=== PATIENT | male | born 1940 | race Caucasian/White ===

== ENCOUNTER 2018-06-01 14:36 | Inpatient (IN) | payer MEDICARE, SELFPAY ==
[2018-06-01] VITALS (8 sets, daily range): BP systolic 120–158; BP diastolic 69–87; PULSE 78–98; RESP 13–18; TEMP 36.4–39.3; O2SAT 97–99; BMI 30.8; BMI 30.2
--- NOTE | 2018-06-01 15:22 | DI.RAD.S_ITS ---
PROCEDURE: XR CHEST 2V INDICATIONS: chest pain TECHNIQUE: 2 views of the chest were acquired. COMPARISON: [facility], , CHEST 2 VIEW, 11/05/2014, 8:32. FINDINGS: Surgical changes and devices: None. Lungs and pleura: No pleural effusions or pneumothorax. Mild pulmonary vascular congestion is seen. No definite focal infiltrate. Mediastinum: Mediastinal contours are normal. Cardiac silhouette is enlarged. Aortic arch calcification is seen. Bones and chest wall: No suspicious bony abnormalities. Soft tissues appear unremarkable. IMPRESSION: Cardiomegaly and mild congestion. No focal infiltrate or pneumothorax. Dictated by: Jose Miguel Vences M.D. on 06/01/2018 at 15:35 Approved by: Jose Miguel Vences M.D. on 06/01/2018 at 15:36
[2018-06-01 15:31] LABS: Add Manual Diff / Slide Review NO; Basophils Percent Auto 0.3 % (0-2); Eosinophils Percent Auto 0.1 % (2-4); Hematocrit 38.2 % (41-53); Hemoglobin 13.2 g/dL (13.5-17.5); Lymphocytes Percent Auto 3.1 % (25-40); Mean Corpuscular HGB Conc 34.6 % (30-36); Mean Corpuscular Hemoglobin 31.6 PG (26-34); Mean Corpuscular Volume 91.5 fL (80-100); Monocytes Percent Auto 1.9 % (3-14); Neutrophils Absolute Auto 15500 /uL (3000-5900); Neutrophils Percent Auto 94.6 % (50-75); Platelet Count 356 X10^3/uL (150-400); Red Blood Cell Count 4.18 X10^6/uL (4.5-5.9); Red Cell Distribution Width 13.2 % (11.6-14.8); White Blood Cell Count 16.4 X10^3/uL (4.5-11.0)
[2018-06-01 15:44] LABS: Alanine Aminotransferase 28 IU/L (21-72); Albumin Globulin Ratio 1.3 (1.0-2.8); Alkaline Phosphatase 66 U/L (38-126); Aspartate Aminotransferase 24 IU/L (17-59); Bilirubin Total 1.2 mg/dL (0.2-1.3); Blood Urea Nitrogen 18 mg/dL (9-20); Calcium 9.8 mg/dL (8.4-10.2); Carbon Dioxide 23 mmol/L (22-32); Chloride 100 mmol/L (98-107); Estimated Glomerular Filt Rate > 60.0 mL/min (>60); Globulin 3.1 g/dL (1.7-4.1); Glucose 140 mg/dL (80-110); HEMOLYSIS < 15 (0-50); Lipase 138 U/L (23-300); Potassium 4.4 mmol/L (3.4-5.1); Sodium 137 mmol/L (137-145); Total Protein 7.1 g/dL (6.3-8.2)
[2018-06-01 15:45] LABS: Lactate (Lactic Acid) 2.7 mmol/L (0.7-2.1)
[2018-06-01] MEDS: SODIUM CHLORIDE 0.9% 1,000 ML 1000 ML IV ×2 (15:45→18:00)
--- NOTE | 2018-06-01 15:52 | DI.CT.S_ITS ---
PROCEDURE: CT ABDOMEN PELVIS W CON INDICATIONS: post L nephrectomy fever, unclear source - abscess? TECHNIQUE: After the administration of intravenous contrast, 5 mm thick sections acquired from the diaphragm to the symphysis. 5 mm coronal and sagittal reformats were acquired. For radiation dose reduction, the following was used: automated exposure control, adjustment of mA and/or kV according to patient size. COMPARISON: [facility], CT, ABDOMEN/PELVIS WITHOUT CONTRAS, 09/01/2017, 9:30. FINDINGS: Image quality: Excellent. ABDOMEN: Lung bases: Lung bases are clear. Heart size is enlarged. There is calcification of the coronary vasculature. Solid organs: Liver is normal in size and enhancement. Gallbladder demonstrates high density foci within its lumen. Biliary system is non dilated. Pancreas enhances normally. Spleen is normal in size and enhancement. No adrenal nodules. The right kidney is within normal limits. Status post left nephrectomy. There is nonloculated fluid within the left retroperitoneum, consistent with post surgical sequelae. No peripheral enhancement to indicate abscess. Peritoneum and bowel: Bowel loops demonstrate normal wall thickness and caliber. There is diverticulosis of the descending and sigmoid colon. No free fluid or air. Nodes and vessels: No retroperitoneal or mesenteric adenopathy by size criteria. Aorta and inferior vena cava are normal in size. Miscellaneous: No ventral hernias. PELVIS: Genitourinary: Bladder wall thickness is normal. Miscellaneous: No inguinal hernias or adenopathy. Bones: No suspicious bony lesions. No vertebral body compression fractures. IMPRESSION: 1. Post surgical sequelae with expected left-sided retroperitoneal postsurgical fluid, status post nephrectomy. No evidence of loculated and/or peripherally enhancing fluid collection to indicate abscess. 2. Left colonic diverticulosis with no evidence of acute diverticulitis. 3. Coronary artery disease. Dictated by: Francy Graff M.D. on 06/01/2018 at 16:32 Approved by: Francy Graff M.D. on 06/01/2018 at 16:35
[2018-06-01 15:56] LABS: Procalcitonin 28.12 ng/mL (<0.5)
--- NOTE | 2018-06-01 15:58 | PC.NURSE ---
lab draws second set of blood cultures, radiology at BS for CXR
[2018-06-01 16:00] LABS: Troponin I < 0.012 ng/mL (0.01-0.034)
[2018-06-01] MEDS: PIPERACILLIN-TAZO 4.5 GM/100 ML FROZ.PIGGY IV (16:14)
[2018-06-01] MEDS: VANCOMYCIN 1,500 MG in SODIUM CHLORIDE 0.9% 500 ML 333.333 ML IV (17:06)
[2018-06-01 17:10] LABS: Bacteria Urine None Seen; RBC Urine None Seen (0-5/HPF)
[2018-06-01 17:11] LABS: Appearance Urine UA CLEAR; Bilirubin Urine UA NEGATIVE (NEGATIVE); Color Urine UA YELLOW; Glucose Urine UA NEGATIVE (Normal); Ketones Urine UA NEGATIVE (NEGATIVE); Leukocyte Esterase Urine UA NEGATIVE (NEGATIVE); Nitrite Urine UA Negative (Negative); Occult Blood Urine UA NEGATIVE (Negative); Protein Urine UA NEGATIVE (Negative); Urobilinogen Urine UA 0.2 E.U./dL (0.2)
[2018-06-01 17:20] LABS: Culture Indicated Urine Cult Not Indicated; Squamous Epithelial Cell Urine 0-1 /HPF; WBC Urine 0-1/HPF (0-5/HPF)
--- NOTE | 2018-06-01 17:45 | ED.SOB ---
HPI - SOB/Dyspnea General Chief Complaint: Shortness of Breath/Dyspnea Stated Complaint: nausea/shaky/feels like body is frozen Time Seen by Provider: 06/01/18 15:08 History of Present Illness HPI 77-year-old male ~15 days post-left nephrectomy for a malignant mass presents for evaluation of malaise, nausea, and shaking chills of proximally one half day duration. Denies chest pain, shortness breath, dysuria, urinary frequency, or abdominal pain, continues to take PO adequately produce urine, flatus, stool at baseline. Patient is on Xarelto for prior DVT's. M/S/F/SocHx notable for: please see HPI; remainder reviewed with patient and in chart. ROS: Negative constitutional, eye, cardiovascular, pulmonary, GI, , MSK, skin, neurologic, psychiatric, endocrine unless noted in the HPI. Exam HR 95, BP 141/87, RR 16, T 97.6 ?F, SaO2 99 % on room air; at 2:43 PM. Gen: pleasant, unwell but not in extremis, appears moderately uncomfortable.. HEENT: NC, AT, PEERL, EOMI, neck supple, no goiter appreciated. Resp: Clear to auscultation bilaterally, normal work of breathing, no accessory muscle usage. Card: Regular rate and rhythm with no murmurs, rubs, or gallops, extremities warm and well perfused. GI: Non-tender to palpation throughout all quadrants, no focal tenderness at McBurney's point, negative Curtis's sign, non-distended, no rebound or guarding. Well healed surgical sites. : No suprapubic tenderness to palpation. MSK: No visible deformities, strength and tone without visually appreciable deficit. Skin: Normal color, no petechiae, no further visible lesions. Neuro: AOx3, no facial asymmetry, vision and hearing WNL. Psych: Mood and affect appropriate. Labs / Imaging (pertinent): WBC 16.4, Hb 13.2, PLT 356, Na 137, K 4.4, Bilirubin 1.2, Lactate 2.7, troponin <0.012, Pro calcitonin 28.12, lipase 138. UA: negative bacteria, negative nitrites, negative leukocyte esterase, 0-1 squamous epithelial cells. CXR: cardiomegaly and mild congestion. No focal infiltrate or pneumothorax. CT abdomen/pelvis: postsurgical sequela with expected left-sided retroperitoneal postsurgical fluid, status post nephrectomy, no evidence of loculated and/or peripherally enhancing fluid collection to indicate abscess. Left colonic diverticulosis with no evidence for acute diverticulitis, coronary artery disease. EKG: SR 80 bpm, no ST segment elevations or depressions, no LBBB. MDM Previous chart, nursing note, labs, imaging, and vitals reviewed. A: 77-year-old male ~15 days post-left nephrectomy for a malignant mass presents for evaluation of malaise, nausea, and shaking chills of proximally one half day duration.. Evaluation: significant concern for sepsis given overall presentation. Source presently unclear. Blood cultures, 30 cc/kg NS fluid bolus (based upon ideal body weight as the patient has a BMI greater than 30), and vancomycin and Zosyn ordered with the initial evaluation. Infectious Source: * Pulmonary: No focal infiltrate on imaging. The absence of significant hypoxemia, tachypnea, or further corroborating symptoms strongly suggests against pneumonia. * Urine: UA noninfectious. * Skin: Consider a cutaneous source unlikely given absence of significant infection appreciated on exam. * AIRPLANE PILOT: Doubt given the lack of meningismus, petechia, and the overall clinical presentation. * Abdomen: Doubt given the non-tender abdomen, and a relatively unremarkable CT abdomen pelvis:. * Spine: Given the absence of back pain and an alternate source further investigation for possible epidural abscess, spinal osteomyelitis, or discitis are not currently warranted. * Lines: Patient without indwelling lines/ports. * Bacteremia: blood cultures pending, cannot be fully excluded at present time. Disposition: admitted for further care. Impression: suspected sepsis (please reference below for remainder of encounter information) Critical Care Time Organ system(s): Cardiopulmonary, vascular, AIRPLANE PILOT, Renal Intervention: Assessment of the patient, interpretation of studies, communication related to patient care. Time: 30 minutes were spent directly related to patient care exclusive of separately billed procedures The patient is also without evidence of pancreatitis (lipase within clinically acceptable limits), adrenal insufficiency is tentatively considered unlikely as there is no evidence of chronic steroid use, no known adrenal insufficiency and the patient has been without refractory hypotension. Thyroid disease was considered, given the absence of known thyroid disease or goiter on exam, and a tentatively explaining etiology for the patient?s presentation further investigation is not currently indicated. Ingestion/OD are felt to be unlikely given history, absence of significant mydriasis, and lack of appreciated clonus or hyperreflexia, as well as an alternate explaining etiology.The possibility of alcohol, benzodiazepine, opiate withdrawal were considered and while history is limited at this point these do not appear to be contributing. Related Data Home Medications Medication Instructions Recorded Confirmed pravastatin [Pravachol] 20 mg PO QDAY #30 tab 07/02/17 06/01/18 amlodipine 2 tab PO DAILY 06/01/18 06/01/18 rivaroxaban [Xarelto] 1 tab PO DAILY 06/01/18 06/01/18 Allergies Allergy/AdvReac Type Severity Reaction Status Date / Time No Known Allergies Allergy Uncoded 01/24/18 12:15 [facility] Social History Smoking Status: Never smoker Exam Initial Vital Signs Initial Vital Signs: Vital Signs Temperature 97.6 F 06/01/18 14:43 Pulse Rate 95 H 06/01/18 14:43 Respiratory Rate 16 06/01/18 14:43 Blood Pressure 141/87 H 06/01/18 14:43 Pulse Oximetry 99 06/01/18 14:43 Course Orders Ordered: ED Orders 06/01/18 15:15 Complete Blood Count AUTO DIFF Stat Comprehensive Metabolic Panel Stat Lactate (Lactic Acid) Stat Lipase Stat Procalcitonin Stat Troponin I Stat 06/01/18 15:22 XR chest 2V Stat EKG-12 Lead Stat 06/01/18 15:48 Blood Culture Stat 06/01/18 15:52 CT abdomen pelvis w con Stat 06/01/18 16:50 Urinalysis and Microscopic Stat Discontinued Medications Sodium Chloride (Normal Saline 0.9%) 1,000 mls @ 1,000 mls/hr IV BOLUS ONE Stop: 06/01/18 16:20 Last Admin: 06/01/18 15:45 Dose: 1,000 mls/hr Sodium Chloride (Normal Saline 0.9%) 1,000 mls @ 1,000 mls/hr IV BOLUS ONE Stop: 06/01/18 16:57 Sodium Chloride (Normal Saline 0.9%) 250 mls @ 1,000 mls/hr IV BOLUS ONE Stop: 06/01/18 16:13 Piperacillin/Tazobactam/Dextrose (Zosyn) 4.5 gm in 100 mls @ 200 mls/hr IV NOW ONE Stop: 06/01/18 16:28 Last Infusion: 06/01/18 17:07 Dose: 0 mls/hr Admin: 06/01/18 16:14 Dose: 200 mls/hr Vancomycin HCl 1,500 mg/ (Sodium Chloride) 500 mls @ 333.333 mls/hr IV NOW ONE Stop: 06/01/18 16:00 Last Admin: 06/01/18 17:06 Dose: 333.333 mls/hr Vital Signs - 8 hr 06/01/18 14:43 06/01/18 15:16 06/01/18 16:18 Temperature 97.6 F Pulse Rate 95 H 98 H 91 H Respiratory Rate 16 13 13 Blood Pressure 141/87 H Blood Pressure [Left Arm] 120/69 139/71 H Pulse Oximetry 99 99 97 MDM - SOB/Dyspnea Lab Data Result diagrams: 06/01/18 15:15 06/01/18 15:15 Lab Results 06/01/18 06/01/18 06/01/18 Range/Units 15:15 15:15 15:15 WBC 16.4 H (4.5-11.0) X10^3/uL RBC 4.18 L (4.5-5.9) X10^6/uL Hgb 13.2 L (13.5-17.5) g/dL Hct 38.2 L (41-53) % MCV 91.5 (80-100) fL MCH 31.6 (26-34) PG MCHC 34.6 (30-36) % RDW 13.2 (11.6-14.8) % Plt Count 356 (150-400) X10^3/uL Neut % (Auto) 94.6 H (50-75) % Lymph % (Auto) 3.1 L (25-40) % [place] % (Auto) 1.9 L (3-14) % Eos % (Auto) 0.1 L (2-4) % Baso % (Auto) 0.3 (0-2) % Neut # (Auto) 80485 H (2144-8424) /uL Sodium 137 (137-145) mmol/L Potassium 4.4 (3.4-5.1) mmol/L Chloride 100 (98-107) mmol/L Carbon Dioxide 23 (22-32) mmol/L BUN 18 (9-20) mg/dL Creatinine 1.00 (0.66-1.25) mg/dL Estimated GFR > 60.0 (>60) mL/min BUN/Creatinine Ratio 18.0 (6-22) Glucose 140 H (80-110) mg/dL Lactate (0.7-2.1) mmol/L Calcium 9.8 (8.4-10.2) mg/dL Total Bilirubin 1.2 (0.2-1.3) mg/dL AST 24 (17-59) IU/L ALT 28 (21-72) IU/L Alkaline Phosphatase 66 (38-126) U/L Troponin I < 0.012 (0.01-0.034) ng/mL Total Protein 7.1 (6.3-8.2) g/dL Albumin 4.0 (3.5-5.0) g/dL Globulin 3.1 (1.7-4.1) g/dL Albumin/Globulin Ratio 1.3 (1.0-2.8) Lipase 138 (23-300) U/L Procalcitonin 28.12 H (<0.5) ng/mL Urine Color Urine Appearance Urine pH (4.5-8.0) Ur Specific [place] (1.000-1.035) Urine Protein (Negative) Urine Glucose (UA) (Normal) g/dL Urine Ketones (NEGATIVE) Urine Occult Blood (Negative) Urine Nitrate (Negative) Urine Bilirubin (NEGATIVE) Urine Urobilinogen (0.2) E.U./dL Ur Leukocyte Esterase (NEGATIVE) Urine RBC (0-5/HPF) Urine WBC (0-5/HPF) Ur Squamous Epith Cells Urine Bacteria (None) Ur Culture Indicated? Micro UA Comment 06/01/18 06/01/18 Range/Units 15:15 16:50 WBC (4.5-11.0) X10^3/uL RBC (4.5-5.9) X10^6/uL Hgb (13.5-17.5) g/dL Hct (41-53) % MCV (80-100) fL MCH (26-34) PG MCHC (30-36) % RDW (11.6-14.8) % Plt Count (150-400) X10^3/uL Neut % (Auto) (50-75) % Lymph % (Auto) (25-40) % [place] % (Auto) (3-14) % Eos % (Auto) (2-4) % Baso % (Auto) (0-2) % Neut # (Auto) (7130-9448) /uL Sodium (137-145) mmol/L Potassium (3.4-5.1) mmol/L Chloride (98-107) mmol/L Carbon Dioxide (22-32) mmol/L BUN (9-20) mg/dL Creatinine (0.66-1.25) mg/dL Estimated GFR (>60) mL/min BUN/Creatinine Ratio (6-22) Glucose (80-110) mg/dL Lactate 2.7 H (0.7-2.1) mmol/L Calcium (8.4-10.2) mg/dL Total Bilirubin (0.2-1.3) mg/dL AST (17-59) IU/L ALT (21-72) IU/L Alkaline Phosphatase (38-126) U/L Troponin I (0.01-0.034) ng/mL Total Protein (6.3-8.2) g/dL Albumin (3.5-5.0) g/dL Globulin (1.7-4.1) g/dL Albumin/Globulin Ratio (1.0-2.8) Lipase (23-300) U/L Procalcitonin (<0.5) ng/mL Urine Color Yellow Urine Appearance Clear Urine pH 7.0 (4.5-8.0) Ur Specific [place] 1.010 (1.000-1.035) Urine Protein Negative (Negative) Urine Glucose (UA) Negative (Normal) g/dL Urine Ketones Negative (NEGATIVE) Urine Occult Blood Negative (Negative) Urine Nitrate Negative (Negative) Urine Bilirubin Negative (NEGATIVE) Urine Urobilinogen 0.2 (0.2) E.U./dL Ur Leukocyte Esterase Negative (NEGATIVE) Urine RBC None seen (0-5/HPF) Urine WBC 0-1/hpf (0-5/HPF) Ur Squamous Epith Cells 0-1 /hpf Urine Bacteria None seen (None) Ur Culture Indicated? Cult not indicated Micro UA Comment Not Reportable Discharge Plan Departure Prescriptions: No Action pravastatin [Pravachol] 20 MG tablet 20 mg PO QDAY Qty: 30 RF: 0 amlodipine 5 mg tablet 2 tab PO DAILY RF: 0 rivaroxaban [Xarelto] 20 mg tablet 1 tab PO DAILY RF: 0
--- NOTE | 2018-06-01 19:26 | PM.HP.1 ---
History of Present Illness Date Patient Seen: 06/01/18 Time Patient Seen: 19:00 Chief complaint: nausea/shaky/feels like body is frozen Narrative: This is a 77-year-old male with with recent history of left-sided nephrectomy for renal cell carcinoma presenting with acute onset of shaking chills, leukocytosis and otherwise unremarkable clinical exam, labs and imaging studies. Denies similar events in the past. Current symptoms were present for the last 12 hr. Due to strong suspicion of possible systemic infection from 100 at night source of this and was made to admit patient for observation. Blood cultures were drawn and consult pending. Patient was started on empiric antibiotic therapies commission of IV vancomycin and Zosyn, IV fluid support, symptomatic and supportive care. Patient History Medical History History of nephrectomy, unilateral (Acute) Hypertension (Acute) Family & Social History Family History: Reviewed 06/01/18 by Omega Seymour MD Social History: household members spouse Prior Living Arrangements House Safety & Behavioral: Feels Safe in Current Yes Environment Been Physically Hurt or No Threatened By a Person Suicidal Ideation Description None Suicide Plan Description No Plan Tobacco & Substance use: Tobacco type cigarettes Smoking Status Former smoker alcohol intake current alcohol intake frequency holiday/special occasion Substance Use Type marijuana Meds Home Medications Medication Instructions Recorded Confirmed Type pravastatin [Pravachol] 20 mg PO QDAY #30 tab 07/02/17 06/01/18 History amlodipine 2 tab PO DAILY 06/01/18 06/01/18 History rivaroxaban [Xarelto] 1 tab PO DAILY 06/01/18 06/01/18 History senna 2 tab PO BID 06/01/18 06/01/18 History Allergies Allergy/AdvReac Type Severity Reaction Status Date / Time No Known Allergies Allergy Uncoded 06/01/18 19:31 Review of Systems Review of Systems All systems reviewed & are unremarkable except as noted in HPI and below Exam Vital Signs (past 8 hours): - 06/01/18 14:43 06/01/18 15:16 06/01/18 16:18 Temperature 97.6 F Pulse Rate 95 H 98 H 91 H Respiratory Rate 16 13 13 Blood Pressure 141/87 H Blood Pressure [Left Arm] 120/69 139/71 H Pulse Oximetry 99 99 97 06/01/18 18:02 06/01/18 18:39 06/01/18 19:02 Temperature 102.7 F H 97.9 F Pulse Rate 90 86 78 Respiratory Rate 14 18 16 Blood Pressure 121/72 H 127/76 H Blood Pressure [Left Arm] 158/82 H Pulse Oximetry 99 99 99 Oxygen Delivery Method Room Air Oxygen Flow Rate 0 Narrative Exam Narrative: Constitutional: Well-nourished well-developed male in mild distress he is alert and oriented x3 HEENT: Unremarkable with Eyes: PERRLA, EOMI Neck: Supple no lymphadenopathy, no jugular venous distention, no bruits on auscultation of carotid artery Pulmonary: Clear to auscultation bilaterally Cardiovascular: regular rhythm and rate no murmurs Gastrointestinal: Abdomen is soft, mildly tender along the fresh incision sites on right upper abdomen along with midline, non discernible organomegaly. Extremities: Warm to touch, no edema Skin: No skin lesions, no rash Neurological: Nonfocal exam Objective Imaging CT scan - abdomen: My impression: Seizures and pelvis: Postsurgical sequela with expected left-sided 33 previously with presurgical fluid, status post nephrectomy, no evidence of loculated and/or peripherally enhancing fluid collection to indicate abscess. Left colonic diverticulosis with no evidence of acute diverticulitis, coronary artery disease. ECG: Normal sinus rhythm at 80 beats per minute, no ST changes seen. Labs Result Diagrams: 06/01/18 15:15 06/01/18 15:15 Labs: Laboratory Results - last 24 hr 06/01/18 06/01/18 06/01/18 15:15 15:15 15:15 WBC 16.4 H RBC 4.18 L Hgb 13.2 L Hct 38.2 L MCV 91.5 MCH 31.6 MCHC 34.6 RDW 13.2 Plt Count 356 Neut % (Auto) 94.6 H Lymph % (Auto) 3.1 L [place] % (Auto) 1.9 L Eos % (Auto) 0.1 L Baso % (Auto) 0.3 Neut # (Auto) 22827 H Sodium 137 Potassium 4.4 Chloride 100 Carbon Dioxide 23 BUN 18 Creatinine 1.00 Estimated GFR > 60.0 BUN/Creatinine Ratio 18.0 Glucose 140 H Lactate Calcium 9.8 Total Bilirubin 1.2 AST 24 ALT 28 Alkaline Phosphatase 66 Troponin I < 0.012 Total Protein 7.1 Albumin 4.0 Globulin 3.1 Albumin/Globulin Ratio 1.3 Lipase 138 Procalcitonin 28.12 H Urine Color Urine Appearance Urine pH Ur Specific [place] Urine Protein Urine Glucose (UA) Urine Ketones Urine Occult Blood Urine Nitrate Urine Bilirubin Urine Urobilinogen Ur Leukocyte Esterase Urine RBC Urine WBC Ur Squamous Epith Cells Urine Bacteria Ur Culture Indicated? Micro UA Comment 06/01/18 06/01/18 15:15 16:50 WBC RBC Hgb Hct MCV MCH MCHC RDW Plt Count Neut % (Auto) Lymph % (Auto) [place] % (Auto) Eos % (Auto) Baso % (Auto) Neut # (Auto) Sodium Potassium Chloride Carbon Dioxide BUN Creatinine Estimated GFR BUN/Creatinine Ratio Glucose Lactate 2.7 H Calcium Total Bilirubin AST ALT Alkaline Phosphatase Troponin I Total Protein Albumin Globulin Albumin/Globulin Ratio Lipase Procalcitonin Urine Color Yellow Urine Appearance Clear Urine pH 7.0 Ur Specific [place] 1.010 Urine Protein Negative Urine Glucose (UA) Negative Urine Ketones Negative Urine Occult Blood Negative Urine Nitrate Negative Urine Bilirubin Negative Urine Urobilinogen 0.2 Ur Leukocyte Esterase Negative Urine RBC None seen Urine WBC 0-1/hpf Ur Squamous Epith Cells 0-1 /hpf Urine Bacteria None seen Ur Culture Indicated? Cult not indicated Micro UA Comment Not Reportable Assessment & Plan Plan: Assessment/Plan Narrative: 1. Sepsis: Exact source of infection remains unclear at this time. Differential includes a possible infection at the site of recent nephrectomy and, acute diverticulitis. Pending blood cultures x2. Start on empiric antibiotic therapy is conditional IV vancomycin and Zosyn, IV hydration with normal saline, symptomatic and supportive care. 2. Leukocytosis: As above 3. Left-sided renal cell carcinoma: Status post a recent left-sided nephrectomy, management as above 4. GIprophylaxis: Regular diet 5. DVT prophylaxis: Patient on therapy is Xarelto 6. Code status: The patient is a full code. Quality VTE Deep Vein Thrombosis/Pulmonary Embolism Present on Admission: No
[2018-06-01 19:28] LABS: Reflexed Lactate in 2 Hours Y
[2018-06-01 20:17] LABS: Lactate 2HR (Lactic Acid Rflx) 1.6 mmol/L (0.7-2.1)
[2018-06-01] MEDS: SODIUM CHLORIDE 0.9% 1,000 ML 125 ML IV (20:17)
[2018-06-01] MEDS: PRAVASTATIN 20 MG TABLET PO (20:25)
--- NOTE | 2018-06-01 22:03 | PC.NURSE ---
ADMISSION received pt at approximately 1855 via [facility], accompanied by ED CORPORATE COMMUNICATIONS INTERN. A&Ox3, LITTLE TRAVERSE. breath sounds clear. abdominal incision from previous nephrectomy healed. c/o slight tenderness to incision site but currently denies any fever/chills, pain, dizziness, N/V. pt started on MIVF. oriented to room and call light.
[2018-06-01] MEDS: ACETAMINOPHEN 325 MG TABLET 650 MG PO (23:02)
[2018-06-02 01:24] VITALS: O2SAT 97
[2018-06-02 04:15] VITALS: BP 134/79; PULSE 83; RESP 15; TEMP 36.7; O2SAT 97
[2018-06-02] MEDS: SODIUM CHLORIDE 0.9% 1,000 ML 125 ML IV ×2 (04:15→12:09)
[2018-06-02 06:00] LABS: Alanine Aminotransferase 37 IU/L (21-72); Albumin 3.3 g/dL (3.5-5.0); Albumin Globulin Ratio 1.1 (1.0-2.8); Alkaline Phosphatase 62 U/L (38-126); Aspartate Aminotransferase 24 IU/L (17-59); BUN Creatinine Ratio 11.8 (6-22); Bilirubin Total 1.1 mg/dL (0.2-1.3); Blood Urea Nitrogen 13 mg/dL (9-20); Calcium 8.8 mg/dL (8.4-10.2); Carbon Dioxide 27 mmol/L (22-32); Chloride 102 mmol/L (98-107); Estimated Glomerular Filt Rate > 60.0 mL/min (>60); Globulin 2.9 g/dL (1.7-4.1); Glucose 141 mg/dL (80-110); HEMOLYSIS < 15 (0-50); Magnesium 1.7 mg/dL (1.6-2.3); Potassium 4.1 mmol/L (3.4-5.1); Sodium 136 mmol/L (137-145); Total Protein 6.2 g/dL (6.3-8.2)
[2018-06-02 06:02] LABS: Add Manual Diff / Slide Review NO; Basophils Percent Auto 0.5 % (0-2); Eosinophils Percent Auto 0.5 % (2-4); Hematocrit 35.5 % (41-53); Hemoglobin 12.3 g/dL (13.5-17.5); Lymphocytes Percent Auto 5.3 % (25-40); Mean Corpuscular HGB Conc 34.6 % (30-36); Mean Corpuscular Hemoglobin 31.9 PG (26-34); Monocytes Percent Auto 6.1 % (3-14); Neutrophils Absolute Auto 7400 /uL (3000-5900); Neutrophils Percent Auto 87.6 % (50-75); Platelet Count 273 X10^3/uL (150-400); Red Blood Cell Count 3.86 X10^6/uL (4.5-5.9); Red Cell Distribution Width 13.3 % (11.6-14.8); White Blood Cell Count 8.4 X10^3/uL (4.5-11.0)
--- NOTE | 2018-06-02 06:41 | PC.NURSE ---
[employer] Executive Director Summary: Alert, oriented X3. Vital signs stable. Still having elevated temps. Pt denies pain or discomfort. Voiding in urinal, urine is clear yellow.
[2018-06-02 08:00] VITALS: BP 146/83; PULSE 89; RESP 20; TEMP 37.6; O2SAT 98
[2018-06-02 08:30] VITALS: O2SAT 97
--- NOTE | 2018-06-02 08:52 | CM.DANOTE ---
DCP: Case received, EMR reviewed and met with patient. Introduced self and role. DCP template completed with information currently available. Patient is a 77 year old male who admitted yesterday evening to the care of the hospitalist team. PCP: Dr. Echevarria. Payer: confirmed: Medicare/AARP Patient carries a dianosis of sepsis, had recent post left nephrectomy. Came in with symptoms of tremors, as well as nausea. Lives at home with spouse. P: DCP to continue to assess. May be appropriate to return home, or can look into skilled options. Alice Beltran RN/[employer] Sales Consultant
[2018-06-02] MEDS: ACETAMINOPHEN 325 MG TABLET 650 MG PO ×2 (09:02→17:04)
--- NOTE | 2018-06-02 10:08 | PC.NURSE ---
Addendum entered by Natali Guerrero R.N. 06/02/18 14:25: HOME MEDS - spouse brought in list of home medications, verified dosages and copy placed in chart. Original Note: AM NOTE - alert, stood at bedside and voided clear yellow urine, denies dizziness, no nausea or pain, does take tylenol routinely at home post operatively and given this am.
--- NOTE | 2018-06-02 10:25 | PT.IIE ---
Medical History (Last Updated 06/01/18 @ 19:30 by Charity Dickson RN) History of nephrectomy, unilateral (Acute) Hyperlipemia (Acute) Hypertension (Acute) Physical Therapy Inpatient Evaluation/Re-Eval M1 PT/OT-IP Prior Functional Status Start: 06/02/18 11:34 Freq: NEEDED Status: Active Protocol: Document 06/02/18 10:25 AB (Rec: 06/02/18 11:40 AB [id number]) Medical Review Prior Functional Status Medical History Reviewed Yes Communication able to make needs known Mobility and Gait stated that he is independent with all mobilities and ambulation without AD Social History Household Members spouse Living Arrangements House Number of Floors (Floors) Two Floors Number of Stairs To Enter/Railing? has no steps to enter the house but has 17 steps down to bedroom level with R rail descending. Home Environment Standard Height Toilet Walk in Shower Employment Status Retired M2 PT-IP Current Condition Start: 06/02/18 11:34 Freq: NEEDED Status: Active Protocol: Document 06/02/18 10:25 AB (Rec: 06/02/18 11:40 AB [id number]) Physical Therapy Current Condition Current Condition Evaluation Date 06/02/18 Treatment Diagnosis sepsis Onset Date 06/01/18 M3 PT-IP Subjective Start: 06/02/18 11:34 Freq: NEEDED Status: Active Protocol: Document 06/02/18 10:25 AB (Rec: 06/02/18 11:40 AB [id number]) Subjective Physical Therapy Visit Type Type Initial Evaluation Visit Start Time 10:25 Visit Stop Time 10:55 Total Visit Minutes 30 Number of UNDERWEAR WELTER Visits 0 Physical Therapy Visit Comments Patient Comments pt agreeable to do therapy Therapy Pain Assessment Pain Present Pain Present Denied Pain M4 PT-IP Mobility and Gait Start: 06/02/18 11:34 Freq: NEEDED Status: Active Protocol: Document 06/02/18 10:25 AB (Rec: 06/02/18 11:40 AB [id number]) PT-Bed Mobility Assessment Supine to Sit Supine to Sit Standby Assistance Sit to Supine Sit to Supine Standby Assistance Scooting Scooting to Edge of Bed Standby Assistance PT-Transfer Assessment Sit to and From Stand Sit to and from Stand Standby Assistance Equipment Transfer Assistive Device Gait Belt Transfers Transfer Destination Chair Transfer Technique Stand Step Pivot Transfer Ability Level of Assist Standby Assistance Gait Assessment Gait Gait Assistance Required: Standby Assistance Distance (Feet) (feet) 50 Able to Maintain Weight Bearing Status Yes During Gait Assistive Devices Assistive Device Gait Belt Orthotic/Prosthetic Devices or Brace: No Gait Deviations General Gait Pattern Antalgic Factors Limiting Gait Function Factors Limiting Gait Function Decreased Activity Tolerance Decreased Strength Comments Gait Comments has increase bilateral hip ER/ toeing out PT-Balance Assessment Sitting Balance and Reactions Static Sitting Balance Ability Good Dynamic Sitting Balance Ability Good Standing Balance and Reactions Static Standing Balance Ability Good Dynamic Standing Balance Ability Fair M5 PT-IP Objective Assessments Start: 06/02/18 11:34 Freq: NEEDED Status: Active Protocol: Document 06/02/18 10:25 AB (Rec: 06/02/18 11:40 AB [id number]) Orientation Orientation/Cognition Level of Alertness Alert Orientation Name Age Birthday Month Date Year Day of Week Place Situation Safety Awareness Understands Safety Issues Strength Lower Extremity Strength Assessment Within Functional Limits M6 PT-IP Treatment Start: 06/02/18 11:34 Freq: NEEDED Status: Active Protocol: Document 06/02/18 10:25 AB (Rec: 06/02/18 11:40 AB [id number]) Physical Therapy Treatment Education Education Provided Safety M7 PT-IP Assessment and Plan Start: 06/02/18 11:34 Freq: NEEDED Status: Active Protocol: Document 06/02/18 10:25 AB (Rec: 06/02/18 11:40 AB [id number]) PT Summary Assessment and Plan Potential Rehabilitation Potential Good Status of Condition at Evaluation Stable Summary Impairments Pain ROM Strength Balance Coordination Sensation Tone Cognition Bed Mobility Transfers Gait Activity Tolerance Assessment Summary pt requiring SBA with mobility but presents with decrease activity tolerance affecting mobility. pt plans to go home with spouse to assist him at home. Goals Bed Mobility Goal Independent Transfer Goal Independent Gait Goal Independent Gait Distance 200 Other Goals up/down 17 steps with R rail descending Frequency of Treatment Frequency Of Treatment Once a Day Treatment Plan Physical Therapy Treatment Plan Bed Mobility Training Transfer Training Gait Training Therapeutic Exercise Balance Retraining Neuromuscular Re-ed Coordination Retraining Manual Therapy Recommendations To Nursing Amount of Assist Needed Standby Assistance Discharge Recommendations PT Discharge Recommendations Home with Assistance
[2018-06-02] MEDS: RIVAROXABAN 10 MG TABLET 20 MG PO (11:57)
[2018-06-02] MEDS: PRAVASTATIN 20 MG TABLET PO (11:57)
[2018-06-02 12:00] VITALS: BP 121/76; PULSE 73; RESP 16; TEMP 37.1; O2SAT 98
[2018-06-02 15:22] VITALS: BP 138/77; PULSE 79; RESP 16; TEMP 37.3; O2SAT 98
--- NOTE | 2018-06-02 17:15 | OT.IP.TRT ---
Occupational Therapy Treatment Note M3 OT- IP Subjective and Pain Start: 06/02/18 14:36 Freq: Status: Active Protocol: Document 06/02/18 17:14 [facility] (Rec: 06/02/18 17:15 [facility] [id number]) OT- Subjective Occupational Therapy Visit Type Type Patient Unavailable Notes Pt having dinner and therefore to see pt tomorrow for OT eval.
--- NOTE | 2018-06-02 18:20 | PM.DS.1 ---
History of Present Illness Chief complaint: nausea/shaky/feels like body is frozen Narrative: This is a 77-year-old male with with recent history of left-sided nephrectomy for renal cell carcinoma presenting with acute onset of shaking chills, leukocytosis and otherwise unremarkable clinical exam, labs and imaging studies. Denies similar events in the past. Current symptoms were present for the last 12 hr. Due to strong suspicion of possible systemic infection patient was admitted for observation. Patient was started on empiric antibiotic therapy with combination of IV vancomycin and Zosyn, IV fluid support, symptomatic and supportive care. Discharge Providers Date of admission: 06/01/18 18:24 Primary care physician: Concepcion Echevarria PA-C Consults: 06/01/18 18:46 Consult to Discharge Planning Routine Comment: Consult to Occupational Therapy Evaluate & Treat Comment: Physician Instructions: Evaluate and treat Consult to Physical Therapy Evaluate & Treat Comment: Physician Instructions: Evaluate and Treat Discharge provider: Omega Seymour MD Summary Discharge Diagnosis: 1. Evolving Sepsis: Patient presents with a clinical symptoms of fever, chills, elevated white blood cell count, general weakness and malaise of acute onset. Exact source of infection remains unclear at this time in spite of imaging studies conducted. Most probable Differential included a possible infection at the site of recent nephrectomy and, acute diverticulitis. Patient was started on empiric antibiotic therapy with IV vancomycin and Zosyn, IV hydration with normal saline, symptomatic and supportive care with good response. At that time we cannot needs to rule in or rule out additional suspected diagnostic possibilities. Other labs this morning, patient remains hemodynamically stable with complete resolution of presenting symptoms. Patient is afebrile with resultant leukocytosis. He resumed oral intake and usual activities and tolerating them well. 2. Leukocytosis: As above, resolved. 3. Left-sided renal cell carcinoma: Status post a recent left-sided nephrectomy, with a benign clinical exam and imaging studies conducted on admission. 4. Diverticulosis : With benign clinical exam of his abdomen. No obvious abnormal findings on CT abdomen pelvis to suggest diverticulitis. 5. Disposition: Patient is getting discharged home on home medications Hospital Course: This is a 89-year-old male with complex medical problems who presented to the hospital with clinical symptoms of evolving sepsis from an unclear infection source. Patient responded nicely to empiric IV antibiotic therapy initiated on admission with IV vancomycin and Zosyn with resolution of presenting symptoms (fever, shaking chills, general weakness, malaise) and leukocytosis. At the time of discharge appears to be at the baseline of his house and function appear. Given the extensive imaging studies did not reveal possible cause behind presenting symptoms decision was made to release him back home per his request. Patient to resume outpatient follow-up with his primary care physician and specialists involved in his care. He was instructed to return to the hospital if his symptoms do recur Status at Discharge Functional status at discharge: independent ambulation Overall status at discharge: patient is back to baseline Time Spent with Patient Less than 30 minutes Exam Vital Signs (past 8 hours): - 06/02/18 12:00 06/02/18 15:22 Temperature 98.7 F 99.1 F Pulse Rate 73 79 Respiratory Rate 16 16 Blood Pressure 121/76 H 138/77 H Pulse Oximetry 98 98 Oxygen Delivery Method Room Air Oxygen Flow Rate [address] scan - abdomen: Radiologist's impression: CT scan - abdomen: My impression: Seizures and pelvis: Postsurgical sequela with expected left-sided 33 previously with presurgical fluid, status post nephrectomy, no evidence of loculated and/or peripherally enhancing fluid collection to indicate abscess. Left colonic diverticulosis with no evidence of acute diverticulitis, coronary artery disease. ECG: ECG: Normal sinus rhythm at 80 beats per minute, no ST changes seen. Chest x-ray: Radiologist's impression: IMPRESSION: Cardiomegaly and mild congestion. No focal infiltrate or pneumothorax. Dictated by: Jose Miguel Vences M.D. on 06/01/2018 at 15:35 Approved by: Jose Miguel Vences M.D. on 06/01/2018 at 15:36 Labs Result Diagrams: 06/02/18 05:30 06/02/18 05:30 Labs: Laboratory Results - last 24 hr 06/01/18 06/02/18 06/02/18 19:52 05:30 05:30 WBC 8.4 RBC 3.86 L Hgb 12.3 L Hct 35.5 L MCV 92.0 MCH 31.9 MCHC 34.6 RDW 13.3 Plt Count 273 Neut % (Auto) 87.6 H Lymph % (Auto) 5.3 L [place] % (Auto) 6.1 Eos % (Auto) 0.5 L Baso % (Auto) 0.5 Neut # (Auto) 7400 H Sodium 136 L Potassium 4.1 Chloride 102 Carbon Dioxide 27 BUN 13 Creatinine 1.10 Estimated GFR > 60.0 BUN/Creatinine Ratio 11.8 Glucose 141 H Lactate 1.6 Calcium 8.8 Magnesium 1.7 Total Bilirubin 1.1 AST 24 ALT 37 Alkaline Phosphatase 62 Total Protein 6.2 L Albumin 3.3 L Globulin 2.9 Albumin/Globulin Ratio 1.1 Discharge Plan Discharge Plan Patient Disposition: Home Provider Discharge Instructions Diet: Low-fat Skin/Wound/Dressing Care Report to your healthcare provider any signs of infection, such as:: chills, fever and night sweats Discharge Data Primary Care Provider: Concepcion Echevarria Attending Provider: Omega Seymour Admit Date/Time: 06/01/18 18:24 Discharge Interventions Interventions: Discharge assessment Last Done: 06/02/18 18:06 Quality VTE Deep Vein Thrombosis/Pulmonary Embolism Present on Admission: No
--- NOTE | 2018-06-02 18:53 | PC.NURSE ---
DISCHARGE NOTE: Patient discharged home at 1850 via POV with spouse. Discharge instructions reviewed with patient. No questions for this RN at time of discharge. Patient verbalized understanding. Patient given a list of [place] doctors to call as patient is looking to establish a new primary doctor in [place]. IV removed without complaint. Patient walked to POV with spouse at time of discharge.
[2018-06-03 01:03] LABS: Acinetobacter baumannii Not Detected (Not Detect); Enterobacteriaceae species Not Detected (Not Detect); Enterococcus species Not Detected (Not Detect); Listeria monocytogenes Not Detected (Not Detect); Staphylococcus species Not Detected (Not Detect); Streptococcus agalactiae (Gr B Not Detected (Not Detect); Streptococcus pneumonia Not Detected (Not Detect); Streptococcus pyogenes (Gr A) Not Detected (Not Detect); Streptococcus species Not Detected (Not Detect)
[2018-06-03 01:04] LABS: E. coli Not Detected (Not Detect); Enterobacter cloacae complex Not Detected (Not Detect); Haemophilus influenzae Not Detected (Not Detect); KPC (carbapenem-resist gene) Not Detected (Not Detect); Neisseria meningitidis Not Detected (Not Detect); Proteus species Not Detected (Not Detect); Serratia marcescens Not Detected (Not Detect)
[2018-06-03 01:05] LABS: Candida albicans Not Detected (Not Detect); Candida glabrata Not Detected (Not Detect); Candida krusei Not Detected (Not Detect); Candida parapsilosis Not Detected (Not Detect); Pseudomonas aeruginosa Detected (Not Detect)
[2018-06-03 01:06] LABS: Candida tropicalis Not Detected (Not Detect)
--- NOTE | 2018-06-03 15:12 | CM.DPC ---
DCP Cont: Patient was given discharge orders, as he was back to baseline, and able to ambulate freely. P: Discharged home. Alice Beltran RN/Medical Lab Technologist
== END 2018-06-02 18:50 | disposition home or self-care (01) | DRG 863 ==
LOC: ED 18:21 → AC 18:25
PROVIDERS: Admitting Provider Hospitalist; Emergency Provider Emergency Medicine; Family Provider Physician Assistant; PCP Physician Assistant; Visit Provider Hospitalist
DX: T81.4XXA Infection following a procedure, initial encounter (principal); C64.2 Malignant neoplasm of left kidney, except renal pelvis; K57.92 Diverticulitis of intestine, part unspecified, without perforation or abscess without bleeding; I10 Essential (primary) hypertension; Z90.5 Acquired absence of kidney; K57.90 Diverticulosis of intestine, part unspecified, without perforation or abscess without bleeding
CPT/HCPCS: 36415; 36591; 71046; 74177; 80053; 81001; 83605; 83690; 83735; 84145; 84484; 85025; 87040; 87077; 87150; 87186; 87205; 93005; 93010; 96365; 96366; 96367; 97161; 99282; 99285; 99406; J2543; Q9967

== ENCOUNTER 2018-06-14 14:38 | Emergency (ER) | payer MEDICARE, SELFPAY ==
[2018-06-01 19:02] VITALS: BMI 30.2
[2018-06-14 14:53] VITALS: BP 143/94; PULSE 89; RESP 17; TEMP 35.9; O2SAT 99; BMI 30.1
--- NOTE | 2018-06-14 14:53 | ED.RECABL ---
HPI - Recheck/Abnormal Lab/Rx <PAOLO Hare-BC - Last Filed: 06/14/18 19:26> General Chief Complaint: Recheck/Abnormal Lab/Rx Stated Complaint: NEED TO GET A BLOOD CULTURE TEST Time Seen by Provider: 06/14/18 14:52 Source: patient Mode of arrival: ambulatory Limitations: no limitations History of Present Illness HPI narrative: Patient presents stating that his kidney surgeon would like him to get repeat blood culture test performed. Patient was previously seen and admitted for sepsis related to recent nephrectomy. He was given vancomycin and Zosyn while inpatient. He had 1 positive blood culture drawn on 06/01. He had a negative blood culture drawn on 06/01 and another negative culture drawn on 06/02. He presents today without fever, without complaints of chills, nausea, vomiting or diarrhea. He states he did not have a primary care provider to go to to order a blood culture. He states he feels much improved since his last admission. Related Data Home Medications Medication Instructions Recorded Confirmed pravastatin [Pravachol] 20 mg PO QDAY #30 tab 07/02/17 06/01/18 amlodipine 2 tab PO DAILY 06/01/18 06/01/18 rivaroxaban [Xarelto] 1 tab PO DAILY 06/01/18 06/01/18 senna 2 tab PO BID 06/01/18 06/01/18 Allergies Allergy/AdvReac Type Severity Reaction Status Date / Time No Known Allergies Allergy Verified 06/14/18 14:55 Review of Systems <PAOLO Hare-BC - Last Filed: 06/14/18 19:26> Review of Systems GENERAL: See HPI HEENT: Denies sinus pain, ear pain, sore throat, difficulty swallowing, dizziness. RESPIRATORY: Denies dyspnea, cough, wheezing, hemoptysis, sputum. CARDIOVASCULAR: Denies chest pain, palpitations, orthopnea, edema, GASTROINTESTINAL: Denies nausea, vomiting, abdominal pain, diarrhea, constipation, melena. : Denies dysuria, frequency, incontinence, hematuria, urinary retention. MUSCULOSKELETAL: denies weakness, joint pain, or bony pain SKIN: Denies rash, skin lesions, or other NEUROLOGIC: Denies weakness, headache, numbness, change in speech, confusion, seizures, incoordination. PSYCHIATRIC: No concerning psychosocial issues. 12 point review of systems is negative except for those stated above Exam <PAOLO Hare-BC - Last Filed: 06/14/18 19:26> Narrative Exam Narrative: GENERAL: Elderly gentleman sitting on stretcher. HEAD: Atraumatic. Normocephalic. No temporal or scalp tenderness. EYES: Pupils equal round and reactive. Extraocular motions intact. No scleral icterus. No injection or drainage. ENT: Nose without bleeding, purulent drainage or septal hematoma. Throat without erythema, tonsillar hypertrophy or exudate. Uvula midline. Airway patent. NECK: Trachea midline. No JVD or lymphadenopathy. Supple, nontender, no meningeal signs. CARDIOVASCULAR: Regular rate and rhythm without murmurs, gallops, or rubs. RESPIRATORY: Clear to auscultation. Breath sounds equal bilaterally. No wheezes, rales, or rhonchi. GASTROINTESTINAL: Abdomen soft, non-tender, nondistended. No hepato-splenomegaly, or palpable masses. No guarding. EXTREMITIES: No clubbing, cyanosis, or edema. No joint tenderness, effusion, or edema noted. BACK: Nontender without deformity or crepitance. No flank tenderness. NEURO: AOx3. SKIN: Surgical incision is clean dry and intact. No signs or symptoms of infection. Initial Vital Signs Initial Vital Signs: Vital Signs Temperature 96.6 F L 06/14/18 14:53 Pulse Rate 89 06/14/18 14:53 Respiratory Rate 17 06/14/18 14:53 Blood Pressure 143/94 H 06/14/18 14:53 Pulse Oximetry 99 06/14/18 14:53 <Nory Santamaria DO - Last Filed: 06/15/18 10:36> Initial Vital Signs Initial Vital Signs: Vital Signs Temperature 96.6 F L 06/14/18 14:53 Pulse Rate 89 06/14/18 14:53 Respiratory Rate 17 06/14/18 14:53 Blood Pressure 143/94 H 06/14/18 14:53 Pulse Oximetry 99 06/14/18 14:53 Course <LUZ Hare - Last Filed: 06/14/18 19:26> Orders Ordered: ED Orders 06/14/18 15:11 Blood Culture Stat 06/14/18 15:52 Complete Blood Count AUTO DIFF Stat Comprehensive Metabolic Panel Stat Lactate (Lactic Acid) Stat 06/14/18 16:00 Urinalysis and Microscopic Stat Vital Signs - 8 hr 06/14/18 14:53 06/14/18 16:44 Temperature 96.6 F L Pulse Rate 89 76 Respiratory Rate 17 Blood Pressure 143/94 H Blood Pressure [Right Arm] 156/90 H Pulse Oximetry 99 98 <Nory Santamaria DO - Last Filed: 06/15/18 10:36> Orders Ordered: ED Orders 06/14/18 15:11 Blood Culture Stat 06/14/18 15:52 Complete Blood Count AUTO DIFF Stat Comprehensive Metabolic Panel Stat Lactate (Lactic Acid) Stat 06/14/18 16:00 Urinalysis and Microscopic Stat Vital Signs - 8 hr 06/14/18 14:53 06/14/18 16:44 Temperature 96.6 F L Pulse Rate 89 76 Respiratory Rate 17 Blood Pressure 143/94 H Blood Pressure [Right Arm] 156/90 H Pulse Oximetry 99 98 MDM - Recheck/Abnormal Lab/Rx <CHAGO Hare - Last Filed: 06/14/18 19:26> Lab Data Attestation: I reviewed the patient's lab results. Result diagrams: 06/14/18 15:52 06/14/18 15:52 Lab Results 06/14/18 06/14/18 06/14/18 Range/Units 15:52 15:52 15:52 WBC 9.4 (4.5-11.0) X10^3/uL RBC 4.41 L (4.5-5.9) X10^6/uL Hgb 14.0 (13.5-17.5) g/dL Hct 40.1 L (41-53) % MCV 90.8 (80-100) fL MCH 31.7 (26-34) PG MCHC 34.9 (30-36) % RDW 12.8 (11.6-14.8) % Plt Count 299 (150-400) X10^3/uL Neut % (Auto) 64.2 (50-75) % Lymph % (Auto) 23.4 L (25-40) % [place] % (Auto) 7.9 (3-14) % Eos % (Auto) 3.6 (2-4) % Baso % (Auto) 0.9 (0-2) % Neut # (Auto) 6100 H (8388-1550) /uL Sodium 146 H (137-145) mmol/L Potassium 4.3 (3.4-5.1) mmol/L Chloride 104 (98-107) mmol/L Carbon Dioxide 30 (22-32) mmol/L BUN 18 (9-20) mg/dL Creatinine 1.10 (0.66-1.25) mg/dL Estimated GFR > 60.0 (>60) mL/min BUN/Creatinine Ratio 16.4 (6-22) Glucose 97 (80-110) mg/dL Lactate 1.2 (0.7-2.1) mmol/L Calcium 9.7 (8.4-10.2) mg/dL Total Bilirubin 0.7 (0.2-1.3) mg/dL AST 18 (17-59) IU/L ALT 20 L (21-72) IU/L Alkaline Phosphatase 81 (38-126) U/L Total Protein 7.7 (6.3-8.2) g/dL Albumin 4.3 (3.5-5.0) g/dL Globulin 3.4 (1.7-4.1) g/dL Albumin/Globulin Ratio 1.3 (1.0-2.8) Urine Color Urine Appearance Urine pH (4.5-8.0) Ur Specific [place] (1.000-1.035) Urine Protein (Negative) Urine Glucose (UA) (Normal) g/dL Urine Ketones (NEGATIVE) Urine Occult Blood (Negative) Urine Nitrate (Negative) Urine Bilirubin (NEGATIVE) Urine Urobilinogen (0.2) E.U./dL Ur Leukocyte Esterase (NEGATIVE) Urine RBC (0-5/HPF) Urine WBC (0-5/HPF) Ur Squamous Epith Cells Urine Bacteria (None) Ur Culture Indicated? Micro UA Comment 06/14/18 Range/Units 16:00 WBC (4.5-11.0) X10^3/uL RBC (4.5-5.9) X10^6/uL Hgb (13.5-17.5) g/dL Hct (41-53) % MCV (80-100) fL MCH (26-34) PG MCHC (30-36) % RDW (11.6-14.8) % Plt Count (150-400) X10^3/uL Neut % (Auto) (50-75) % Lymph % (Auto) (25-40) % [place] % (Auto) (3-14) % Eos % (Auto) (2-4) % Baso % (Auto) (0-2) % Neut # (Auto) (7425-4236) /uL Sodium (137-145) mmol/L Potassium (3.4-5.1) mmol/L Chloride (98-107) mmol/L Carbon Dioxide (22-32) mmol/L BUN (9-20) mg/dL Creatinine (0.66-1.25) mg/dL Estimated GFR (>60) mL/min BUN/Creatinine Ratio (6-22) Glucose (80-110) mg/dL Lactate (0.7-2.1) mmol/L Calcium (8.4-10.2) mg/dL Total Bilirubin (0.2-1.3) mg/dL AST (17-59) IU/L ALT (21-72) IU/L Alkaline Phosphatase (38-126) U/L Total Protein (6.3-8.2) g/dL Albumin (3.5-5.0) g/dL Globulin (1.7-4.1) g/dL Albumin/Globulin Ratio (1.0-2.8) Urine Color Yellow Urine Appearance Clear Urine pH 6.5 (4.5-8.0) Ur Specific [place] 1.020 (1.000-1.035) Urine Protein Negative (Negative) Urine Glucose (UA) Negative (Normal) g/dL Urine Ketones Negative (NEGATIVE) Urine Occult Blood Trace-lysed (Negative) Urine Nitrate Negative (Negative) Urine Bilirubin Negative (NEGATIVE) Urine Urobilinogen 0.2 (0.2) E.U./dL Ur Leukocyte Esterase Negative (NEGATIVE) Urine RBC None seen (0-5/HPF) Urine WBC 0-1/hpf (0-5/HPF) Ur Squamous Epith Cells 0-1 /hpf Urine Bacteria None seen (None) Ur Culture Indicated? Cult not indicated Micro UA Comment Not Reportable MDM Narrative Medical decision making narrative: Patient presents stating that his surgeon wanted him to get another blood culture. He denies any symptoms, states he feels pretty well after surgery. He denies fevers nausea vomiting diarrhea any systemic illness. Of note he did have 1 positive blood culture on the . However he had a negative blood culture on the as well as the . I did order a CBC, CMP and lactate. I also ordered a set of blood cultures. His lab work came back within normal limits for the patient. I discussed with him that I will not have the blood culture results for a few days. I discussed follow up with primary care provider as well as a surgeon. Patient no questions or concerns upon discharge and stated he wanted to go home. <Nory Santamaria, - Last Filed: 06/15/18 10:36> Lab Data Lab Results 06/14/18 06/14/18 06/14/18 Range/Units 15:52 15:52 15:52 WBC 9.4 (4.5-11.0) X10^3/uL RBC 4.41 L (4.5-5.9) X10^6/uL Hgb 14.0 (13.5-17.5) g/dL Hct 40.1 L (41-53) % MCV 90.8 (80-100) fL MCH 31.7 (26-34) PG MCHC 34.9 (30-36) % RDW 12.8 (11.6-14.8) % Plt Count 299 (150-400) X10^3/uL Neut % (Auto) 64.2 (50-75) % Lymph % (Auto) 23.4 L (25-40) % [place] % (Auto) 7.9 (3-14) % Eos % (Auto) 3.6 (2-4) % Baso % (Auto) 0.9 (0-2) % Neut # (Auto) 6100 H (8744-5834) /uL Sodium 146 H (137-145) mmol/L Potassium 4.3 (3.4-5.1) mmol/L Chloride 104 (98-107) mmol/L Carbon Dioxide 30 (22-32) mmol/L BUN 18 (9-20) mg/dL Creatinine 1.10 (0.66-1.25) mg/dL Estimated GFR > 60.0 (>60) mL/min BUN/Creatinine Ratio 16.4 (6-22) Glucose 97 (80-110) mg/dL Lactate 1.2 (0.7-2.1) mmol/L Calcium 9.7 (8.4-10.2) mg/dL Total Bilirubin 0.7 (0.2-1.3) mg/dL AST 18 (17-59) IU/L ALT 20 L (21-72) IU/L Alkaline Phosphatase 81 (38-126) U/L Total Protein 7.7 (6.3-8.2) g/dL Albumin 4.3 (3.5-5.0) g/dL Globulin 3.4 (1.7-4.1) g/dL Albumin/Globulin Ratio 1.3 (1.0-2.8) Urine Color Urine Appearance Urine pH (4.5-8.0) Ur Specific [place] (1.000-1.035) Urine Protein (Negative) Urine Glucose (UA) (Normal) g/dL Urine Ketones (NEGATIVE) Urine Occult Blood (Negative) Urine Nitrate (Negative) Urine Bilirubin (NEGATIVE) Urine Urobilinogen (0.2) E.U./dL Ur Leukocyte Esterase (NEGATIVE) Urine RBC (0-5/HPF) Urine WBC (0-5/HPF) Ur Squamous Epith Cells Urine Bacteria (None) Ur Culture Indicated? Micro UA Comment 06/14/18 Range/Units 16:00 WBC (4.5-11.0) X10^3/uL RBC (4.5-5.9) X10^6/uL Hgb (13.5-17.5) g/dL Hct (41-53) % MCV (80-100) fL MCH (26-34) PG MCHC (30-36) % RDW (11.6-14.8) % Plt Count (150-400) X10^3/uL Neut % (Auto) (50-75) % Lymph % (Auto) (25-40) % [place] % (Auto) (3-14) % Eos % (Auto) (2-4) % Baso % (Auto) (0-2) % Neut # (Auto) (5992-2528) /uL Sodium (137-145) mmol/L Potassium (3.4-5.1) mmol/L Chloride (98-107) mmol/L Carbon Dioxide (22-32) mmol/L BUN (9-20) mg/dL Creatinine (0.66-1.25) mg/dL Estimated GFR (>60) mL/min BUN/Creatinine Ratio (6-22) Glucose (80-110) mg/dL Lactate (0.7-2.1) mmol/L Calcium (8.4-10.2) mg/dL Total Bilirubin (0.2-1.3) mg/dL AST (17-59) IU/L ALT (21-72) IU/L Alkaline Phosphatase (38-126) U/L Total Protein (6.3-8.2) g/dL Albumin (3.5-5.0) g/dL Globulin (1.7-4.1) g/dL Albumin/Globulin Ratio (1.0-2.8) Urine Color Yellow Urine Appearance Clear Urine pH 6.5 (4.5-8.0) Ur Specific [place] 1.020 (1.000-1.035) Urine Protein Negative (Negative) Urine Glucose (UA) Negative (Normal) g/dL Urine Ketones Negative (NEGATIVE) Urine Occult Blood Trace-lysed (Negative) Urine Nitrate Negative (Negative) Urine Bilirubin Negative (NEGATIVE) Urine Urobilinogen 0.2 (0.2) E.U./dL Ur Leukocyte Esterase Negative (NEGATIVE) Urine RBC None seen (0-5/HPF) Urine WBC 0-1/hpf (0-5/HPF) Ur Squamous Epith Cells 0-1 /hpf Urine Bacteria None seen (None) Ur Culture Indicated? Cult not indicated Micro UA Comment Not Reportable Discharge Plan Departure Patient Disposition: Home Clinical Impression: Abnormal laboratory test Discharge Date/Time: 06/14/18 16:51 Interventions: ED Discharge Assessment Last Done: 06/14/18 16:50 Instructions: Blood Culture Activity Restrictions/Additional Instructions: Your surgeon sent here to get another blood culture done. I also ordered some basic lab work, which came back with no signs of infection. Your lactate was normal your white blood cell count was normal. Your blood cultures will take a few days to grow. I would like you to follow up with your surgeon. Come back to the emergency department if you have any fever, nausea vomiting diarrhea or signs of infection like last time. Prescriptions: No Action pravastatin [Pravachol] 20 MG tablet 20 mg PO QDAY Qty: 30 RF: 0 amlodipine 5 mg tablet 2 tab PO DAILY RF: 0 rivaroxaban [Xarelto] 20 mg tablet 1 tab PO DAILY RF: 0 senna 2 tab PO BID RF: 0 Referrals: Concepcion Echevarria PA-C [Primary Care Provider] - <Nory Santamaria DO - Last Filed: 06/15/18 10:36> Cosign ED Attending Chiquita Attestation: I was immediately available in the department for consultation. Documentation has been reviewed. I agree with assessment and plan.
[2018-06-14 16:12] LABS: Bacteria Urine None Seen; RBC Urine None Seen (0-5/HPF)
[2018-06-14 16:13] LABS: Add Manual Diff / Slide Review NO; Basophils Percent Auto 0.9 % (0-2); Eosinophils Percent Auto 3.6 % (2-4); Hematocrit 40.1 % (41-53); Lymphocytes Percent Auto 23.4 % (25-40); Mean Corpuscular HGB Conc 34.9 % (30-36); Mean Corpuscular Hemoglobin 31.7 PG (26-34); Mean Corpuscular Volume 90.8 fL (80-100); Monocytes Percent Auto 7.9 % (3-14); Neutrophils Absolute Auto 6100 /uL (3000-5900); Neutrophils Percent Auto 64.2 % (50-75); Platelet Count 299 X10^3/uL (150-400); Red Blood Cell Count 4.41 X10^6/uL (4.5-5.9); Red Cell Distribution Width 12.8 % (11.6-14.8); White Blood Cell Count 9.4 X10^3/uL (4.5-11.0)
[2018-06-14 16:21] LABS: Appearance Urine UA CLEAR; Bilirubin Urine UA NEGATIVE (NEGATIVE); Color Urine UA YELLOW; Glucose Urine UA NEGATIVE (Normal); Ketones Urine UA NEGATIVE (NEGATIVE); Leukocyte Esterase Urine UA NEGATIVE (NEGATIVE); Nitrite Urine UA Negative (Negative); Occult Blood Urine UA TRACE-LYSED (Negative); Protein Urine UA NEGATIVE (Negative); Urobilinogen Urine UA 0.2 E.U./dL (0.2); pH Urine UA 6.5 (4.5-8.0)
[2018-06-14 16:24] LABS: Lactate (Lactic Acid) 1.2 mmol/L (0.7-2.1)
[2018-06-14 16:27] LABS: Alanine Aminotransferase 20 IU/L (21-72); Albumin 4.3 g/dL (3.5-5.0); Albumin Globulin Ratio 1.3 (1.0-2.8); Alkaline Phosphatase 81 U/L (38-126); Aspartate Aminotransferase 18 IU/L (17-59); BUN Creatinine Ratio 16.4 (6-22); Bilirubin Total 0.7 mg/dL (0.2-1.3); Blood Urea Nitrogen 18 mg/dL (9-20); Calcium 9.7 mg/dL (8.4-10.2); Carbon Dioxide 30 mmol/L (22-32); Chloride 104 mmol/L (98-107); Estimated Glomerular Filt Rate > 60.0 mL/min (>60); Globulin 3.4 g/dL (1.7-4.1); Glucose 97 mg/dL (80-110); HEMOLYSIS < 15 (0-50); Potassium 4.3 mmol/L (3.4-5.1); Sodium 146 mmol/L (137-145); Total Protein 7.7 g/dL (6.3-8.2)
[2018-06-14 16:30] LABS: Culture Indicated Urine Cult Not Indicated; Squamous Epithelial Cell Urine 0-1 /HPF; WBC Urine 0-1/HPF (0-5/HPF)
[2018-06-14 16:44] VITALS: BP 156/90; PULSE 76; O2SAT 98
== END 2018-06-14 16:51 | disposition home or self-care (01) ==
PROVIDERS: Emergency Provider Nurse Practitioner Family; Family Provider Physician Assistant; PCP Physician Assistant
DX: R89.9 Unspecified abnormal finding in specimens from other organs, systems and tissues (principal); Z86.19 Personal history of other infectious and parasitic diseases
CPT/HCPCS: 36415; 80053; 81001; 83605; 85025; 87040; 99282; 99283

== ENCOUNTER → 2018-10-02 08:13 | Outpatient (CLI) | payer MEDICARE, SELFPAY ==
[2018-06-01 19:02] VITALS: BMI 30.2
--- NOTE | 2018-10-02 | DI.US.S_ITS ---
PROCEDURE: US PERIPH VENOUS LOW EXTREM BI INDICATIONS: CHRONIC DVT TECHNIQUE: Real-time imaging, as well as color and pulse Doppler interrogation, were performed of the deep veins of both legs from the inguinal ligament to the popliteal fossa. COMPARISON: [facility] Ultrasound, US, US VENOUS LOWER EXTREMITY DOPPLER BILATERAL, 04/24/2018, 13:11. FINDINGS: There is partial thrombus again seen within the mid to distal right superficial femoral vein and the proximal through the distal left superficial femoral and suggesting chronic deep venous thrombosis. The common femoral and popliteal veins are patent. 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 Dictated by: Jeff Tolliver [facility] Interpreted: Jose Miguel Vences MD on 10/02/2018 at 10:57 Approved by: Jose Miguel Vences M.D. on 10/02/2018 at 12:58
== END ==
PROVIDERS: PCP Nurse Practitioner Family; Visit Provider Nurse Practitioner Family
DX: I82.513 Chronic embolism and thrombosis of femoral vein, bilateral (principal)
CPT/HCPCS: 93970

== ENCOUNTER 2019-04-16 07:50 | Outpatient (RCR) | payer MEDICARE, SELFPAY ==
[2018-06-01 19:02] VITALS: BMI 30.2
--- NOTE | 2019-04-16 17:35 | PT.OPPOC ---
Current Diagnoses Pain in left hip (04/16/19) Provider Visit Care Team Role Provider Type DYLAN Felder Attending Provider Non-Staff Primary Care Provider Specialty: Medical Address: [address] [place] [address], [id number] Email: Plan Of Care PT-OP-T Assessment and Plan Start: 04/16/19 15:41 Freq: Status: Active Protocol: Document 04/16/19 15:42 EA (Rec: 04/16/19 15:51 EA [id number]) Physical Therapy Assessment Rehab Potential Rehabilitation Potential Excellent Evaluation Complexity Number of Personal Factors/Comorbidities 0 Impairments Impairments Posture Soft Tissue Mobility Goals Three Impairment Impaired posture Short Term Goal (STG) Patient will understand functional psoture to prevent muscular imbalance STG Duration 3 wks Two Impairment Decreased knowledge about back care and lifting mechanics Short Term Goal (STG) Patient will understand safe lifting and back care. STG Duration 3 wks One Impairment No HEP in place Short Term Goal (STG) Patient will understand safe independent home exercise program STG Duration 3 wks Assessment Summary Assessment Pleasant 78 y/o M patient with current referring diagnosis of left hip and back pain. Pt presented today with no complaint except decreased knowledge how to perform therex exercises to prevent his previous low back issues. No acute distress or discomfort during tests measures. Patient requested to be discharged after initial evaluation as he only wants to know therex and proper lifting mechanics that he can perform at home safely based on his previous complaint. Physical Therapy Plan Frequency and Duration Frequency of Treatment once Duration of Treatment 1 wk Plan of Care Start Date 04/16/19 Plan of Care End Date 04/19/19 Therapeutic Interventions Therapeutic Interventions Patient/Caregiver Education Self-Care/Home Management Therapeutic Exercises Discharge Physical Therapy Discharge Reasons Patient Request Discharge Comments Patient requested to be discharged after initial evaluation as he only wants to know therex that he can perform at home safely based on his previous complaint. Next Visit Focus/Plan Next Note Type Discharge Summary Plan of Care Dates Plan of Care Start Date 04/16/19 Plan of Care End Date 04/19/19 Please Sign and Return: I have reviewed this Plan of Care and certify that the skilled therapy services above are required to meet the patient?s needs. Physician Signature Date Printed Name and Credentials Clinical Instructor Signature Printed Name and Credentials
--- NOTE | 2019-04-16 17:35 | PT.OIE ---
Current Diagnoses Pain in left hip (04/16/19) Past Medical History (This Medical Record has been edited. Action required.) History of nephrectomy, unilateral (Acute) Hyperlipemia (Acute) Hypertension (Acute) Provider Visit Care Team Role Provider Type DYLAN Felder Attending Provider Non-Staff Primary Care Provider Specialty: Medical Address: [address] [place] [address], [id number] Email: Physical Therapy Initial Evaluation PT-OP-A Visit Information Start: 04/16/19 15:41 Freq: Status: Active Protocol: Document 04/16/19 15:42 EA (Rec: 04/16/19 15:51 EA [id number]) Out-Patient Physical Therapy Visit Information Visit Information Visit Type Initial Evaluation Visit Start Time 08:15 Visit Stop Time 09:00 Total Visit Minutes 40 Visit Number 1 Number of DIRECTOR OF MANAGED CARE Visits 0 Evaluation Information Evaluation Date 04/16/19 Precautions Precautions None identified PT-OP-B Current Condition Start: 04/16/19 15:41 Freq: Status: Active Protocol: Document 05/06/19 17:24 EA (Rec: 05/06/19 17:37 EA [id number]) Current Condition History of Current Condition Onset Date 2 months ago Current Complaints L hip pain History of Current Condition Patient reports left hip started after working on his wood tables. He reports went to his doctor few days after the onset as pain did not subside. He denied any significant history that could relate to his left hip complaint. Patient denies any loss of strength and numbness to both LE. He reports by getting active at home he felt that back slowly got better few weeks after. He denied any x-rays or imaging in the past . Prior Treatments and Tests None reported None reported formal treatment Future Testing and Treatments Planned None reported Treatment Goals Patient/Caregiver Goals Patient would like to prevent re-occurence of left hip complaint. Prior Functional Status Baseline Function- ADL's Independent Baseline Function- Mobility Independent Baseline Function- Gait No limitation Baseline Function- Work/School Retired Baseline Function- Recreation/Hobbies Wood art works. Current Functional Impairments (Reported) Functional Limitations- ADL's Indep with no limitation Functional Limitations- Mobility/Gait No limitation Functional Limitations- Work/School Retired Functional Limitations- Recreation/ No limitation and is back to Hobbies his PLOF PT-OP-C Subjective Start: 04/16/19 15:41 Freq: Status: Active Protocol: Document 05/06/19 17:24 EA (Rec: 05/06/19 17:37 EA [id number]) OP-PT Subjective Patient Comments Patient Comments Pt states My pain decreased since I went to the doctor. And that is the reason I am here today is to know exercises to prevent hip pain re- aggravation. Patient Reported Progress Improving Patient Questionnaires Lower Extremity Functional Scale LEFS Score 70 LEFS Impairment 1 to 19% Impaired (Score 63-79 ) PT-OP-F Manual Assessment Start: 04/16/19 15:41 Freq: Status: Active Protocol: Document 05/06/19 17:24 EA (Rec: 05/06/19 17:37 EA [id number]) Manual Assessments Soft Tissue Assessment Soft Tissue Mobility Assessment tight paralumbars, hamstrings, hip flexors, piriformis PT-OP-J Posture/Palpation/Skin Start: 04/16/19 15:41 Freq: Status: Active Protocol: Document 04/16/19 17:30 EA (Rec: 05/07/19 07:33 EA [id number]) Posture Evaluation Comments Posture Comments Increased lumbars lordosis with fwd head and rounded shoulder PT-OP-K Range of Motion Start: 04/16/19 15:41 Freq: Status: Active Protocol: Document 04/16/19 17:30 EA (Rec: 05/07/19 07:33 EA [id number]) Lumbar Spine Range of Motion Lumbar Spine Active Percentage Testing Position Standing Flexion 80 Extension 90 Rotation Left 80 Rotation Right 80 Lateral Flexion Left 85 Lateral Flexion Right 85 ROM Limitations Soft Tissue Tightness PT-OP-L Special Tests Start: 04/16/19 15:41 Freq: Status: Active Protocol: Document 04/16/19 17:30 EA (Rec: 05/07/19 07:33 EA [id number]) Special Tests Lumbar Spine Special Tests Straight Leg Raise Test Results -elizabeth Prone Instability Test Test Results -elizabeth PT-OP-M Strength Start: 04/16/19 15:41 Freq: Status: Active Protocol: Document 05/06/19 17:24 EA (Rec: 05/06/19 17:37 EA [id number]) Hip Strength Hip Manual Muscle Testing Right Reason Not Measured WFL Left Reason Not Measured WFL Knee Strength Knee Manual Muscle Testing Right Reason Not Measured WFL Left Reason Not Measured WFL Ankle/Foot Strength Ankle and Foot Manual Muscle Testing Right Reason Not Measured WFL Left Reason Not Measured WFL PT-OP-Q Treatments Start: 05/07/19 07:34 Freq: Status: Active Protocol: Document 05/07/19 07:34 EA (Rec: 05/07/19 07:37 EA [id number]) Therapeutic Exercises Supine Exercises 2 Supine Exercise Name SKTC Side bilateral Reps/Minutes x 30SH x 2 Comments HEP com 1 Supine Exercise Name Stertch piriformis Side bilateral Reps/Minutes x 30SH x 2 reps Prone Exercises 1 Prone Exercise Name Quadratus Lumborum stretch Side bilateral Reps/Minutes x30SH x 2 Comments HEP comp Sitting Exercises 2 Sitting Exercise Name Lumbar flexor stretch Side bilateral Reps/Minutes x 30SH x 2 Comments HEP comp Self-Care/Home Management Treatment Education Patient Education [employer]ics Home Exercise Program Pain Management Posture PT-OP-T Assessment and Plan Start: 04/16/19 15:41 Freq: Status: Active Protocol: Document 04/16/19 15:42 EA (Rec: 04/16/19 15:51 EA [id number]) Physical Therapy Assessment Rehab Potential Rehabilitation Potential Excellent Evaluation Complexity Number of Personal Factors/Comorbidities 0 Impairments Impairments Posture Soft Tissue Mobility Goals Three Impairment Impaired posture Short Term Goal (STG) Patient will understand functional posture to prevent muscular imbalance STG Duration 3 wks Two Impairment Decreased knowledge about back care and lifting mechanics Short Term Goal (STG) Patient will understand safe lifting and back care. STG Duration 3 wks One Impairment No HEP in place Short Term Goal (STG) Patient will understand safe independent home exercise program STG Duration 3 wks Assessment Summary Assessment Pleasant 78 y/o M patient with current referring diagnosis of left hip and back pain. Pt presented today with no complaint except decreased knowledge how to perform therex exercises to prevent his previous low back issues. No acute distress or discomfort during tests measures. Patient requested to be discharged after initial evaluation as he only wants to know therex and proper lifting mechanics that he can perform at home safely based on his previous complaint. Physical Therapy Plan Frequency and Duration Frequency of Treatment once Duration of Treatment 1 wk Plan of Care Start Date 04/16/19 Plan of Care End Date 04/19/19 Therapeutic Interventions Therapeutic Interventions Patient/Caregiver Education Self-Care/Home Management Therapeutic Exercises Discharge Physical Therapy Discharge Reasons Patient Request Discharge Comments Patient requested to be discharged after initial evaluation as he only wants to know therex that he can perform at home safely based on his previous complaint. Next Visit Focus/Plan Next Note Type Discharge Summary
--- NOTE | 2019-06-10 16:50 | PT.OPDS ---
Current Diagnoses Pain in left hip (04/16/19) Provider Visit Care Team Role Provider Type DYLAN Felder Attending Provider Non-Staff Primary Care Provider Specialty: Medical Address: [address] [place] [address], [facility] Email: Visit Number Visit Number 1 Discharge Summary PT-OP-B Current Condition Start: 04/16/19 15:41 Freq: Status: Active Protocol: Document 05/06/19 17:24 EA (Rec: 05/06/19 17:37 EA [id number]) Current Condition History of Current Condition Onset Date 2 months ago Current Complaints L hip pain History of Current Condition Patient reports left hip started after working on his wood tables. He reports went to his doctor few days after the onset as pain did not subside. He denied any significant history that could relate to his left hip complaint. Patient denies any loss of strength and numbness to both LE. He reports by getting active at home he felt that back slowly got better few weeks after. He denied any x-rays or imaging in the past . Prior Treatments and Tests None reported None reported formal treatment Future Testing and Treatments Planned None reported Treatment Goals Patient/Caregiver Goals Patient would like to prevent re-occurence of left hip complaint. Prior Functional Status Baseline Function- ADL's Independent Baseline Function- Mobility Independent Baseline Function- Gait No limitation Baseline Function- Work/School Retired Baseline Function- Recreation/Hobbies Wood art works. Current Functional Impairments (Reported) Functional Limitations- ADL's Indep with no limitation Functional Limitations- Mobility/Gait No limitation Functional Limitations- Work/School Retired Functional Limitations- Recreation/ No limitation and is back to Hobbies his PLOF PT-OP-C Subjective Start: 04/16/19 15:41 Freq: Status: Active Protocol: Document 05/06/19 17:24 EA (Rec: 05/06/19 17:37 EA [id number]) OP-PT Subjective Patient Comments Patient Comments Pt states My pain decreased since I went to the doctor and ther reason I am here today is to know exercises to prevent hip pain re- aggravation. Patient Reported Progress Improving Patient Questionnaires Lower Extremity Functional Scale LEFS Score 70 LEFS Impairment 1 to 19% Impaired (Score 63-79 ) PT-OP-F Manual Assessment Start: 04/16/19 15:41 Freq: Status: Active Protocol: Document 05/06/19 17:24 EA (Rec: 05/06/19 17:37 EA [id number]) Manual Assessments Soft Tissue Assessment Soft Tissue Mobility Assessment tight paralumbars, hamstrings, hip flexors, piriformis PT-OP-J Posture/Palpation/Skin Start: 04/16/19 15:41 Freq: Status: Active Protocol: Document 04/16/19 17:30 EA (Rec: 05/07/19 07:33 EA [id number]) Posture Evaluation Comments Posture Comments Increased lumbars lordosis with fwd head and rounded shoulder PT-OP-K Range of Motion Start: 04/16/19 15:41 Freq: Status: Active Protocol: Document 04/16/19 17:30 EA (Rec: 05/07/19 07:33 EA [id number]) Lumbar Spine Range of Motion Lumbar Spine Active Percentage Testing Position Standing Flexion 80 Extension 90 Rotation Left 80 Rotation Right 80 Lateral Flexion Left 85 Lateral Flexion Right 85 ROM Limitations Soft Tissue Tightness PT-OP-L Special Tests Start: 04/16/19 15:41 Freq: Status: Active Protocol: Document 04/16/19 17:30 EA (Rec: 05/07/19 07:33 EA [id number]) Special Tests Lumbar Spine Special Tests Straight Leg Raise Test Results -elizabeth Prone Instability Test Test Results -elizabeth PT-OP-M Strength Start: 04/16/19 15:41 Freq: Status: Active Protocol: Document 05/06/19 17:24 EA (Rec: 05/06/19 17:37 EA [id number]) Hip Strength Hip Manual Muscle Testing Right Reason Not Measured WFL Left Reason Not Measured WFL Knee Strength Knee Manual Muscle Testing Right Reason Not Measured WFL Left Reason Not Measured WFL Ankle/Foot Strength Ankle and Foot Manual Muscle Testing Right Reason Not Measured WFL Left Reason Not Measured WFL PT-OP-T Assessment and Plan Start: 04/16/19 15:41 Freq: Status: Active Protocol: Document 04/16/19 15:42 EA (Rec: 04/16/19 15:51 EA [id number]) Physical Therapy Assessment Rehab Potential Rehabilitation Potential Excellent Evaluation Complexity Number of Personal Factors/Comorbidities 0 Impairments Impairments Posture Soft Tissue Mobility Goals Three Impairment Impaired posture Short Term Goal (STG) Patient will understand functional psoture to prevent muscular imbalance STG Duration 3 wks Two Impairment Decreased knowledge about back care and lifting mechanics Short Term Goal (STG) Patient will understand safe lifting and back care. STG Duration 3 wks One Impairment No HEP in place Short Term Goal (STG) Patient will understand safe independent home exercise program STG Duration 3 wks Assessment Summary Assessment Pleasant 78 y/o M patient with current referring diagnosis of left hip and back pain. Pt presented today with no complaint except decreased knowledge how to perform therex exercises to prevent his previous low back issues. No acute distress or discomfort during tests measures. Patient requested to be discharged after initial evaluation as he only wants to know therex and proper lifting mechanics that he can perform at home safely based on his previous complaint. Physical Therapy Plan Frequency and Duration Frequency of Treatment once Duration of Treatment 1 wk Plan of Care Start Date 04/16/19 Plan of Care End Date 04/19/19 Therapeutic Interventions Therapeutic Interventions Patient/Caregiver Education Self-Care/Home Management Therapeutic Exercises Discharge Physical Therapy Discharge Reasons Patient Request Discharge Comments Patient requested to be discharged after initial evaluation as he only wants to know therex that he can perform at home safely based on his previous complaint. Next Visit Focus/Plan Next Note Type Discharge Summary
== END 2019-06-14 09:21 | disposition home or self-care (01) ==
LOC: PHYS 07:50
PROVIDERS: PCP Nurse Practitioner Family; Visit Provider Nurse Practitioner Family
DX: M25.552 Pain in left hip (principal)
CPT/HCPCS: 97110; 97161; 97535

== ENCOUNTER → 2019-10-22 16:04 | Outpatient (ROUT) | payer MEDICARE, SELFPAY ==
[2018-06-01 19:02] VITALS: BMI 30.2
[2019-10-22 16:25] LABS: INR 1.1 (0.9-1.3); Prothrombin Time 12.5 SECONDS (10.1-12.7)
[2019-10-22 16:27] LABS: PTT Partial Thromboplastin Tim 33 SECONDS (26.4-36.2)
== END ==
PROVIDERS: PCP Nurse Practitioner Family; Visit Provider Family Medicine
DX: I82.533 Chronic embolism and thrombosis of popliteal vein, bilateral (principal)
CPT/HCPCS: 85610; 85730

== ENCOUNTER → 2019-10-25 08:57 | Outpatient (ROUT) | payer MEDICARE, SELFPAY ==
[2018-06-01 19:02] VITALS: BMI 30.2
[2019-10-25 10:54] LABS: INR 1.3 (0.9-1.3); Prothrombin Time 15.3 SECONDS (10.1-12.7)
== END ==
PROVIDERS: PCP Nurse Practitioner Family; Visit Provider Family Medicine
DX: I82.533 Chronic embolism and thrombosis of popliteal vein, bilateral (principal)
CPT/HCPCS: 85610

== ENCOUNTER → 2019-10-28 12:09 | Outpatient (ROUT) | payer MEDICARE, SELFPAY ==
[2018-06-01 19:02] VITALS: BMI 30.2
[2019-10-28 12:16] LABS: INR 2.2 (0.9-1.3); Prothrombin Time 25.5 SECONDS (10.1-12.7)
== END ==
PROVIDERS: PCP Nurse Practitioner Family; Visit Provider Internal Medicine
DX: I82.533 Chronic embolism and thrombosis of popliteal vein, bilateral (principal)
CPT/HCPCS: 85610

== ENCOUNTER → 2019-10-31 09:49 | Outpatient (ROUT) | payer MEDICARE, SELFPAY ==
[2018-06-01 19:02] VITALS: BMI 30.2
[2019-10-31 10:52] LABS: Prothrombin Time 23.5 SECONDS (10.1-12.7)
== END ==
PROVIDERS: PCP Nurse Practitioner Family; Visit Provider Internal Medicine
DX: Z79.01 Long term (current) use of anticoagulants (principal)
CPT/HCPCS: 85610

== ENCOUNTER → 2019-11-07 09:17 | Outpatient (ROUT) | payer MEDICARE, SELFPAY ==
[2018-06-01 19:02] VITALS: BMI 30.2
[2019-11-07 09:26] LABS: INR 2.6 (0.9-1.3); Prothrombin Time 29.9 SECONDS (10.1-12.7)
== END ==
PROVIDERS: PCP Nurse Practitioner Family; Visit Provider Internal Medicine
DX: Z79.01 Long term (current) use of anticoagulants (principal)
CPT/HCPCS: 85610

== ENCOUNTER → 2019-11-13 09:22 | Outpatient (ROUT) | payer MEDICARE, SELFPAY ==
[2018-06-01 19:02] VITALS: BMI 30.2
[2019-11-13 09:34] LABS: INR 2.1 (0.9-1.3); Prothrombin Time 24.5 SECONDS (10.1-12.7)
== END ==
PROVIDERS: PCP Nurse Practitioner Family; Visit Provider Internal Medicine
DX: Z79.01 Long term (current) use of anticoagulants (principal)
CPT/HCPCS: 85610

== ENCOUNTER → 2019-11-20 08:55 | Outpatient (ROUT) | payer MEDICARE, SELFPAY ==
[2018-06-01 19:02] VITALS: BMI 30.2
[2019-11-20 09:03] LABS: INR 2.4 (0.9-1.3); Prothrombin Time 27.1 SECONDS (10.1-12.7)
== END ==
PROVIDERS: PCP Nurse Practitioner Family; Visit Provider Internal Medicine
DX: Z79.01 Long term (current) use of anticoagulants (principal)
CPT/HCPCS: 85610

== ENCOUNTER → 2019-11-27 09:14 | Outpatient (ROUT) | payer MEDICARE, SELFPAY ==
[2018-06-01 19:02] VITALS: BMI 30.2
[2019-11-27 09:29] LABS: INR 1.9 (0.9-1.3); Prothrombin Time 21.5 SECONDS (10.1-12.7)
== END ==
PROVIDERS: PCP Nurse Practitioner Family; Visit Provider Internal Medicine
DX: Z79.01 Long term (current) use of anticoagulants (principal)
CPT/HCPCS: 85610

== ENCOUNTER → 2019-12-04 09:24 | Outpatient (ROUT) | payer MEDICARE, SELFPAY ==
[2018-06-01 19:02] VITALS: BMI 30.2
[2019-12-04 09:33] LABS: INR 1.7 (0.9-1.3); Prothrombin Time 19.2 SECONDS (10.1-12.7)
== END ==
PROVIDERS: PCP Nurse Practitioner Family; Visit Provider Internal Medicine
DX: Z79.01 Long term (current) use of anticoagulants (principal)
CPT/HCPCS: 85610

== ENCOUNTER → 2019-12-11 09:45 | Outpatient (ROUT) | payer MEDICARE, SELFPAY ==
[2018-06-01 19:02] VITALS: BMI 30.2
[2019-12-11 09:52] LABS: INR 1.7 (0.9-1.3); Prothrombin Time 19.2 SECONDS (10.1-12.7)
== END ==
PROVIDERS: PCP Nurse Practitioner Family; Visit Provider Internal Medicine
DX: Z79.01 Long term (current) use of anticoagulants (principal)
CPT/HCPCS: 85610

== ENCOUNTER → 2019-12-18 09:09 | Outpatient (ROUT) | payer MEDICARE, SELFPAY ==
[2018-06-01 19:02] VITALS: BMI 30.2
[2019-12-18 09:16] LABS: INR 2.1 (0.9-1.3); Prothrombin Time 23.5 SECONDS (10.1-12.7)
== END ==
PROVIDERS: PCP Nurse Practitioner Family; Visit Provider Internal Medicine
DX: Z79.01 Long term (current) use of anticoagulants (principal)
CPT/HCPCS: 85610

== ENCOUNTER → 2019-12-25 10:02 | Outpatient (ROUT) | payer MEDICARE, SELFPAY ==
[2018-06-01 19:02] VITALS: BMI 30.2
[2019-12-25 10:18] LABS: INR 2.3 (0.9-1.3); Prothrombin Time 26.7 SECONDS (10.1-12.7)
== END ==
PROVIDERS: PCP Nurse Practitioner Family; Visit Provider Internal Medicine
DX: Z79.01 Long term (current) use of anticoagulants (principal)
CPT/HCPCS: 85610

== ENCOUNTER → 2020-02-09 13:30 | Outpatient (CLI) | payer MEDICARE, SELFPAY ==
[2018-06-01 19:02] VITALS: BMI 30.2
[2020-02-10 03:23] LABS: COVID19 Sendout Not Detected (Not Detect)
== END ==
PROVIDERS: PCP Nurse Practitioner Family; Visit Provider Registered Nurse
DX: Z11.9 Encounter for screening for infectious and parasitic diseases, unspecified (principal)
CPT/HCPCS: 87635

== ENCOUNTER → 2020-04-02 09:08 | Outpatient (ROUT) | payer MEDICARE, SELFPAY ==
[2018-06-01 19:02] VITALS: BMI 30.2
[2020-04-02 09:22] LABS: INR 2.3 (0.9-1.3); Prothrombin Time 26.3 SECONDS (10.1-12.7)
== END ==
PROVIDERS: PCP Nurse Practitioner Family; Visit Provider Internal Medicine
DX: Z79.01 Long term (current) use of anticoagulants (principal)
CPT/HCPCS: 85610

== ENCOUNTER → 2020-04-30 09:12 | Outpatient (ROUT) | payer MEDICARE, SELFPAY ==
[2018-06-01 19:02] VITALS: BMI 30.2
[2020-04-30 09:22] LABS: INR 2.1 (0.9-1.3); Prothrombin Time 23.9 SECONDS (10.1-12.7)
== END ==
PROVIDERS: PCP Nurse Practitioner Family; Visit Provider Internal Medicine
DX: Z79.01 Long term (current) use of anticoagulants (principal)
CPT/HCPCS: 85610

== ENCOUNTER 2020-06-01 22:32 | Emergency (ER) | payer MEDICARE, SELFPAY ==
[2018-06-01 19:02] VITALS: BMI 30.2
[2020-06-01 22:33] VITALS: BP 174/85; PULSE 63; RESP 18; TEMP 36.5; O2SAT 97; BMI 33.3
[2020-06-01 22:46] VITALS: PULSE 62; RESP 21; O2SAT 96
--- NOTE | 2020-06-01 22:50 | ED.GENADULT ---
HPI - General Adult General Chief complaint: Abdominal Pain Stated complaint: CHEST PAIN ABD PAIN NAUSEA Time Seen by Provider: 06/01/20 22:33 Source: patient Mode of arrival: Ambulatory Limitations: no limitations History of Present Illness HPI narrative: 79-year-old male here for evaluation of bilateral upper abdominal pain. He states the symptoms started approximately 1-1.5 hours prior to arrival here in the emergency department. He states that was a fairly sudden onset lasted approximately 40 minutes and then completely resolved. During the time of the maximal intensity of pain he did have shortness of breath and some diaphoresis and nausea. All of the symptoms have since resolved. He has never had any symptoms like this in the past. He is currently on Coumadin for distant history of a DVT however no history of pulmonary embolisms. He has been taking his medications as directed. The time my evaluation patient has no symptoms. He came in because this is been happening to him several times over the past couple nights. Related Data Home Medications Medication Instructions Recorded Confirmed warfarin 5 mg tablet 5 mg PO DAILY 05/08/20 05/08/20 Previous Rx's Medication Instructions Recorded pravastatin 20 mg tablet 20 mg PO QDAY #90 tab 05/20/20 Allergies Allergy/AdvReac Type Severity Reaction Status Date / Time No Known Allergies Allergy Verified 05/08/20 14:22 Review of Systems Constitutional Constitutional: Denies fatigue and Denies fever(s) Comments: Diaphoresis Cardiovascular Cardiovascular: Denies chest pain and Reports dyspnea (At the time of the pain) Respiratory Respiratory: Reports dyspnea (At the time of the pain) Gastrointestinal Gastrointestinal: Reports abdominal pain, Denies change in bowel habits, Reports nausea and Denies vomiting Musculoskeletal Musculoskeletal: Denies arthralgias and Denies myalgias Integumentary/Breasts Skin/Breast: Denies lesions and Denies rash Neurologic Neurologic: Denies behavioral changes Psychiatric Psychiatric: Denies behavioral changes Endocrine Endocrine: Denies fatigue Hematologic/Lymphatic Comments: On Coumadin Allergic/Immunologic Allergic/Immunologic: Denies urticaria Patient History Medical History Cardiomyopathy (Chronic) Current use of long term care pharmacist anticoagulation (Chronic) H/O deep venous thrombosis (Chronic) History of nephrectomy, unilateral (Acute) Hyperlipemia (Chronic) Surgical History (Updated 05/08/20 @ 14:46 by Star Blackwell MD) S/p nephrectomy (Acute ~05/2018) Family History (Updated 05/08/20 @ 14:50 by Star Blackwell MD) Mother Cancer Social History household members: spouse Smoking Status: Former smoker alcohol intake: current Smoking Status: Former smoker alcohol intake frequency: 0-2 drinks per day Alcohol type: beer and hard liquor Substance Use Type: marijuana Exam Initial Vital Signs Initial Vital Signs: Vital Signs Temperature 97.7 F 06/01/20 22:33 Pulse Rate 63 06/01/20 22:33 Respiratory Rate 18 06/01/20 22:33 Blood Pressure 174/85 H 06/01/20 22:33 Pulse Oximetry 97 06/01/20 22:33 Const General: cooperative, healthy appearing and comfortable HENMT Head: normal to inspection and normocephalic Resp Effort & Inspection: normal respiratory effort Auscultation: clear to auscultation bilaterally Cardio Rate: regular rate Rhythm: regular rhythm GI Inspection: non-distended Palpation: soft, No firm and No tender Skin Lesions: no lesions Rashes: no rashes Neuro General: patient alert and patient awake Cognition: normal cognition Speech: speech normal Extrem General: normal to inspection and capillary refill normal Psych Appearance: grossly normal and well kempt Scores GCS [place] coma scale eye opening: Spontaneous [place] coma scale verbal response: Orientated [place] coma scale motor response: Obey commands Delores coma scale total score: 15 HEART Score Heart Score history: Slightly Suspicious Heart Score EKG: Normal Heart Score Age: > or = 65 years old Heart Score risk factors: 1-2 risk factors Heart Score troponin: < or = to normal limit Heart Score Total: 3 Course Orders Ordered: ED Orders 06/01/20 22:38 EKG-12 Lead Stat 06/01/20 22:51 XR chest 1V Stat 06/01/20 22:55 Complete Blood Count AUTO DIFF Stat Comprehensive Metabolic Panel Stat Lipase Stat Partial Thromboplastin Time Stat Prothrombin Time INR Stat Troponin I Stat 06/02/20 01:08 Troponin I Stat Vital Signs Vital signs: Vital Signs - 8 hr 06/01/20 22:33 06/01/20 22:46 06/01/20 23:00 Temperature 97.7 F Pulse Rate 63 62 60 Respiratory Rate 18 21 19 Blood Pressure 174/85 H Pulse Oximetry 97 96 96 06/01/20 23:01 06/01/20 23:30 06/02/20 00:00 Temperature Pulse Rate 61 58 L 70 Respiratory Rate 17 16 18 Blood Pressure 128/60 117/61 112/63 Pulse Oximetry 96 94 94 06/02/20 00:30 06/02/20 01:00 06/02/20 01:30 Temperature Pulse Rate 57 L 59 L 56 L Respiratory Rate 14 16 16 Blood Pressure 120/63 118/64 109/62 Pulse Oximetry 95 93 93 Medical Decision Making Lab Data Lab results reviewed: Yes I reviewed the patient's lab results. Result diagrams: 06/01/20 22:55 06/01/20 22:55 Labs: Lab Results 06/01/20 06/01/20 06/01/20 Range/Units 22:55 22:55 22:55 WBC 7.3 (4.5-11.0) X10^3/uL RBC 4.45 L (4.5-5.9) X10^6/uL Hgb 13.9 (13.5-17.5) g/dL Hct 40.6 L (41-53) % MCV 91.2 (80-100) fL MCH 31.3 (26-34) PG MCHC 34.3 (30-36) % RDW 13.2 (11.6-14.8) % Plt Count 188 (150-400) X10^3/uL Neut % (Auto) 63.7 (50-75) % Lymph % (Auto) 23.9 L (25-40) % Bureau % (Auto) 7.3 (3-14) % Eos % (Auto) 4.0 (2-4) % Baso % (Auto) 1.1 (0-2) % Neut # (Auto) 4700 (2911-3575) /uL Lymph # (Auto) 1800 (7327-9441) /uL Bureau # (Auto) 500 (0-900) /uL Eos # (Auto) 300 (0-450) /uL Baso # (Auto) 100 (0-100) /uL PT 23.6 H (10.1-12.7) SECONDS INR 2.1 H (0.9-1.3) APTT 37 H D (26.4-36.2) SECONDS Sodium 137 (137-145) mmol/L Potassium 3.5 (3.4-5.1) mmol/L Chloride 106 (98-107) mmol/L Carbon Dioxide 23 (22-32) mmol/L BUN 20 (9-20) mg/dL Creatinine 1.22 (0.66-1.25) mg/dL Estimated GFR 57.6 L (>60) mL/min BUN/Creatinine Ratio 16.4 (6-22) Glucose 118 H (80-110) mg/dL Calcium 8.8 (8.4-10.2) mg/dL Total Bilirubin 1.3 (0.2-1.3) mg/dL AST 72 H (17-59) IU/L ALT 38 (<50) IU/L Alkaline Phosphatase 69 (38-126) U/L Troponin I < 0.012 (0.01-0.034) ng/mL Total Protein 6.8 (6.3-8.2) g/dL Albumin 3.7 (3.5-5.0) g/dL Globulin 3.1 (1.7-4.1) g/dL Albumin/Globulin Ratio 1.2 (1.0-2.8) Lipase 128 (23-300) U/L 08/18/20 Range/Units 01:08 WBC (4.5-11.0) X10^3/uL RBC (4.5-5.9) X10^6/uL Hgb (13.5-17.5) g/dL Hct (41-53) % MCV (80-100) fL MCH (26-34) PG MCHC (30-36) % RDW (11.6-14.8) % Plt Count (150-400) X10^3/uL Neut % (Auto) (50-75) % Lymph % (Auto) (25-40) % Bureau % (Auto) (3-14) % Eos % (Auto) (2-4) % Baso % (Auto) (0-2) % Neut # (Auto) (9963-7755) /uL Lymph # (Auto) (0821-0714) /uL Bureau # (Auto) (0-900) /uL Eos # (Auto) (0-450) /uL Baso # (Auto) (0-100) /uL PT (10.1-12.7) SECONDS INR (0.9-1.3) APTT (26.4-36.2) SECONDS Sodium (137-145) mmol/L Potassium (3.4-5.1) mmol/L Chloride (98-107) mmol/L Carbon Dioxide (22-32) mmol/L BUN (9-20) mg/dL Creatinine (0.66-1.25) mg/dL Estimated GFR (>60) mL/min BUN/Creatinine Ratio (6-22) Glucose (80-110) mg/dL Calcium (8.4-10.2) mg/dL Total Bilirubin (0.2-1.3) mg/dL AST (17-59) IU/L ALT (<50) IU/L Alkaline Phosphatase (38-126) U/L Troponin I < 0.012 (0.01-0.034) ng/mL Total Protein (6.3-8.2) g/dL Albumin (3.5-5.0) g/dL Globulin (1.7-4.1) g/dL Albumin/Globulin Ratio (1.0-2.8) Lipase (23-300) U/L Imaging Data Chest x-ray: Attestation: I personally reviewed and interpreted this imaging study as follows: My Impression: No acute pathology ECG Data Attestation: I personally reviewed and interpreted this ECG as follows: Prior ECG tracings: not available for review Interpretation: Sinus bradycardia Ventricular rate of 56 First degree AV block with NJ interval 235 milliseconds Normal axis Normal QRS Normal QTC No ST T wave changes MDM Narrative Medical decision making narrative: Patient is asymptomatic at the time my evaluation has been asymptomatic during his time here in the ER. Is a low risk heart score. Troponins negative x2. EKG is unremarkable. Rest of his labs are unremarkable as well. Patient describes symptoms as bilateral upper abdomen. I have low suspicion for ACS. I feel that given his lack of symptoms and his normal exam and is unremarkable labs we can hold on a CT scan for now. Low suspicion for an intra-abdominal surgical pathology given his current presentation. Patient was instructed the need to contact his primary provider for follow-up. He was given return precautions and follow-up instructions. He expressed understanding and agreement. Discharge Plan Departure Patient Disposition: Home Clinical Impression: Atypical chest pain Discharge Date/Time: 06/02/20 01:59 Instructions: DI for Atypical Chest Pain Activity Restrictions/Additional Instructions: Keep all of your scheduled medical appointments. Be sure to talk with your primary doctor at your appointment on Monday about a stress test for further workup of your symptoms. Return to the emergency department for any new or worsening symptoms Prescriptions: No Action pravastatin [Pravachol] 20 mg tablet 20 mg PO QDAY Qty: 90 RF: 1 warfarin 5 mg tablet 5 mg PO DAILY RF: 0 Referrals: Olga Gambino ARNP [Primary Care Provider] -
--- NOTE | 2020-06-01 22:51 | DI.RAD.S_ITS ---
PROCEDURE: XR CHEST 1V INDICATIONS: chest pain TECHNIQUE: One view of the chest was acquired. COMPARISON: [facility], CR, XR CHEST 2V, 06/01/2018, 15:02. FINDINGS: Surgical changes and devices: None. Lungs and pleura: Lungs are clear. No pleural effusions or pneumothorax. Mediastinum: Mediastinal contours appear normal. Heart size is normal. Bones and chest wall: No suspicious bony lesions. Overlying soft tissues appear unremarkable. IMPRESSION: No acute disease. Dictated by: Josué Dacosta M.D. on 06/02/2020 at 8:40 Approved by: Josué Dacosta M.D. on 06/02/2020 at 8:41
[2020-06-01 23:00] VITALS: PULSE 60; RESP 19; O2SAT 96
[2020-06-01 23:01] VITALS: BP 128/60; PULSE 61; RESP 17; O2SAT 96
--- NOTE | 2020-06-01 23:03 | PC.NURSE ---
Patient states abdominal pain started this AM after waking. Reports pain as feels like nerve pain that goes across upper abdomen just below chest. Denies radiation. Denies current chest pain and states resolved, but at time of event reports as a 5/10.
[2020-06-01 23:06] LABS: Add Manual Diff / Slide Review NO; Basophils Absolute Auto 100 /uL (0-100); Basophils Percent Auto 1.1 % (0-2); Eosinophils Absolute Auto 300 /uL (0-450); Hematocrit 40.6 % (41-53); Hemoglobin 13.9 g/dL (13.5-17.5); Lymphocytes Absolute Auto 1800 /uL (1100-4500); Lymphocytes Percent Auto 23.9 % (25-40); Mean Corpuscular HGB Conc 34.3 % (30-36); Mean Corpuscular Hemoglobin 31.3 PG (26-34); Mean Corpuscular Volume 91.2 fL (80-100); Monocytes Absolute Auto 500 /uL (0-900); Monocytes Percent Auto 7.3 % (3-14); Neutrophils Absolute Auto 4700 /uL (1500-7000); Neutrophils Percent Auto 63.7 % (50-75); Platelet Count 188 X10^3/uL (150-400); Red Blood Cell Count 4.45 X10^6/uL (4.5-5.9); Red Cell Distribution Width 13.2 % (11.6-14.8); White Blood Cell Count 7.3 X10^3/uL (4.5-11.0)
[2020-06-01 23:12] LABS: INR 2.1 (0.9-1.3); Prothrombin Time 23.6 SECONDS (10.1-12.7)
[2020-06-01 23:14] LABS: PTT Partial Thromboplastin Tim 37 SECONDS (26.4-36.2)
[2020-06-01 23:16] LABS: Alanine Aminotransferase 38 IU/L (<50); Albumin 3.7 g/dL (3.5-5.0); Albumin Globulin Ratio 1.2 (1.0-2.8); Alkaline Phosphatase 69 U/L (38-126); Aspartate Aminotransferase 72 IU/L (17-59); BUN Creatinine Ratio 16.4 (6-22); Bilirubin Total 1.3 mg/dL (0.2-1.3); Blood Urea Nitrogen 20 mg/dL (9-20); Calcium 8.8 mg/dL (8.4-10.2); Carbon Dioxide 23 mmol/L (22-32); Chloride 106 mmol/L (98-107); Estimated Glomerular Filt Rate 57.6 mL/min (>60); Globulin 3.1 g/dL (1.7-4.1); Glucose 118 mg/dL (80-110); HEMOLYSIS 23 (0-50); Lipase 128 U/L (23-300); Potassium 3.5 mmol/L (3.4-5.1); Sodium 137 mmol/L (137-145); Total Protein 6.8 g/dL (6.3-8.2)
[2020-06-01 23:28] LABS: Troponin I < 0.012 ng/mL (0.01-0.034)
[2020-06-01 23:30] VITALS: BP 117/61; PULSE 58; RESP 16; O2SAT 94
[2020-06-02] VITALS: BP 112/63; PULSE 70; RESP 18; O2SAT 94
[2020-06-02 00:30] VITALS: BP 120/63; PULSE 57; RESP 14; O2SAT 95
[2020-06-02 01:00] VITALS: BP 118/64; PULSE 59; RESP 16; O2SAT 93
[2020-06-02 01:30] VITALS: BP 109/62; PULSE 56; RESP 16; O2SAT 93
[2020-06-02 01:37] LABS: Troponin I < 0.012 ng/mL (0.01-0.034)
== END 2020-06-02 01:59 | disposition home or self-care (01) ==
PROVIDERS: Emergency Provider Emergency Medicine; PCP Nurse Practitioner Family
DX: R07.89 Other chest pain (principal); R11.0 Nausea; R06.00 Dyspnea, unspecified; R00.1 Bradycardia, unspecified; Z86.718 Personal history of other venous thrombosis and embolism; Z79.01 Long term (current) use of anticoagulants
CPT/HCPCS: 36415; 71045; 80053; 83690; 84484; 85025; 85610; 85730; 93005; 93010; 99284

== ENCOUNTER → 2020-07-03 09:58 | Outpatient (CLI) | payer MEDICARE, SELFPAY ==
[2018-06-01 19:02] VITALS: BMI 30.2
[2020-07-03 10:43] LABS: INR 1.6 (0.9-1.3); Prothrombin Time 18.8 SECONDS (10.1-12.7)
[2020-07-06 11:53] LABS: Dilute Russell Viper Venom 39.9 sec (0.0-47.0); Lupus Reflex Interpretation Comment: (.); PTT-LA 36.8 sec (0.0-51.9)
[2020-07-07 01:12] LABS: Cardiolipin Ab IgA <9 APL U/mL (0-11); Cardiolipin Ab IgG <9 GPL U/mL (0-14); Cardiolipin Ab IgM <9 MPL U/mL (0-12)
== END ==
PROVIDERS: PCP Internal Medicine; Referring Provider Internal Medicine; Visit Provider Internal Medicine
DX: I83.91 Asymptomatic varicose veins of right lower extremity (principal); Z86.718 Personal history of other venous thrombosis and embolism; Z79.01 Long term (current) use of anticoagulants
CPT/HCPCS: 36415; 81241; 85598; 85610; 85613; 86147

== ENCOUNTER 2020-07-06 03:34 | Inpatient (IN) | payer MEDICARE, SELFPAY ==
[2018-06-01 19:02] VITALS: BMI 30.2
[2020-07-06] VITALS (12 sets, daily range): BP systolic 139–188; BP diastolic 80–94; PULSE 57–98; RESP 18–20; TEMP 37–38.5; O2SAT 95–97; BMI 33.1; BMI 33.7
--- NOTE | 2020-07-06 | DI.CT.S_ITS ---
PROCEDURE: CT CHEST ABD PEL W CON INDICATIONS: chest/abdominal pain TECHNIQUE: After the administration of oral and intravenous contrast, 5 mm thick sections acquired from the lung apices to the symphysis. 5 mm coronal and sagittal reformats were performed, with additional 7 mm coronal MIP reformats through the lungs. For radiation dose reduction, the following was used: automated exposure control, adjustment of mA and/or kV according to patient size. COMPARISON: [facility], CT, CT ABDOMEN PELVIS W CON, 06/01/2018, 15:58. FINDINGS: Image quality: Excellent. CHEST: Lungs and pleura: There is left apical scarring. Scattered scarring/atelectasis in periphery of bilateral lung aragon are seen. Mild centrilobular emphysema is also noted. 4 millimeter calcified granuloma is noted in anterolateral aspect of right upper lobe series 3, image 127. 3 millimeter solid nodule is seen in anterolateral aspect of left upper lobe series 3, image 149. Dependent atelectasis/scarring in periphery of bilateral lower lobes are also seen. 3 millimeter solid nodule is seen in posterior aspect of left lower lobe series 3, image 188. No acute airspace opacities. No pleural effusions or pneumothorax. Central and peripheral airways appear patent and normal in caliber. Mediastinum: Heart size is mildly enlarged. No pericardial effusion. Moderate amount of atherosclerotic calcifications are seen. No mediastinal or hilar adenopathy by size criteria. There is ascending thoracic aortic aneurysm measures up to 4.5 centimeters in AP diameter near aortic root and up to 4.2 centimeters in largest AP diameter in the aortic arch. Descending thoracic aorta is normal in size. Pulmonary artery is normal in size.. Esophagus is normal in caliber. No hiatal hernia. Chest wall: No axillary or supraclavicular adenopathy by size criteria. Thyroid gland is within normal limits. ABDOMEN: Solid organs: Liver is normal in size . A few well-circumscribed hypodensities are again seen scattered in right and left hepatic lobes unchanged in size and appearance from prior study and likely represent hepatic cysts. Gallbladder contains a small calcified stone in its dependent portion. No gallbladder wall thickening or pericholecystic fluid. Biliary system is non dilated. Pancreas enhances normally. Spleen is normal in size and enhancement. No adrenal nodules. Left kidney is surgically absent. Surgical clips are noted in left renal fossa. Right kidney is normal in size and show normal enhancement. No renal stone or hydronephrosis. Peritoneum and bowel: There is no bowel obstruction. No gross abnormal gastric or small bowel wall thickening. Extensive sigmoid diverticulosis is seen. Mild pericolonic fat stranding involving proximal to mid sigmoid colon is noted, early diverticulitis cannot be entirely excluded. There is no abscess collection. No free fluid or free air. Nodes and vessels: No retroperitoneal or mesenteric adenopathy by size criteria. Aorta and inferior vena cava are normal in size. Moderate atherosclerotic calcifications are seen. Miscellaneous: No ventral hernias. PELVIS: Genitourinary: Bladder wall thickness is normal. Miscellaneous: No inguinal hernias or adenopathy. Bones: No suspicious bony lesions. No vertebral body compression fractures. Degenerative disc disease throughout thoracic and lumbar spine is seen. IMPRESSION: 1. Extensive sigmoid diverticulosis. Questionable mild mesenteric fat stranding adjacent to proximal to mid sigmoid colon, early diverticulitis cannot be excluded. There is no abscess collection. No free fluid or free air. No evidence of bowel obstruction. 2. Stable appearing hypodensities seen in liver parenchyma suggestive of hepatic cysts. 3. Prior left nephrectomy. Right kidney show no renal stone or hydronephrosis. 4. Cholelithiasis, no CT evidence of acute cholecystitis. 5. Scattered scarring/atelectasis in bilateral lung aragon. Mild centrilobular emphysema. No pleural effusion or pneumothorax. Airway is patent. 6. Tiny calcified and solid nodule seen in bilateral lung aragon as described above and measures up to 4 millimeters in size. If clinically indicated, a follow-up CT study in 12 months can be done for evaluation of stability. 7. Ascending thoracic aortic aneurysm measures up to 4.5 centimeters in largest AP diameter. Moderate amount of atherosclerotic calcification. Dictated by: Jose Miguel Vences M.D. on 07/06/2020 at 17:57 Approved by: Jose Miguel Vences M.D. on 07/06/2020 at 18:23
--- NOTE | 2020-07-06 03:40 | DI.RAD.S_ITS ---
PROCEDURE: XR CHEST 1V INDICATIONS: Chest pain TECHNIQUE: One view of the chest was acquired. COMPARISON: [facility], CR, XR CHEST 1V, 06/01/2020, 22:55. FINDINGS: Surgical changes and devices: None. Lungs and pleura: Lungs are clear. No pleural effusions or pneumothorax. Mediastinum: Mediastinal contours appear normal. Heart size is normal. Bones and chest wall: No suspicious bony lesions. Overlying soft tissues appear unremarkable. IMPRESSION: No acute cardiopulmonary disease process. Dictated by: Leilani Davies MD, PhD on 07/06/2020 at 8:49 Approved by: Leilani Davies MD, PhD on 07/06/2020 at 8:52
--- NOTE | 2020-07-06 03:43 | ED_ITS ---
HPI - Chest Pain General Chief Complaint: Chest Pain Stated Complaint: CP/SOB Time Seen by Provider: 07/06/20 03:47 Source: patient, family, EMS and old records reviewed Mode of arrival: EMS History of Present Illness HPI narrative: Patient brought in by ambulance from home. Nauseated around midnight tonight. 2:30 a.m. got up to go the bathroom and on way back to bed field pressure pain substernally and upper epigastric area. Nonradiating. Filled dyspnea with nausea. Short of breath as well. No back pain. No numbness tingling or weakness. It was 04/24. Currently 10/25. No nitro given by EMS. Given aspirin and Zofran. Patient seen here 4 weeks ago for the same. Discharged home. Patient has never had stress test in the past. Does have history of DVT and is on warfarin. No prior history of pulmonary embolism. Feeling better at this time. Last time he took ED med was 3 days ago. MD complaint: chest pain Related Data Home Medications Medication Instructions Recorded Confirmed warfarin 5 mg tablet 5 mg PO DAILY 05/08/20 07/03/20 Previous Rx's Medication Instructions Recorded pravastatin 20 mg tablet 20 mg PO QDAY #90 tab 05/20/20 sildenafil 100 mg tablet 50 - 100 mg PO DAILY PRN #2 tab 07/03/20 Allergies Allergy/AdvReac Type Severity Reaction Status Date / Time No Known Allergies Allergy Verified 07/03/20 09:17 Review of Systems Review of Systems Narrative: GENERAL: Denies chills, fatigue, malaise, fever, sweats. HEENT: Denies sinus pain, ear pain, sore throat, difficulty swallowing, dizziness. RESPIRATORY: Complains of dyspnea, denies cough, wheezing, hemoptysis, sputum. CARDIOVASCULAR: Complains of chest pain, denies palpitations, orthopnea, edema, GASTROINTESTINAL: Complains of nausea, denies vomiting, abdominal pain, diarrhea, constipation, melena. : Denies dysuria, frequency, incontinence, hematuria, urinary retention. MUSCULOSKELETAL: denies weakness, joint pain, or bony pain SKIN: Denies rash, skin lesions NEUROLOGIC: Denies weakness, headache, numbness, change in speech, confusion, seizures, incoordination. PSYCHIATRIC: No concerning psychosocial issues. ROS Unobtainable: All systems reviewed & are unremarkable except as noted in HPI and below Patient History Medical History Cardiomyopathy (Chronic) Current use of snf anticoagulation (Chronic) Erectile dysfunction (Chronic) H/O deep venous thrombosis (Chronic) Hyperlipemia (Chronic) Surgical History Anesthesia (Resolved) History of nephrectomy, unilateral (Acute 05/17/18) Family History Mother Cancer Social History household members: spouse Smoking Status: Former smoker alcohol intake: current Smoking Status: Former smoker alcohol intake frequency: 0-2 drinks per day Alcohol type: beer and hard liquor Substance Use Type: marijuana Exam Narrative Exam Narrative: GENERAL: patient appears stated age. Well-nourished, well- developed patient, in no distress, not toxic HEAD: Atraumatic. Normocephalic. EYES: Pupils equal round and reactive. Extraocular motions intact. No scleral icterus. No injection or drainage. ENT: Nose without bleeding, purulent drainage. Throat without erythema, tonsillar hypertrophy or exudate. Airway patent. NECK: Trachea midline. Non tender CARDIOVASCULAR: Regular rate and rhythm without murmurs, gallops, or rubs. RESPIRATORY: Clear to auscultation. Breath sounds equal bilaterally. No wheezes, rales, or rhonchi. GASTROINTESTINAL: Abdomen soft, non-tender, nondistended. EXTREMITIES: No edema or joint tenderness. BACK: Nontender without deformity or crepitance. No flank tenderness. NEURO: AOx4. SKIN: No rash or erythema of visible areas PSYCH: Not anxious, is cooperative Initial Vital Signs Initial Vital Signs: Vital Signs Temperature 98.6 F 07/06/20 03:43 Pulse Rate 57 L 07/06/20 03:43 Respiratory Rate 18 07/06/20 03:43 Blood Pressure 188/90 H 07/06/20 03:43 Pulse Oximetry 97 07/06/20 03:43 Course Course Course Narrative: Second visit here than 30 days for chest pain. Last time discharged home. No return of chest pain during course of stay here Decision to Admit Date: 07/06/20 Decision to Admit time: 04:40 Orders Ordered: ED Orders 07/06/20 03:37 EKG-12 Lead Stat 07/06/20 03:40 XR chest 1V Stat 07/06/20 03:53 Complete Blood Count AUTO DIFF Stat Comprehensive Metabolic Panel Stat D Dimer Stat Lipase Stat Partial Thromboplastin Time Stat Prothrombin Time INR Stat Troponin & CK Cardiac Panel Stat Acetaminophen (Tylenol) 650 mg PO Q6HR PRN PRN Reason: Fever/Mild Pain (1-3) Ondansetron HCl (Zofran) 4 mg IV Q4HR PRN PRN Reason: Nausea And Vomiting Sodium Chloride (Normal Saline 0.9% Flush) 10 ml IV PRN PRN PRN Reason: Flush Sodium Chloride (Normal Saline 0.9% Flush) 10 ml IV BID MARIE Discontinued Medications Aspirin (Aspirin Chew) 324 mg PO NOW ONE Stop: 07/06/20 03:40 Last Admin: 07/06/20 04:02 Dose: Not Given Documented by: DAKOTA Reevaluation(s) Reevaluation #1: Blood pressure improved to 146/71. Chest pain free Consultations Consultation #1: Spoke with Dr. Morrison, oncall pcp...will admit Time: 05:02 Vital Signs Vital signs: Vital Signs - 8 hr 07/06/20 03:43 Temperature 98.6 F Pulse Rate 57 L Respiratory Rate 18 Blood Pressure 188/90 H Pulse Oximetry 97 MDM - Chest Pain Differential Diagnosis Differential diagnosis: Likely unstable angina pectoris, atypical chest pain and chest pain Medical Records Data Attestation: I reviewed the patient's medical records. Lab Data Attestation: I reviewed the patient's lab results. Result diagrams: 07/06/20 03:53 07/06/20 03:53 Labs: Lab Results 07/06/20 07/06/20 07/06/20 Range/Units 03:53 03:53 03:53 WBC 6.6 (4.5-11.0) X10^3/uL RBC 4.47 L (4.5-5.9) X10^6/uL Hgb 13.8 (13.5-17.5) g/dL Hct 41.0 (41-53) % MCV 91.7 (80-100) fL MCH 30.8 (26-34) PG MCHC 33.6 (30-36) % RDW 13.0 (11.6-14.8) % Plt Count 180 (150-400) X10^3/uL Neut % (Auto) 60.7 (50-75) % Lymph % (Auto) 29.0 (25-40) % [place] % (Auto) 6.2 (3-14) % Eos % (Auto) 3.1 (2-4) % Baso % (Auto) 1.0 (0-2) % Neut # (Auto) 4000 (6880-3740) /uL Lymph # (Auto) 1900 (2982-3528) /uL [place] # (Auto) 400 (0-900) /uL Eos # (Auto) 200 (0-450) /uL Baso # (Auto) 100 (0-100) /uL PT (10.1-12.7) SECONDS INR (0.9-1.3) APTT (26.4-36.2) SECONDS D-Dimer < 200 (<230) ng/mL Sodium 140 (137-145) mmol/L Potassium 4.3 (3.4-5.1) mmol/L Chloride 106 (98-107) mmol/L Carbon Dioxide 29 (22-32) mmol/L BUN 18 (9-20) mg/dL Creatinine 1.14 (0.66-1.25) mg/dL Estimated GFR > 60.0 (>60) mL/min BUN/Creatinine Ratio 15.8 (6-22) Glucose 143 H (80-110) mg/dL Calcium 8.8 (8.4-10.2) mg/dL Total Bilirubin 1.0 (0.2-1.3) mg/dL AST 132 H (17-59) IU/L ALT 53 H (<50) IU/L Alkaline Phosphatase 75 (38-126) U/L Total Creatine Kinase 75 (55-170) U/L CK-MB (CK-2) TNP CK-MB (CK-2) Rel Index TNP Troponin I < 0.012 (0.01-0.034) ng/mL Total Protein 6.6 (6.3-8.2) g/dL Albumin 3.6 (3.5-5.0) g/dL Globulin 3.0 (1.7-4.1) g/dL Albumin/Globulin Ratio 1.2 (1.0-2.8) Lipase 183 (23-300) U/L 07/06/20 Range/Units 03:53 WBC (4.5-11.0) X10^3/uL RBC (4.5-5.9) X10^6/uL Hgb (13.5-17.5) g/dL Hct (41-53) % MCV (80-100) fL MCH (26-34) PG MCHC (30-36) % RDW (11.6-14.8) % Plt Count (150-400) X10^3/uL Neut % (Auto) (50-75) % Lymph % (Auto) (25-40) % [place] % (Auto) (3-14) % Eos % (Auto) (2-4) % Baso % (Auto) (0-2) % Neut # (Auto) (4698-6873) /uL Lymph # (Auto) (2474-0360) /uL [place] # (Auto) (0-900) /uL Eos # (Auto) (0-450) /uL Baso # (Auto) (0-100) /uL PT 18.3 H (10.1-12.7) SECONDS INR 1.6 H (0.9-1.3) APTT 33 D (26.4-36.2) SECONDS D-Dimer (<230) ng/mL Sodium (137-145) mmol/L Potassium (3.4-5.1) mmol/L Chloride (98-107) mmol/L Carbon Dioxide (22-32) mmol/L BUN (9-20) mg/dL Creatinine (0.66-1.25) mg/dL Estimated GFR (>60) mL/min BUN/Creatinine Ratio (6-22) Glucose (80-110) mg/dL Calcium (8.4-10.2) mg/dL Total Bilirubin (0.2-1.3) mg/dL AST (17-59) IU/L ALT (<50) IU/L Alkaline Phosphatase (38-126) U/L Total Creatine Kinase (55-170) U/L CK-MB (CK-2) CK-MB (CK-2) Rel Index Troponin I (0.01-0.034) ng/mL Total Protein (6.3-8.2) g/dL Albumin (3.5-5.0) g/dL Globulin (1.7-4.1) g/dL Albumin/Globulin Ratio (1.0-2.8) Lipase (23-300) U/L Imaging Data Chest x-ray: Attestation: I personally reviewed and interpreted this imaging study as follows: My Impression: No acute process ECG Data Attestation: I personally reviewed and interpreted this ECG as follows: Interpretation: Sinus bradycardia, first-degree AV block. Rate 56, no ST elevation or depression MDM Narrative Medical decision making narrative: No previous stress test in the past. Second visit in 30 days for chest pain. Appropriate for admission hospital for stress test Discharge Plan Departure Patient Disposition: Admitted as Observation Clinical Impression: Chest pain Qualifiers: Chest pain type: unspecified Qualified Code(s): R07.9 - Chest pain, unspecified Discharge Date/Time: 07/06/20 05:20 Referrals: Star Blackwell MD [Primary Care Provider] - Admit Date/Time: 07/06/20 05:01 Admit Provider: Davide Morrison
[2020-07-06 04:02] LABS: Add Manual Diff / Slide Review NO; Basophils Absolute Auto 100 /uL (0-100); Eosinophils Absolute Auto 200 /uL (0-450); Eosinophils Percent Auto 3.1 % (2-4); Hemoglobin 13.8 g/dL (13.5-17.5); Lymphocytes Absolute Auto 1900 /uL (1100-4500); Mean Corpuscular HGB Conc 33.6 % (30-36); Mean Corpuscular Hemoglobin 30.8 PG (26-34); Mean Corpuscular Volume 91.7 fL (80-100); Monocytes Absolute Auto 400 /uL (0-900); Monocytes Percent Auto 6.2 % (3-14); Neutrophils Absolute Auto 4000 /uL (1500-7000); Neutrophils Percent Auto 60.7 % (50-75); Platelet Count 180 X10^3/uL (150-400); Red Blood Cell Count 4.47 X10^6/uL (4.5-5.9); White Blood Cell Count 6.6 X10^3/uL (4.5-11.0)
[2020-07-06 04:09] LABS: INR 1.6 (0.9-1.3); Prothrombin Time 18.3 SECONDS (10.1-12.7)
[2020-07-06 04:11] LABS: PTT Partial Thromboplastin Tim 33 SECONDS (26.4-36.2)
[2020-07-06 04:13] LABS: Alanine Aminotransferase 53 IU/L (<50); Albumin 3.6 g/dL (3.5-5.0); Albumin Globulin Ratio 1.2 (1.0-2.8); Alkaline Phosphatase 75 U/L (38-126); Aspartate Aminotransferase 132 IU/L (17-59); BUN Creatinine Ratio 15.8 (6-22); Blood Urea Nitrogen 18 mg/dL (9-20); Calcium 8.8 mg/dL (8.4-10.2); Carbon Dioxide 29 mmol/L (22-32); Chloride 106 mmol/L (98-107); Creatine Kinase 75 U/L (55-170); Estimated Glomerular Filt Rate > 60.0 mL/min (>60); Glucose 143 mg/dL (80-110); HEMOLYSIS 24 (0-50); Lipase 183 U/L (23-300); Potassium 4.3 mmol/L (3.4-5.1); Sodium 140 mmol/L (137-145); Total Protein 6.6 g/dL (6.3-8.2)
[2020-07-06 04:22] LABS: D Dimer < 200 ng/mL (<230)
[2020-07-06 04:25] LABS: Troponin I < 0.012 ng/mL (0.01-0.034)
[2020-07-06 06:06] LABS: COVID19 -Nasal RAPID Negative (Negative)
--- NOTE | 2020-07-06 06:39 | PC.NURSE ---
Patient and both state patient wishes to be a full code.
--- NOTE | 2020-07-06 08:30 | P.HP_ITS ---
History of Present Illness History of Present Illness Date Patient Seen: 07/06/20 Time Patient Seen: 08:30 Chief complaint: CP/SOB Narrative: 79-year-old who was a new patient to me in May to presented to the hospital with nausea and chest discomfort Patient went to bed last evening with some nausea present. He gets nausea intermittently and has been doing so for several months now. He had a little something to eat to see if that was settle his stomach. Did manage to go to sleep at that particular difficulty. Awoke in the patient escort hours to empty his bladder as he usually does and discovered he had this discomfort of a squeezing sense across his chest. It is located between the nipples and just feels like there is a tightening there. Makes uncomfortable to take a deep breath. Nausea was still present but not necessarily any worse. Not really short of breath other than the exacerbation of his symptoms with deep breathing. No symptoms in neck jaw or arm. Patient had a similar episode to this was seen in the ER here in early May (cuco araya his 1st appointment with me). 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 I actually saw the patient in the clinic on the 03 of July patient reported he was feeling much better. Stress and anxiety clearly are component of his presentation as noted in my outpatient notes in May and on July 03. Patient with a distant history (2014) of a DVT continues on anticoagulation for same (evaluation underway for hypercoagulable state otherwise plan is to discontinue warfarin). He is a bit subtherapeutic on his warfarin with an INR 1.6. 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) Erectile dysfunction (Chronic) H/O deep venous thrombosis (Chronic) Hyperlipemia (Chronic) Surgical History Anesthesia (Resolved) History of nephrectomy, unilateral (Acute 05/17/18) Family & Social History Family History Mother Cancer Social History: household members spouse Prior Living Arrangements Apartment/Condo Safety & Behavioral: Feels Safe in Current Yes Environment Been Physically Hurt or No Threatened By a Person Suicidal Ideation Description None Suicide Plan Description No Plan Tobacco & Substance use: Tobacco type cigarettes Smoking Status Former smoker alcohol intake current alcohol intake frequency 0-2 drinks per day Substance Use Type marijuana Meds Home Medications and Allergies Home Medications Medication Instructions Recorded Confirmed Type warfarin 5 mg tablet 5 mg PO DAILY 05/08/20 07/03/20 History pravastatin 20 mg tablet 20 mg PO QDAY #90 tab 05/20/20 07/03/20 Rx sildenafil 100 mg tablet 50 - 100 mg PO DAILY PRN #2 tab 07/03/20 07/03/20 Rx Allergies Allergy/AdvReac Type Severity Reaction Status Date / Time No Known Allergies Allergy Verified 07/03/20 09:17 Review of Systems Review of Systems ROS: Yes All systems reviewed with the patient and are negative except as otherwise documented Exam Vital Signs (past 8 hours): - 07/06/20 03:43 Temperature 98.6 F Pulse Rate 57 L Respiratory Rate 18 Blood Pressure 188/90 H Pulse Oximetry 97 Oxygen Delivery Method Room Air Narrative Exam Narrative: Elderly male in no obvious distress lying in his hospital bed HEENT-unremarkable, normocephalic atraumatic Neck-no lymphadenopathy no bruits Lungs-clear anteriorly and posteriorly no wheezes no crackles good breath sounds Heart-regular rate and rhythm, no murmur, rub, or gallop. normal S1-S2 Abdomen-positive bowel tones, soft, nontender, nondistended, no hepatosplenomegaly, no masses palpable Neuro-normal to screening exam, gait not tested Extremities-no cyanosis clubbing or edema Objective ECG Impression: Could not locate 12 lead ECG for review (no entry for this patient in the cardio banquet server on call for the date of service), but per ER physician note no acute changes Labs Result Diagrams: 07/06/20 03:53 07/06/20 03:53 Labs: Laboratory Results - last 24 hr 07/06/20 07/06/20 07/06/20 03:53 03:53 03:53 WBC 6.6 RBC 4.47 L Hgb 13.8 Hct 41.0 MCV 91.7 MCH 30.8 MCHC 33.6 RDW 13.0 Plt Count 180 Neut % (Auto) 60.7 Lymph % (Auto) 29.0 [place] % (Auto) 6.2 Eos % (Auto) 3.1 Baso % (Auto) 1.0 Neut # (Auto) 4000 Lymph # (Auto) 1900 [place] # (Auto) 400 Eos # (Auto) 200 Baso # (Auto) 100 PT INR APTT D-Dimer < 200 Sodium 140 Potassium 4.3 Chloride 106 Carbon Dioxide 29 BUN 18 Creatinine 1.14 Estimated GFR > 60.0 BUN/Creatinine Ratio 15.8 Glucose 143 H Calcium 8.8 Total Bilirubin 1.0 AST 132 H ALT 53 H Alkaline Phosphatase 75 Total Creatine Kinase 75 CK-MB (CK-2) TNP CK-MB (CK-2) Rel Index TNP Troponin I < 0.012 Total Protein 6.6 Albumin 3.6 Globulin 3.0 Albumin/Globulin Ratio 1.2 Lipase 183 COVID-19 PCR 07/06/20 07/06/20 03:53 05:16 WBC RBC Hgb Hct MCV MCH MCHC RDW Plt Count Neut % (Auto) Lymph % (Auto) [place] % (Auto) Eos % (Auto) Baso % (Auto) Neut # (Auto) Lymph # (Auto) [place] # (Auto) Eos # (Auto) Baso # (Auto) PT 18.3 H INR 1.6 H APTT 33 D D-Dimer Sodium Potassium Chloride Carbon Dioxide BUN Creatinine Estimated GFR BUN/Creatinine Ratio Glucose Calcium Total Bilirubin AST ALT Alkaline Phosphatase Total Creatine Kinase CK-MB (CK-2) CK-MB (CK-2) Rel Index Troponin I Total Protein Albumin Globulin Albumin/Globulin Ratio Lipase COVID-19 PCR Negative Assessment & Plan Assessment & Plan narrative: 1. Chest pain-patient's chest pain is atypical and certainly there is a high level of stress here. Patient had pain for approximately an hour maybe slightly LEs with no ECG changes and negative troponin. Seems unlikely to me this will be ischemic this certainly deserves further evaluation To that and he would require a Cardiolite stress test. If entirely normal he can be discharged later today. If need be he can be kept and rest portion can be performed tomorrow hopefully. We will work to get this scheduled today. 2. This history DVT with continued anticoagulation-continue warfarin for now. His dose was slightly increased after results were obtained on the . Continue without increased dose which is 7.5 mg Monday and 5 mg the other days of the week. 3. VTE prophylaxis-patient already anticoagulated warfarin will continue with SCDs as well 4. Code status-patient should be full code in the event of a sudden cardiac arrest. Quality VTE Deep Vein Thrombosis/Pulmonary Embolism Present on Admission: Yes
[2020-07-06] MEDS: SODIUM CHLORIDE 0.9% FLUSH 10 ML IV ×3 (09:12→19:53)
[2020-07-06] MEDS: ACETAMINOPHEN 325 MG TABLET 650 MG PO ×2 (12:20→23:54)
[2020-07-06 15:34] LABS: Troponin I < 0.012 ng/mL (0.01-0.034)
--- NOTE | 2020-07-06 15:38 | PC.NURSE ---
Fever: Patient spiked a fever mid-day and reported I just don't feel right. Reported nausea also, and did not feel comfortable going down for stress test. Denied chest pain/pressure/palpitations or SOB. STAT EKG obtained. Vitals measured. Given Tylenol for fever, implemented other cooling measures (ice pack, fan) with temp trending downward improving. Dr Blackwell aware of developments and came up to see patient at lunch hour. Second part of stress test cancelled for now, new order for CT abdomen, patient drinking oral contrast at this time (NPO otherwise until after CT). Call light within reach, bed alarm on.
--- NOTE | 2020-07-06 16:18 | PC.NURSE ---
Evening note: Jasmeet in room dozing, awakes easily to voice. Ox3 & situation. He has finished drinking the oral contrast, now awaiting tech to take him for abdomen CT scan. He ambulated to BR to void, gait steady. visiting at bedside, asking when will they take him? I told her that I expected CT to come get him in the next 1/2 hour or so but if it was any longer than that I would call down to CT department to inquire eta. They deny other needs/concerns.
--- NOTE | 2020-07-06 16:55 | CM.DANOTE ---
DCP/Assessment: Reviewed chart. Patient is a 79yr old male admitted to [facility] with chest pain. PCP is Dr. Blackwell. Primary payor is 1)Medicare 2)[facility]. Met briefly with patient this afternoon explained CM/SW role. Patient reports that he has had bad nausea today. Patient does not anticipate any d/c planning needs. Spoke briefly to Dr. Blackwell and he confirms that patient will likely go home once w/u complete and nausea resolved. P: Home when stable. BHARATHI Everett Discharge Planning/Care Management Advanced directive, confirm from FAMILY Start: 07/06/20 05:49 Freq: Q24H Status: Active Protocol: Document 07/06/20 05:49 DL (Rec: 07/06/20 06:10 DL [id number]) Advance Directive, confirm on record Time 06:00 Person contacted Copy received No CM Discharge Assessment Start: 07/06/20 16:52 Freq: Status: Active Protocol: Document 07/06/20 16:52 KJS (Rec: 07/06/20 16:55 KJS [id number]) Discharge Planning Assessment Assigned Ethics Instructor BHARATHI Everett Contact Information Smita Mathis ([phone]) spouse Advance Directives? Yes Advance Directives on File No History Provided By Patient,Medical Record Prior Living Arrangements Apartment/Condo Household Members spouse Type of transporation used prior to Drives own vehicle admit Willing to Return to Facility? Yes Independent with ADL's Yes Is patient alert and oriented? Yes Caregiver for Another No Barriers to Discharge No Comment Per provider there are not anticipated d/c planning needs as of now. Discharge Plan Home Transportation Arrangement Spouse Whiteboard Updated in Patient Room with Yes name and ext. # of Ethics Instructor Review Status In Process Next Review Type Continued Stay Review
[2020-07-06] MEDS: WARFARIN 5 MG TABLET 7.5 MG PO (18:26)
[2020-07-06] MEDS: polyethylene glycoL 3350 17 GM POWD.PACK PO (19:53)
[2020-07-06] MEDS: PRAVASTATIN 20 MG TABLET PO (19:53)
[2020-07-07] VITALS (10 sets, daily range): BP systolic 138–169; BP diastolic 69–96; PULSE 82–98; RESP 16–18; TEMP 36.8–38.2; O2SAT 95–97
--- NOTE | 2020-07-07 00:25 | PC.NURSE ---
NOC NOTE: Pt with temp of 101.3 at start of shift and given APAP 650 mg.
[2020-07-07 05:30] LABS: Add Manual Diff / Slide Review NO; Basophils Absolute Auto 100 /uL (0-100); Basophils Percent Auto 0.6 % (0-2); Eosinophils Absolute Auto 100 /uL (0-450); Eosinophils Percent Auto 1.4 % (2-4); Hematocrit 42.1 % (41-53); Hemoglobin 14.7 g/dL (13.5-17.5); Lymphocytes Absolute Auto 700 /uL (1100-4500); Lymphocytes Percent Auto 7.5 % (25-40); Mean Corpuscular HGB Conc 34.9 % (30-36); Mean Corpuscular Volume 91.6 fL (80-100); Monocytes Absolute Auto 900 /uL (0-900); Monocytes Percent Auto 8.6 % (3-14); Neutrophils Absolute Auto 8200 /uL (1500-7000); Neutrophils Percent Auto 81.9 % (50-75); Platelet Count 153 X10^3/uL (150-400); Red Blood Cell Count 4.59 X10^6/uL (4.5-5.9); Red Cell Distribution Width 13.4 % (11.6-14.8)
[2020-07-07 05:47] LABS: Alanine Aminotransferase 310 IU/L (<50); Albumin 3.7 g/dL (3.5-5.0); Albumin Globulin Ratio 1.2 (1.0-2.8); Alkaline Phosphatase 133 U/L (38-126); Aspartate Aminotransferase 205 IU/L (17-59); BUN Creatinine Ratio 11.3 (6-22); Bilirubin Total 5.5 mg/dL (0.2-1.3); Blood Urea Nitrogen 13 mg/dL (9-20); Calcium 8.8 mg/dL (8.4-10.2); Carbon Dioxide 26 mmol/L (22-32); Chloride 104 mmol/L (98-107); Estimated Glomerular Filt Rate > 60.0 mL/min (>60); Globulin 3.2 g/dL (1.7-4.1); Glucose 126 mg/dL (80-110); HEMOLYSIS < 15 (0-50); Potassium 4.3 mmol/L (3.4-5.1); Sodium 137 mmol/L (137-145); Total Protein 6.9 g/dL (6.3-8.2)
--- NOTE | 2020-07-07 07:18 | DI.US.S_ITS ---
PROCEDURE: US ABDOMEN COMPLETE INDICATIONS: ABNORMAL LIVER FUNCTION TESTS. TECHNIQUE: Real-time scanning was performed of the abdominal and retroperitoneal organs, with image documentation. COMPARISON: [facility], US, ABDOMEN COMPLETE, 12/28/2009, 8:04. [facility], CT, CT CHEST ABD PEL W CON, 07/06/2020, 17:35. FINDINGS: Liver: The liver demonstrates prominent size. The liver demonstrates generalized increased echogenicity. This decreases ultrasound sensitivity for detection of hepatic masses. Gallbladder: No findings of gallstones or sludge are seen. The gallbladder wall is not thickened, measuring 3 mm or less. No specific pericholecystic fluid is seen. The sonographic Curtis sign is negative. Biliary ducts: Not seen. Pancreas: Not well seen. Spleen: Spleen is normal in size and homogeneous in echotexture. Kidneys: The right left kidney has been removed. The right kidney measures normal size at 10.9 cm. No hydronephrosis, solid masses, or shadowing stones are seen. Aorta: Visualized aorta is normal in caliber at less than 3 cm. Iliacs: Not seen. IVC: Not seen, obscured by overlying bowel gas. Miscellaneous: No free abdominal fluid. This study is limited by body habitus. This study is further limited by bowel gas. IMPRESSION: Enlarged, fatty liver. Status post left nephrectomy. Limited study, without good visualization of several structures. Dictated by: Moris Casarez M.D. on 07/07/2020 at 10:08 Approved by: Moris Casarez M.D. on 07/07/2020 at 10:10
--- NOTE | 2020-07-07 07:24 | PM.PN.1 ---
Subjective Subjective Date Patient Seen: 07/07/20 Time Patient Seen: 07:24 Interval history: Patient had repeat fever overnight. Still has this persistent nauseated sense but no other symptoms. No chest pain. Has noticed that his urine is become very dark he thought was blood but upon further reflection is probably bilirubin. No abdominal pain whatsoever certainly no lower abdominal pain. His description of his nausea and other vague symptoms really are focused in the lower chest upper abdomen. Exam Vital Signs (past 8 hours): - 07/06/20 23:54 07/07/20 00:22 07/07/20 00:42 Temperature 101.3 F H 100.8 F H Pulse Oximetry 95 07/07/20 01:19 07/07/20 01:55 Temperature 100.8 F H 99.6 F Pulse Oximetry Oxygen Delivery Method Room Air Oxygen Flow Rate 0 Narrative Exam Narrative: Elderly male lying in his hospital bed not obviously distress HEENT unremarkable Lungs-clear Heart-regular rate and rhythm Abdomen-positive bowel tones soft nontender nondistended no hepatosplenomegaly no mass palpable. Objective Labs Result Diagrams: 07/07/20 05:10 07/07/20 05:10 Labs: Laboratory Results - last 24 hr 07/06/20 07/07/20 07/07/20 15:00 05:10 05:10 WBC 10.0 D RBC 4.59 Hgb 14.7 Hct 42.1 MCV 91.6 MCH 32.0 MCHC 34.9 RDW 13.4 Plt Count 153 Neut % (Auto) 81.9 H D Lymph % (Auto) 7.5 L D [place] % (Auto) 8.6 Eos % (Auto) 1.4 L Baso % (Auto) 0.6 Neut # (Auto) 8200 H Lymph # (Auto) 700 L [place] # (Auto) 900 Eos # (Auto) 100 Baso # (Auto) 100 Sodium 137 Potassium 4.3 Chloride 104 Carbon Dioxide 26 BUN 13 Creatinine 1.15 Estimated GFR > 60.0 BUN/Creatinine Ratio 11.3 Glucose 126 H Calcium 8.8 Total Bilirubin 5.5 H AST 205 H ALT 310 H Alkaline Phosphatase 133 H D Troponin I < 0.012 Total Protein 6.9 Albumin 3.7 Globulin 3.2 Albumin/Globulin Ratio 1.2 Assessment & Plan Assessment & Plan narrative: 1. Abdominal/chest pain-I now believe this is a noncardiac source of pain given the abnormalities in his labs in the progression of symptoms. Therefore I am going to fully cancel his stress myocardial perfusion imaging. However now with elevated bilirubin elevated alk-phos elevated LFTs I believe there is something with the biliary system causing his symptoms. CT scan failed to reveal evidence of acute cholecystitis or other activity. I am going to obtain ultrasound today consider HIDA scan verses MRCP for further evaluation depending on outcome of ultrasound. His abnormal LFTs are certainly not consistent with an acute viral hepatitis given that they are only marginally elevated. However his bilirubin is much more significant elevated to me suggesting more significant obstruction of biliary tract as above will probably depending on outcome of ultrasound obtain MRCP This point I am not giving him antibiotic therapy. Blood cultures have been drawn, will await results, however if indeed become positive than would be more likely to initiate antibiotic therapy 2. Chronic anticoagulation-patient's INR a bit subtherapeutic. Plan to continue with warfarin for now at patient's usual (which is slightly increased) doses. Plan to recheck protime tomorrow. Quality VTE Deep Vein Thrombosis/Pulmonary Embolism Present on Admission: Yes
[2020-07-07] MEDS: SODIUM CHLORIDE 0.9% FLUSH 10 ML IV ×2 (11:23→20:56)
[2020-07-07] MEDS: ACETAMINOPHEN 325 MG TABLET 650 MG PO ×2 (11:30→20:54)
[2020-07-07] MEDS: polyethylene glycoL 3350 17 GM POWD.PACK PO (11:36)
--- NOTE | 2020-07-07 11:52 | DI.MRI.S_ITS ---
PROCEDURE: MR ABDOMEN WO CON INDICATIONS: elevated lfts TECHNIQUE: Coronal HASTE through the abdomen, axial 2-D FLASH in- and [id number], and breath-hold T2 FSE with fat saturation through the biliary system and pancreas. Oblique coronal and axial thin-slice HASTE, radial thick-slab HASTE centered on the extrahepatic bile ducts. COMPARISON: [facility], US, US ABDOMEN COMPLETE, 07/07/2020, 10:41. [facility], CT, CT CHEST ABD PEL W CON, 07/06/2020, 17:35. FINDINGS: Image quality: There is motion artifact limiting evaluation. Pancreas and biliary system: Multiple dependent filling defects are demonstrated within the gallbladder consistent with gallstones. No wall thickening or pericholecystic fluid. There is borderline intra and extrahepatic biliary ductal dilatation, with the common bile duct measuring 6-7 mm. There is a filling defect within the distal common bile duct measuring up to 10 x 3 mm consistent with a common duct stone or clustered stones. No pancreatic duct dilatation. No peripancreatic fat stranding or fluid collections. Other solid organs: Multiple small cysts are demonstrated throughout the liver. Spleen is normal in size. No adrenal nodules. The left kidney is surgically absent. Right kidney demonstrates no hydronephrosis. Nodes and vessels: No retroperitoneal or mesenteric adenopathy by size criteria. Aorta and inferior vena cava are normal in size. Bowel and peritoneum: Visualized bowel loops are normal in caliber. No free fluid. Lung bases: No basal pleural effusions. Heart size is normal. Bones and soft tissues: No ventral hernias. Bone marrow is of normal overall signal. IMPRESSION: 1. Filling defect in the distal common bile duct consistent with choledocholithiasis. 2. Borderline intra and extrahepatic biliary ductal dilatation. 3. Cholelithiasis without evidence of acute cholecystitis. Dictated by: Shady Wang M.D. on 07/07/2020 at 16:13 Approved by: Shady Wang M.D. on 07/07/2020 at 16:20
[2020-07-07] MEDS: PIPERACILLIN-TAZO 3.375 GM/50 ML FROZ.PIGGY IV (18:26)
[2020-07-07] MEDS: PRAVASTATIN 20 MG TABLET PO (20:54)
[2020-07-08] VITALS (11 sets, daily range): BP systolic 115–148; BP diastolic 56–89; PULSE 77–91; RESP 16–20; TEMP 37.2–38.6; O2SAT 94–96
[2020-07-08] MEDS: DEXTROSE 5%-0.45NS W/KCL 20MEQ 1,000 ML 80 MEQ IV ×2 (00:03→13:52)
[2020-07-08] MEDS: PIPERACILLIN-TAZO 3.375 GM/50 ML FROZ.PIGGY IV ×4 (00:04→18:37)
[2020-07-08] MEDS: ACETAMINOPHEN 325 MG TABLET 650 MG PO ×2 (04:45→21:16)
[2020-07-08 05:19] LABS: INR 1.7 (0.9-1.3); Prothrombin Time 19.4 SECONDS (10.1-12.7)
[2020-07-08 05:26] LABS: Alanine Aminotransferase 193 IU/L (<50); Albumin 3.5 g/dL (3.5-5.0); Albumin Globulin Ratio 1.1 (1.0-2.8); Alkaline Phosphatase 133 U/L (38-126); Aspartate Aminotransferase 74 IU/L (17-59); BUN Creatinine Ratio 9.5 (6-22); Bilirubin Total 4.1 mg/dL (0.2-1.3); Blood Urea Nitrogen 11 mg/dL (9-20); Calcium 8.6 mg/dL (8.4-10.2); Carbon Dioxide 25 mmol/L (22-32); Chloride 103 mmol/L (98-107); Estimated Glomerular Filt Rate > 60.0 mL/min (>60); Globulin 3.3 g/dL (1.7-4.1); Glucose 141 mg/dL (80-110); HEMOLYSIS < 15 (0-50); Potassium 4.1 mmol/L (3.4-5.1); Sodium 134 mmol/L (137-145); Total Protein 6.8 g/dL (6.3-8.2)
[2020-07-08] MEDS: PHYTONADIONE (VIT K1) 5 MG TABLET 10 MG PO (08:26)
[2020-07-08] MEDS: SODIUM CHLORIDE 0.9% FLUSH 10 ML IV ×2 (08:28→21:17)
--- NOTE | 2020-07-08 09:07 | PM.DS.1 ---
History of Present Illness History of Present Illness Chief complaint: CP/SOB Narrative: 79-year-old who was a new patient to me in May to presented to the hospital with nausea and chest discomfort Patient went to bed last evening with some nausea present. He gets nausea intermittently and has been doing so for several months now. He had a little something to eat to see if that was settle his stomach. Did manage to go to sleep at that particular difficulty. Awoke in the upper inspector hours to empty his bladder as he usually does and discovered he had this discomfort of a squeezing sense across his chest. It is located between the nipples and just feels like there is a tightening there. Makes uncomfortable to take a deep breath. Nausea was still present but not necessarily any worse. Not really short of breath other than the exacerbation of his symptoms with deep breathing. No symptoms in neck jaw or arm. Patient had a similar episode to this was seen in the ER here in early May (before his 1st appointment with me). 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 I actually saw the patient in the clinic on the 03 of July patient reported he was feeling much better. Stress and anxiety clearly are component of his presentation as noted in my outpatient notes in May and on July 03. Patient with a distant history (2014) of a DVT continues on anticoagulation for same (evaluation underway for hypercoagulable state otherwise plan is to discontinue warfarin). He is a bit subtherapeutic on his warfarin with an INR 1.6. Discharge Providers Provider Date of admission: 07/07/20 17:33 Discharge Date: 07/09/20 Primary care physician: Star Blackwell MD Discharge provider: Star Blackwell MD Summary Hospital Course Discharge Diagnosis: 1. Choledocholithiasis with impacted stone at distal common bile duct 2. Probable cholangitis 3. History cardiomyopathy with ejection fraction 40% 2009 (no follow-up since) 4. History DVT 2014, still on anticoagulation upon admission, stopped at discharge Hospital Course: Patient was admitted to the hospital by the emergency department after presenting twice in less than a month with the onset of nausea associated with some chest/abdominal symptoms. Initial intent was to rule him out for a cardiac source of pain with a cardiac stress test. Patient underwent initial resting portion of myocardial perfusion imaging stress test then developed much more significant nausea fever to 102+ and feeling generally ill. The stress portion of his perfusion imaging was canceled or postponed. Patient underwent CT scan of the abdomen which was essentially unremarkable (extensive diverticulosis, and questionable diverticulitis which does not fit clinical picture). Patient persist with intermittent fever. Repeat laboratory examination showed new rise in bilirubin to 5.0 with abnormalities and his LFTs and alk phosphatase which were not present upon admission. Patient also clearly noted the bilirubin in his urine. Abdominal ultrasound was unremarkable although very poor quality imaging due to patient's body habitus and retained gas. MRCP was obtained would seem to show evidence of a retained stone in the distal common bile duct as well as borderline inter and extrahepatic biliary ductal dilatation. Patient was started on IV antibiotics given these findings over concerns for cholangitis and plan was for him to obtain ERCP. However patient is chronic anticoagulated and that will need to managed prior to actual procedure being performed. Vitamin K was given and as of this morning his INR is normal. In addition his bilirubin and LFTs are much improved. I would assume there is some element of a ball valve like function going on with the distal common bile duct stone. Patient still needs ERCP for stone retrieval and probably sphincterotomy to ensure passage of any other retained material. Patient persisted with intermittent fever period was really mildly symptomatic otherwise with only some nausea and some vague upper abdominal lower chest symptoms Patient with past history of DVT in 2014 is been maintained on chronic anticoagulation ever since. Patient is relatively new to this facility and upon review of prior records there is no evidence of prior workup for hypercoagulable state. This was initiated prior to this hospitalization and thus far all testing has failed to reveal any etiology for hypercoagulable state. Of course certain testing cannot be performed while patient is taking warfarin. Plan was to have his chronic anticoagulation discontinued unless there was some evidence of a hypercoagulable state which now appears NOT to be present. His warfarin was held in anticipation of his need for an ERCP and should not be reinstated when patient is discharged. He was also given vitamin K orally in effort to reverse his anticoagulation. His INR on the morning of July 08 was 1.7. Status at Discharge Cognitive/behavioral status at discharge: oriented Functional status at discharge: independent ambulation Overall status at discharge: other (Needs further treatment at outside facility) Time Spent with Patient Time spent: Greater than 30 minutes Exam Vital Signs (past 8 hours): - 07/08/20 04:30 07/08/20 04:45 07/08/20 08:00 Temperature 101.5 F H 101.5 F H 99.3 F Pulse Rate 90 78 Respiratory Rate 18 16 Blood Pressure 115/56 L 138/85 Pulse Oximetry 94 95 Oxygen Delivery Method Room Air Oxygen Flow Rate 0 Narrative Exam Narrative: Elderly male in no obvious distress lying in hospital bed HEENT-unremarkable Lungs-clear Heart-regular rate and rhythm Abdomen-positive bowel tones nontender nondistended obesity limits exam however Extremities-no cyanosis clubbing or edema Objective Imaging MRI - abdomen: Radiologist's impression: FINDINGS: Image quality: There is motion artifact limiting evaluation. Pancreas and biliary system: Multiple dependent filling defects are demonstrated within the gallbladder consistent with gallstones. No wall thickening or pericholecystic fluid. There is borderline intra and extrahepatic biliary ductal dilatation, with the common bile duct measuring 6-7 mm. There is a filling defect within the distal common bile duct measuring up to 10 x 3 mm consistent with a common duct stone or clustered stones. No pancreatic duct dilatation. No peripancreatic fat stranding or fluid collections. Other solid organs: Multiple small cysts are demonstrated throughout the liver. Spleen is normal in size. No adrenal nodules. The left kidney is surgically absent. Right kidney demonstrates no hydronephrosis. Nodes and vessels: No retroperitoneal or mesenteric adenopathy by size criteria. Aorta and inferior vena cava are normal in size. Bowel and peritoneum: Visualized bowel loops are normal in caliber. No free fluid. Lung bases: No basal pleural effusions. Heart size is normal. Bones and soft tissues: No ventral hernias. Bone marrow is of normal overall signal. IMPRESSION: 1. Filling defect in the distal common bile duct consistent with choledocholithiasis. 2. Borderline intra and extrahepatic biliary ductal dilatation. 3. Cholelithiasis without evidence of acute cholecystitis. Labs Result Diagrams: 07/09/20 04:22 07/09/20 04:22 Labs: Laboratory Results - last 24 hr 07/08/20 07/08/20 05:03 05:03 PT 19.4 H INR 1.7 H Sodium 134 L Potassium 4.1 Chloride 103 Carbon Dioxide 25 BUN 11 Creatinine 1.16 Estimated GFR > 60.0 BUN/Creatinine Ratio 9.5 Glucose 141 H Calcium 8.6 Total Bilirubin 4.1 H AST 74 H ALT 193 H Alkaline Phosphatase 133 H Total Protein 6.8 Albumin 3.5 Globulin 3.3 Albumin/Globulin Ratio 1.1 Discharge Assessment & Plan Assessment and Plan Assessment: Choledocholithiasis and possible cholangitis Plan of Treatment: Patient will continue on IV antibiotics and will need transfer to outside facility for ERCP. Do not believe his symptoms were cardiac at any point. Troponins were negative. Will not anticipate continuing on with cardiac workup/evaluation. In addition patient likely does not need long-term anticoagulation and warfarin can be discontinued. Plan to complete hypercoagulable workup once patient is off warfarin Discharge Plan Discharge Plan Patient Disposition: [facility] Hospital Discharge orders & Medications Follow up/Referrals: Star Blackwell MD [Primary Care Provider] - Discharge Health Status Multidrug resistant organism: No MDRO Precautions: [place] Diet/Activity/Treatments Diet: Nothing by Mouth Discharge Data Primary Care Provider: Star Blackwell Quality VTE Deep Vein Thrombosis/Pulmonary Embolism Present on Admission: Yes
--- NOTE | 2020-07-08 14:56 | PC.NURSE ---
Pt is resting comfortably at present. Denies CP/epigastric pain. IVF infusing. Remains NPO, awaiting transfer for ERCP to [facility]. Oral care items provided. Update to . 1500 Pt still NPO, call into Dr Blackwell to see about diet order.
[2020-07-08] MEDS: ONDANSETRON 4 MG/2 ML INJ IV (21:16)
[2020-07-08] MEDS: PRAVASTATIN 20 MG TABLET PO (21:17)
[2020-07-09] MEDS: PIPERACILLIN-TAZO 3.375 GM/50 ML FROZ.PIGGY IV ×4 (00:27→18:37)
[2020-07-09] MEDS: DEXTROSE 5%-0.45NS W/KCL 20MEQ 1,000 ML 80 MEQ IV ×2 (02:45→18:40)
[2020-07-09 05:16] LABS: Add Manual Diff / Slide Review NO; Basophils Absolute Auto 0 /uL (0-100); Basophils Percent Auto 0.5 % (0-2); Eosinophils Absolute Auto 100 /uL (0-450); Eosinophils Percent Auto 2.3 % (2-4); Hematocrit 41.5 % (41-53); Hemoglobin 14.1 g/dL (13.5-17.5); INR 1.2 (0.9-1.3); Lymphocytes Absolute Auto 800 /uL (1100-4500); Lymphocytes Percent Auto 13.3 % (25-40); Mean Corpuscular HGB Conc 34.1 % (30-36); Mean Corpuscular Hemoglobin 31.6 PG (26-34); Mean Corpuscular Volume 92.8 fL (80-100); Monocytes Absolute Auto 800 /uL (0-900); Monocytes Percent Auto 14.2 % (3-14); Neutrophils Absolute Auto 4200 /uL (1500-7000); Neutrophils Percent Auto 69.7 % (50-75); Platelet Count 130 X10^3/uL (150-400); Prothrombin Time 13.5 SECONDS (10.1-12.7); Red Blood Cell Count 4.47 X10^6/uL (4.5-5.9); Red Cell Distribution Width 13.1 % (11.6-14.8)
[2020-07-09 05:23] LABS: Alanine Aminotransferase 128 IU/L (<50); Albumin 3.3 g/dL (3.5-5.0); Alkaline Phosphatase 108 U/L (38-126); Aspartate Aminotransferase 45 IU/L (17-59); Bilirubin Total 1.9 mg/dL (0.2-1.3); Blood Urea Nitrogen 13 mg/dL (9-20); Calcium 8.6 mg/dL (8.4-10.2); Carbon Dioxide 27 mmol/L (22-32); Chloride 105 mmol/L (98-107); Estimated Glomerular Filt Rate 53.5 mL/min (>60); Globulin 3.3 g/dL (1.7-4.1); Glucose 129 mg/dL (80-110); HEMOLYSIS < 15 (0-50); Potassium 4.4 mmol/L (3.4-5.1); Sodium 137 mmol/L (137-145); Total Protein 6.6 g/dL (6.3-8.2)
[2020-07-09 07:55] VITALS: BP 131/94; PULSE 77; RESP 18; TEMP 37.2; O2SAT 94
[2020-07-09 07:57] VITALS: O2SAT 94
--- NOTE | 2020-07-09 08:15 | PM.PN.1 ---
Subjective Subjective Date Patient Seen: 07/08/20 Time Patient Seen: 09:15 Interval history: patient remains relatively asymptomatic. Discussed with him findings on MRCP of a retained stone in his common bile duct that is likely causing all of his symptoms and certainly causing his jaundice. He has noticed that his urine is changed color he thought was blood but it is clearly bilirubin Nausea has been present but much more controlled Has persisted with fever intermittently Exam Vital Signs (past 8 hours): - 07/09/20 07:55 07/09/20 07:57 Temperature 99 F Pulse Rate 77 Respiratory Rate 18 Blood Pressure 131/94 H Pulse Oximetry 94 94 Oxygen Delivery Method Room Air Oxygen Flow Rate 0 Narrative Exam Narrative: Unchanged from previous Objective Labs Result Diagrams: 07/09/20 04:22 07/09/20 04:22 Labs: Laboratory Results - last 24 hr 07/09/20 07/09/20 07/09/20 04:22 04:22 04:22 WBC 6.0 RBC 4.47 L Hgb 14.1 Hct 41.5 MCV 92.8 MCH 31.6 MCHC 34.1 RDW 13.1 Plt Count 130 L Neut % (Auto) 69.7 Lymph % (Auto) 13.[address] [place] % (Auto) 14.2 H Eos % (Auto) 2.3 Baso % (Auto) 0.5 Neut # (Auto) 4200 Lymph # (Auto) [address] [facility] [facility] # (Auto) 800 Eos # (Auto) 100 Baso # (Auto) 0 PT 13.5 H D INR 1.2 Sodium 137 Potassium 4.4 Chloride 105 Carbon Dioxide 27 BUN 13 Creatinine 1.30 H Estimated GFR 53.5 L BUN/Creatinine Ratio 10.0 Glucose 129 H Calcium 8.6 Total Bilirubin 1.9 H AST 45 ALT 128 H Alkaline Phosphatase 108 Total Protein 6.6 Albumin 3.3 L Globulin 3.3 Albumin/Globulin Ratio 1.0 Assessment & Plan Assessment & Plan narrative: patient with fever nausea and abdominal symptoms now with elevated bilirubin and evidence of choledocholithiasis in obstruction of the common bile duct distally. Will need ERCP. Work is in progress to transfer him to a tertiary care hospital that can perform ERCP since we can not do that here. He has had antibiotic therapy initiated given the persistent fever and evidence of obstruction as above. Will give vitamin K in effort to reverse his warfarin. Thus far his workup for a hypercoagulable state has been negative and I do not believe he would benefit from additional long-term anticoagulation therapy at this point. Plan to continue him off warfarin indefinitely although will complete his hypercoag workup once he is off warfarin. Note: Greater than 30 minutes was spent evaluating the patient on the floor, including examining the patient, discussing clinical course with clinical and nursing staff, reviewing clinical course in the computer, preparing documentation and writing orders for continued management of care, discussing status with family as appropriate, reviewing plans for the next 24 hours with both patient/family and nursing staff as appropriate. Quality VTE Deep Vein Thrombosis/Pulmonary Embolism Present on Admission: Yes
--- NOTE | 2020-07-09 09:17 | PC.NURSE ---
Addendum entered by Cassia Álvarez R.N. 07/09/20 14:52: Patient up ambulating in [facility], denies pain. Addendum entered by Cassia Álvarez R.N. 07/09/20 14:18: Per Dr Blackwell, continue clear liquid diet at this time. Original Note: Patient alert, oriented denies pain and nausea. Tolerated clears without difficulty, will be NPO after breakfast in anticipation of transfer to [facility]. Patient showered.
[2020-07-09 15:15] VITALS: BP 142/82; PULSE 69; RESP 18; TEMP 37.2; O2SAT 96
--- NOTE | 2020-07-09 16:45 | PM.PN.1 ---
Subjective Subjective Date Patient Seen: 07/09/20 Time Patient Seen: 08:09 Interval history: patient remains in the hospital as it was no bed availability at the outside facility ([facility] never) Remains really quite asymptomatic. Reports his urine has cleared up. Exam Vital Signs (past 8 hours): - 07/09/20 15:15 Temperature 99.0 F Pulse Rate 69 Respiratory Rate 18 Blood Pressure 142/82 H Pulse Oximetry 96 Oxygen Delivery Method Room Air Oxygen Flow Rate 0 Objective Labs Result Diagrams: 07/09/20 04:22 07/09/20 04:22 Labs: Laboratory Results - last 24 hr 07/09/20 07/09/20 07/09/20 04:22 04:22 04:22 WBC 6.0 RBC 4.47 L Hgb 14.1 Hct 41.5 MCV 92.8 MCH 31.6 MCHC 34.1 RDW 13.1 Plt Count 130 L Neut % (Auto) 69.7 Lymph % (Auto) 13.3 L [place] % (Auto) 14.2 H Eos % (Auto) 2.3 Baso % (Auto) 0.5 Neut # (Auto) 4200 Lymph # (Auto) 800 L [place] # (Auto) 800 Eos # (Auto) 100 Baso # (Auto) 0 PT 13.5 H D INR 1.2 Sodium 137 Potassium 4.4 Chloride 105 Carbon Dioxide 27 BUN 13 Creatinine 1.30 H Estimated GFR 53.5 L BUN/Creatinine Ratio 10.0 Glucose 129 H Calcium 8.6 Total Bilirubin 1.9 H AST 45 ALT 128 H Alkaline Phosphatase 108 Total Protein 6.6 Albumin 3.3 L Globulin 3.3 Albumin/Globulin Ratio 1.0 Assessment & Plan Assessment & Plan narrative: Patient's labs are improved with decrease in bilirubin and decrease in LFTs. That explains why his urine appears more clear to him. INR is now normalize Patient continues to have low-grade fever intermittently. Continues on IV antibiotics. At this point planning to transfer him to outside facility for ERCP when bed becomes available. This is not urgent as he is Clinically stable. Note: Greater than 30 minutes was spent evaluating the patient on the floor, including examining the patient, discussing clinical course with clinical and nursing staff, reviewing clinical course in the computer, preparing documentation and writing orders for continued management of care, discussing status with family as appropriate, reviewing plans for the next 24 hours with both patient/family and nursing staff as appropriate. Quality VTE Deep Vein Thrombosis/Pulmonary Embolism Present on Admission: Yes
[2020-07-09 19:48] VITALS: PULSE 70; RESP 14; O2SAT 96
[2020-07-09] MEDS: PRAVASTATIN 20 MG TABLET PO (20:56)
[2020-07-09 23:20] VITALS: BP 145/87; PULSE 68; RESP 14; TEMP 37.4; O2SAT 95
[2020-07-09 23:40] VITALS: O2SAT 95
[2020-07-10] MEDS: PIPERACILLIN-TAZO 3.375 GM/50 ML FROZ.PIGGY IV ×2 (00:28→06:25)
[2020-07-10 08:00] VITALS: BP 133/85; PULSE 64; RESP 20; TEMP 36.9; O2SAT 94
--- NOTE | 2020-07-10 08:03 | PM.PN.1 ---
Subjective Subjective Date Patient Seen: 07/10/20 Time Patient Seen: 08:03 Interval history: Patient is still here because of lack of bed availability at outside hospital. Remains minimally symptomatic only some mild nausea and constipation He has been afebrile now for greater than 24 hours Continues on clear liquids only as we anticipate need for ERCP as soon as we can find an accepting facility Exam Vital Signs (past 8 hours): Oxygen Delivery Method Room Air Oxygen Flow Rate 0 Objective Labs Result Diagrams: 07/09/20 04:22 07/09/20 04:22 Assessment & Plan Assessment & Plan narrative: Continue with IV fluids and clear liquids. We as of today are going to expand search for an accepting facility with ability to do ERCP. Patient may well have either passed his stone or it has become less obstructive, but he clearly will need to have his common bile duct cleared by ERCP at some point. I am hesitant to send him home as I would only further delay the inevitable procedure that he clearly needs, in my opinion. Hopefully we can find him at outside hospital either in [facility] or perhaps [place] In the meantime continue current course without change. Note: Greater than 20 minutes was spent evaluating the patient on the floor, including examining the patient, discussing clinical course with clinical and nursing staff, reviewing clinical course in the computer, preparing documentation and writing orders for continued management of care, discussing status with family as appropriate, reviewing plans for the next 24 hours with both patient/family and nursing staff as appropriate. Quality VTE Deep Vein Thrombosis/Pulmonary Embolism Present on Admission: Yes
--- NOTE | 2020-07-10 09:47 | CM.DPC ---
Addendum entered by Monserrat Mathis 07/10/20 12:48: Transfer to [facility]. KJS Original Note: DCP/continued: Reviewed chart. Per charge authorizer/Kitty, provider is attempting to transfer to higher level of care today. P: Anticipate transfer. BHARATHI Everett
[2020-07-10] MEDS: SODIUM CHLORIDE 0.9% FLUSH 10 ML IV (10:12)
[2020-07-10] MEDS: DEXTROSE 5%-0.45NS W/KCL 20MEQ 1,000 ML 80 MEQ IV (10:12)
--- NOTE | 2020-07-10 11:29 | PC.NURSE ---
Addendum entered by Mary Weaver R.N. 07/10/20 12:04: Report given to [facility]. Pt left unit with all belongings via [facility] transport stretcher at 1204. Pt left unit in no distress. Original Note: Day Shift- Report called to GIOVANNI Blas at [facility] [address] at 1120 on current pt status update. Pt made NPO at 1115. Aware of transfer to [facility]. Pt also notified his of transfer. Pt states having all his belongings upon transfer. PIV S/L'd for transfer
== END 2020-07-10 12:04 | disposition short-term general hospital (02) | DRG 446 ==
LOC: ED 04:58 → AC 05:03
PROVIDERS: Admitting Provider Family Medicine; Emergency Provider Emergency Medicine; PCP Internal Medicine; Referring Provider Emergency Medicine; Visit Provider Internal Medicine
DX: K80.31 Calculus of bile duct with cholangitis, unspecified, with obstruction (principal); E78.5 Hyperlipidemia, unspecified; Z79.01 Long term (current) use of anticoagulants; Z86.718 Personal history of other venous thrombosis and embolism; Z87.891 Personal history of nicotine dependence; I83.91 Asymptomatic varicose veins of right lower extremity; R00.1 Bradycardia, unspecified; I44.30 Unspecified atrioventricular block
CPT/HCPCS: 36415; 71045; 71260; 74177; 74181; 76700; 80053; 81241; 82550; 83690; 84484; 85025; 85379; 85598; 85610; 85613; 85730; 86147; 87040; 87635; 93005; 93010; 94762; 99219; 99232; 99238; 99284; G0378; J2405; J2543; Q9967

== ENCOUNTER → 2020-08-06 14:14 | Outpatient (CLI) | payer MEDICARE, SELFPAY ==
[2020-07-06 05:33] VITALS: BMI 33.7
[2020-08-09 13:00] LABS: Protein C-Functional 125 % (73-180); Protein S-Functional 106 % (63-140)
== END ==
PROVIDERS: PCP Internal Medicine; Referring Provider Internal Medicine; Visit Provider Internal Medicine
DX: Z86.718 Personal history of other venous thrombosis and embolism (principal)
CPT/HCPCS: 36415; 85300; 85303; 85306

== ENCOUNTER → 2020-08-07 14:41 | Outpatient (CLI) | payer MEDICARE, SELFPAY ==
[2020-07-06 05:33] VITALS: BMI 33.7
[2020-08-10 03:28] LABS: COVID19 Sendout Not Detected (Not Detect)
== END ==
PROVIDERS: PCP Internal Medicine; Visit Provider Physician Assistant
DX: Z11.59 Encounter for screening for other viral diseases (principal)
CPT/HCPCS: 87635

== ENCOUNTER 2020-08-10 14:10 | Day surgery (SDC) | payer MEDICARE, SELFPAY ==
[2020-07-06 05:33] VITALS: BMI 33.7
[2020-08-06 12:05] VITALS: BMI 32.3
[2020-08-10] VITALS (18 sets, daily range): BP systolic 141–175; BP diastolic 77–99; PULSE 68–87; RESP 15–27; TEMP 36.5–36.9; O2SAT 91–98; BMI 32.0
--- NOTE | 2020-08-10 | PATH_ITS ---
[facility] Accession Number: [id number] . 01 Material submitted: . gallbladder - GALLBLADDER . 02 Diagnosis: Gallbladder, Cholecystectomy: Acute and chronic cholecystitis, cholesterolosis, and cholelithiasis. MRV 08/13/2020 1238 Local . 02 Electronically signed: . Mansi Meyer MD, Pathologist NPI- [id number] . 01 Gross description: . The specimen is received in formalin, labeled gallbladder and contents and consists of a 9.0 x 3.0 x 2.2 cm previously disrupted gallbladder with a 0.5 cm in diameter cystic duct. The serosa is graham-pink with a moderate amount of attached adipose tissue. Opening reveals green viscous bile with multiple black choleliths ranging from 0.1 to 0.4 cm and measuring 2.0 x 1.5 x 0.3 cm in aggregate. The mucosa is graham-pink and velvety to trabeculated, and the wall thickness measures 0.1 cm. Rag Grader sections are submitted to include the en face cystic duct margin, body and fundus in cassette A1. ([id number]) /[facility] 08/11/2020 1744 Local . 02 Pathologist provided ICD-10: K81.2 . 02 CPT . 582322 Performed at: 01 [facility] [address], [place], [place] [id number] MD Shady Pereira MD Phone: [phone] Performed at: 02 [facility] [address] [place], [place] [id number] MD Jeny Chauhan MD Phone: [phone]
[2020-08-10] MEDS: LACTATED RINGERS 1,000 ML 42 ML IV (14:56)
--- NOTE | 2020-08-10 16:08 | PM.PREOP ---
Pre-operative Note COVID-19 COVID-19 status: Negative Result date/Date tested (Pos, Neg/Pending): 08/07/20 Interval Note History & Physical reviewed/Exam performed by Physician: Yes Changes to H&P: Yes H&P completed within 30 days and has changed as indicated here:: The patient has seen Dr. Blackwell in the interim who feels that we can proceed with operation
[2020-08-10] MEDS: CEFAZOLIN 2 GM/100 ML FROZ.PIGGY IV (16:34)
--- NOTE | 2020-08-10 16:36 | SUR.OPER ---
Supine on padded OR bed, head on pillow, left arm padded and tucked at side, legs uncrossed, safety belt at thigh, tape over blanket over lower legs .
[2020-08-10] MEDS: BUPIVACAINE 0.5% (PF) VIAL 30 ML INJ (16:42)
[2020-08-10] MEDS: IOPAMIDOL 15 ML VIAL INJ (16:42)
[2020-08-10] MEDS: fentaNYL 100 MCG/2 ML INJ IV ×2 (18:22→18:27)
[2020-08-10] MEDS: HYDROMORPHONE 2 MG INJ IV ×4 (18:32→18:53)
[2020-08-10] MEDS: OXYCODONE/ACETAMINOPHEN 5/325 TABLET 1 TAB PO (18:43)
--- NOTE | 2020-08-10 18:47 | P.OP_ITS ---
Operative Date/Time/Diagnoses Date of procedure: 08/10/20 Time of procedure: 18:12 Pre-op diagnosis: Cholelithiasis with cholecystitis. History of choledocholithiasis with cholangitis. Status post ERCP with sphincterotomy and stone extraction in the past Post-op diagnosis: same Procedure & Clinicians Procedure: Laparoscopic cholecystectomy Same procedure as scheduled: Yes Indications: Symptomatic gallbladder disease Surgeon: Jamie Cooper Yes if Unassisted: Yes Anesthesia Type: General Operative Notes Findings: Fragile gallbladder with clear fluid within it. Cholangiogram not able to be done due to artery passing directly over the duct. Closure Type: primary Specimen(s): other (Gallbladder) Estimated Blood Loss (mL): 10 Blood products transfused: none Procedure in detail: The patient was placed supine on the operating room table underwent general endotracheal anesthesia. He was prepped and draped in the usual fashion. Local anesthetic was infiltrated beneath the umbilicus and a curvilinear incision made. He had a small hernia in this area from his prior a surgical procedure. I opened across it and cleaned the fascial edge. I entered into the peritoneal cavity and inserted 11 mm port. Sutures of 0 Ethibond were placed prior to inserting the port. the abdomen was insufflated and patient was reposition. Three additional ports were placed on the right costal margin. These were all 5 mm ports. Gallbladder is identified as a structure encased in fat. It was dissected off of the gallbladder and the gallbladder elevated. The end of the gallbladder was identified dissection was again here. The gallbladder was quite fragile and in dissecting the in the the end of the gallbladder I opened a small area into it and there was leakage of bile that was clear. I dissected out the cystic duct and it appeared that there was an artery on the surface of it. Clips were placed across these structures and they were divided and it was clear that this was an artery. The gallbladder is then dissected from its bed in the liver using cautery. It was detached. I attempted to remove it through the umbilical port but there were adhesions that prevented that which I had to take down with sharp and blunt dissection. Once I had accomplished this the gallbladder was removed without difficulty and the stay sutures were tied. The wound was irrigated along with the other 3 sub costal wounds. All were closed with 4 0 Vicryl subcuticular stitches and Steri- Strips. Dressing was applied and the patient was awakened and taken to recovery area in good condition. Complications: none Post-operative Condition: stable Disposition: PACU Plan for aftercare: Follow-up in the office
[2020-08-10] MEDS: LACTATED RINGERS 1,000 ML 125 ML IV (19:30)
[2020-08-10] MEDS: PRAVASTATIN 20 MG TABLET PO (21:37)
[2020-08-10] MEDS: GABAPENTIN 300 MG CAPSULE PO (21:37)
--- NOTE | 2020-08-10 22:11 | PC.NURSE ---
Pt arrived from PACU @ 1930 Alert/oriented. 4 bandaid sites across abdomen. CDI IVF LR @ 125cc/hr infusing into right wrist as per orders. Denies discomfort whne asked. Call light w/in reach, bed alarm on for pt safety. Continue w/plan of care.
--- NOTE | 2020-08-11 00:49 | PC.NURSE ---
Patient seen and assessed at 0008. Is alert and oriented. Has hearing loss in right ear and uses hearing aid which is out for the night. Breath sounds diminished but CTA with RA sat of 95%; on continuous oximetry per MD order. HRR. BP trending high and was 169/99 and is on no antihypertensive meds. Denies nausea. BT present but denies flatus as yet. Abdomen is large/round but patient states normal size for him. Is soft but tender to touch although denies pain/need for pain medication. Bandaid dressings to abdomen x 4 are all CDI. Denies dysuria, frequency or urgency and is using urinal to void. Is able to move himself in bed. Gait not assessed but patient states he pulled his right groin muscle on Monday and has been having difficulty mobilizing without hanging onto furniture objects as he walks; denies use of AD. Refusing SCD's so reminded to ankle wave and patient verbalizes/demonstrated understanding. Fall risk score is moderate; bed alarm is activated.
[2020-08-11] MEDS: LACTATED RINGERS 1,000 ML 125 ML IV ×2 (03:19→11:40)
[2020-08-11 03:26] VITALS: BP 136/93; PULSE 82; RESP 18; TEMP 36.8; O2SAT 96
[2020-08-11 07:28] LABS: Add Manual Diff / Slide Review NO; Basophils Absolute Auto 0 /uL (0-100); Basophils Percent Auto 0.2 % (0-2); Eosinophils Absolute Auto 0 /uL (0-450); Hemoglobin 13.2 g/dL (13.5-17.5); Lymphocytes Absolute Auto 900 /uL (1100-4500); Lymphocytes Percent Auto 6.7 % (25-40); Mean Corpuscular HGB Conc 33.7 % (30-36); Mean Corpuscular Hemoglobin 30.9 PG (26-34); Mean Corpuscular Volume 91.7 fL (80-100); Monocytes Absolute Auto 800 /uL (0-900); Monocytes Percent Auto 6.5 % (3-14); Neutrophils Absolute Auto 11300 /uL (1500-7000); Neutrophils Percent Auto 86.6 % (50-75); Platelet Count 181 X10^3/uL (150-400); Red Blood Cell Count 4.25 X10^6/uL (4.5-5.9)
[2020-08-11 07:48] VITALS: BP 143/80; PULSE 71; RESP 18; TEMP 36.9; O2SAT 94
[2020-08-11 07:55] LABS: Alanine Aminotransferase 31 IU/L (<50); Albumin 3.6 g/dL (3.5-5.0); Albumin Globulin Ratio 1.2 (1.0-2.8); Alkaline Phosphatase 66 U/L (38-126); Aspartate Aminotransferase 39 IU/L (17-59); BUN Creatinine Ratio 19.3 (6-22); Bilirubin Total 0.9 mg/dL (0.2-1.3); Blood Urea Nitrogen 17 mg/dL (9-20); Calcium 8.9 mg/dL (8.4-10.2); Carbon Dioxide 28 mmol/L (22-32); Chloride 103 mmol/L (98-107); Estimated Glomerular Filt Rate > 60.0 mL/min (>60); Globulin 3.1 g/dL (1.7-4.1); Glucose 182 mg/dL (80-110); HEMOLYSIS < 15 (0-50); Potassium 4.2 mmol/L (3.4-5.1); Sodium 136 mmol/L (137-145); Total Protein 6.7 g/dL (6.3-8.2)
[2020-08-11] MEDS: PANTOPRAZOLE 20 MG TABLET 40 MG PO (08:25)
[2020-08-11] MEDS: GABAPENTIN 300 MG CAPSULE PO (08:25)
[2020-08-11] MEDS: SENNOSIDES 8.6 MG TABLET 17.2 MG PO (08:25)
[2020-08-11] MEDS: ENOXAPARIN 40 MG/0.4 ML SYRINGE SUBCUT (08:25)
--- NOTE | 2020-08-11 10:01 | PC.NURSE ---
Addendum entered by Mariluz Gonzalez R.N. 08/11/20 14:30: @1414 d/c instructions, including f/u appt, wound/drsg care, rx medications and post-op restrictions given to patient and pt's ; pt d/c via wheelchair to private vehicle with personal belongings in hand. Original Note: pt denies pain, tender to abdomen, ice pack, denies flatulence, BTs hypactive; no nausea, tolerating diet;bandages to lap site c/d/i; IS 1500 X 5 breaths every hour, O2 RA=97%; up to bathroom with SBA; declines sitting in chair, at this time; using call light, as needed
--- NOTE | 2020-08-11 10:39 | CM.DANOTE ---
DCP/Assessment: Reviewed chart. Patient is a 80yr old male admitted to . for elective laparoscopic cholecystectomy on 08-10-20. PCP is Dr. Blackwell. Primary payor is 1)Medicare 2)[facility]. Met with patient this AM explained CM/SW role. Patient reports that he is primarily I in ADL's. Patient resides with spouse/Smita in [place]. Patient hopes to d/c home today without needs. Patient does report that he pulled muscle in left leg which is causing him some discomfort. Staff aware. P: Anticipate home today once cleared by provider. BHARATHI Everett Discharge Planning/Care Management Advanced directive, confirm from FAMILY Start: 08/10/20 22:04 Freq: Q24H Status: Active Protocol: Document 08/10/20 22:04 KMD (Rec: 08/10/20 22:05 KMD [id number]) Advance Directive, confirm on record Time 19:40 Person contacted Patient Copy received No CM Discharge Assessment Start: 08/11/20 10:21 Freq: Status: Active Protocol: Document 08/11/20 10:21 KJS (Rec: 08/11/20 10:39 KJS [id number]) Discharge Planning Assessment Assigned Criminal Lawyer BHARATHI Everett Contact Information Smita Mathis (spouse) ph# Advance Directives? Yes Advance Directives on File No History Provided By Patient,Medical Record Prior Living Arrangements Apartment/Condo Household Members spouse Type of transporation used prior to Drives own vehicle admit Independent with ADL's Yes Is patient alert and oriented? Yes Caregiver for Another No Barriers to Discharge No Discharge Plan Home Transportation Arrangement Spouse Whiteboard Updated in Patient Room with Yes name and ext. # of Criminal Lawyer Review Status In Process Next Review Type Continued Stay Review Pre-Anesthesia Assessment Start: 08/06/20 12:05 Freq: Status: Complete Protocol: Document 08/06/20 12:05 CAB (Rec: 08/06/20 12:20 CAB [id number]) Pre-Anesthesia Assessment Patient Information Reviewed Via Chart Review Diagnostic Results BMP/CMP,CBC Comment Recent labs @ [facility], COVID screen @ [facility] 08/07/20 Primary Care Provider Star Blackwell Seen Specialist in Last 12 Months Yes Specialist Seen General surgeon Primary Language Cameroonian Preferred Language Cameroonian Height 177.8 cm Weight 102.058 kg Body Mass Index (BMI) 32.3 Hearing Ability Normal Visual Impairment No Limitations Visual Assist None Dentition Type Teeth, Natural Present Barriers to Learning None Hx Anesthesia Reactions No Hx Family Anesthesia Reaction No Hx Malignant Hyperthermia No Hx Blood Transfusions No Anesthesia Review Requested No International Flight Attendant No alcohol intake current alcohol intake frequency 0-2 drinks per day Smoking Status Former smoker Tobacco type cigarettes how long ago did patient quit smoking 30 years ago Substance Use Type marijuana Pain Present Pain Reported Musculoskeletal Symptoms Joint Pain Patient is completely paralyzed or No completely immobile Mental Status Oriented to own ability Hx Sleep Apnea No Currently Taking a Beta Hillary No Hx Chest Pain Yes: Atypical Anti-Coagulant Therapy No Hx Pacemaker/ICD No Pacemaker Rep Required? No Urinary Catheter Present No Hx Urinary Self Catheterization No Diabetes No Have you had any close contact with Unknown someone diagnosed with COVID-19? Marital Status Lives With spouse Patient Discharge Plan Description Return Home Do You Have Any Spiritual Beliefs That No May Affect Your HC Choices? Do You Have Any Cultural Practices That No May Affect Your HC Choices? Emergency Contact Name Smita Mathis, Emergency Contact Advance Directives? Yes Advance Directives on File No Power of Well Surveying Engineer Yes Power of Well Surveying Engineer Name Smita Mathis, Power of Well Surveying Engineer
[2020-08-11 11:36] VITALS: BP 141/75; PULSE 76; RESP 16; TEMP 37.2; O2SAT 95
--- NOTE | 2020-08-11 12:29 | PT.IIE ---
Current Diagnoses Calculus of gallbladder with chronic cholecystitis without obstruction (08/10/20) Calculus of gallbladder without cholecystitis without obstruction (08/10/20) Surgery Performed Operation Date: 08/10/20 14:45 Actual Procedures p Laparoscopic Cholecystectomy with Intraoperative Cholangiograms - Jamie Valenzuela MD Surgical History (Last Updated 08/11/20 @ 07:21 by Star Blackwell MD) Anesthesia (Resolved) History of ERCP (Acute 2019) History of nephrectomy, unilateral (Acute 05/17/18) Hx of cystoscopy (Acute 07/03/17) S/P cholecystectomy (Acute 08/10/20) Medical History (Last Updated 08/06/20 @ 12:16 by Gayathri Marroquin RN) Cardiomyopathy (Chronic) Current use of assisted anticoagulation (Resolved) Erectile dysfunction (Chronic) H/O deep venous thrombosis (Chronic) History of recent hospitalization (Acute) Hyperlipemia (Chronic) Physical Therapy Inpatient Evaluation/Re-Eval M1 PT/OT-IP Prior Functional Status Start: 08/11/20 09:30 Freq: NEEDED Status: Active Protocol: Document 08/11/20 12:06 AW (Rec: 08/11/20 12:22 AW [id number]) Medical Review Prior Functional Status Medical History Reviewed Yes Communication WNL. Pt has right side hearing loss and uses a hearing aid. Pt is an effective verbal communicator. Mobility and Gait Pt is independent without assistive device Activities of Daily Living and IADL's Independent, including driving . Prior Functional Level (Other details) Pt enjoys woodworking in his basement shop. Social History Household Members spouse Living Arrangements Apartment/Condo Number of Floors (Floors) Two Floors Number of Stairs To Enter/Railing? No KADEN. Pt descends 17 steps with right railing to access bottom level. Home Environment Standard Height Toilet,Walk in Shower Home Equipment Four Wheel Walker Employment Status Retired Additional Social History Comment Pt lives in [place] with his , Smita. M2 PT-IP Current Condition Start: 08/11/20 09:30 Freq: NEEDED Status: Active Protocol: Document 08/11/20 12:06 AW (Rec: 08/11/20 12:22 AW [id number]) Physical Therapy Current Condition Current Condition Evaluation Date 08/11/20 Treatment Diagnosis s/p lap chinmay; difficulty in walking Onset Date 08/10/20 Precautions Abdominal Surgery Precautions Log Roll,Lifting Restrictions, Gait Belt above Incisional Area M3 PT-IP Subjective Start: 08/11/20 09:30 Freq: NEEDED Status: Active Protocol: Document 08/11/20 12:06 AW (Rec: 08/11/20 12:22 AW [id number]) Subjective Physical Therapy Visit Type Type Initial Evaluation Visit Start Time 11:05 Visit Stop Time 11:19 Total Visit Minutes 14 Notes SPT Shady was present during this eval. Physical Therapy Visit Comments Patient Comments I'm just waiting for Dr Valenzuela to come around so I can go home. Therapy Pain Assessment Pain When Pain Assessed During Mobility Pain Present Pain Present Pain Reported Location right groin Scale Used not quantified M4 PT-IP Mobility and Gait Start: 08/11/20 09:30 Freq: NEEDED Status: Active Protocol: Document 08/11/20 12:06 AW (Rec: 08/11/20 12:22 AW [id number]) PT-Bed Mobility Assessment Rolling Type of Rolling Log Rolling,Roll to Right Level of Assist Standby Assistance Supine to Sit Supine to Sit Standby Assistance Sit to Supine Sit to Supine Standby Assistance Scooting Scooting to Edge of Bed Standby Assistance PT-Transfer Assessment Sit to and From Stand Sit to and from Stand Standby Assistance Equipment Transfer Assistive Device Gait Belt Orthotic/Prosthetic Devices or Brace: No Transfers Transfer Destination Bed,Chair Transfer Technique pt ambulated without AD Transfer Ability Level of Assist Standby Assistance Comments Mobility Comments Pt was walking around the room with IV pole support when PT and SPT arrived. After brief instruction in log roll technique, pt completed log roll in and out of bed with verbal cues and SBA. He then stood and reached for the IV pole but PT encouraged him to walk without support. He ambulated a total of 150 feet in the halls with SBA. On return to the room, pt transferred to the chair SBA where he was positioned with call light and all needs in reach. Gait Assessment Gait Gait Assistance Required: Standby Assistance Distance (Feet) 150 Able to Maintain Weight Bearing Status Yes During Gait Assistive Devices Assistive Device Gait Belt Orthotic/Prosthetic Devices or Brace: No Gait Deviations General Gait Pattern Antalgic,Decreased Stride Length,Decreased Feet Clearance,Flexed Trunk,Lateral Trunk Lean,Step-to Gait,Wide Based Gait Factors Limiting Gait Function Factors Limiting Gait Function Decreased Activity Tolerance, Decreased Strength,Poor Balance Comments Gait Comments Gait was notable for bilateral hip ER/toe out and wide JOE. Pt had decreased RLE stance time secondary to reported right groin pain. Stair Climbing Assessment Evaluation Level of Assist On Stairs Standby Assistance Technique/Endurance Stair Climbing Direction Ascend and Descend Stair Climbing Technique Step Over Step Number of Steps Climbed 3 Query Text: Stair Climbing Set # Repetitions (reps) 1 PT-Balance Assessment Sitting Balance and Reactions Static Sitting Balance Ability Good Dynamic Sitting Balance Ability Good Standing Balance and Reactions Static Standing Balance Ability Good Dynamic Standing Balance Ability Good Device Used no AD M5 PT-IP Objective Assessments Start: 08/11/20 09:30 Freq: NEEDED Status: Active Protocol: Document 08/11/20 12:06 AW (Rec: 08/11/20 12:22 [id number]) Orientation Orientation/Cognition Level of Alertness Alert Orientation Name,Day of Week,Place, Situation Language Function Ability Hard of Hearing Safety Awareness Understands Safety Issues Memory Description No Deficits Noted Gross Range of Motion Lower Extremity ROM Assessment Within Functional Limits Strength Lower Extremity Strength Assessment Within Functional Limits Coordination Assessment Gross Coordination Gross Coordination WNL Sensation Assessment Sensation Gross Sensation WNL M6 PT-IP Treatment Start: 08/11/20 09:30 Freq: NEEDED Status: Active Protocol: Document 08/11/20 12:06 AW (Rec: 08/11/20 12:22 [id number]) Physical Therapy Treatment Education Education Provided Precautions,Safety Other Treatments Other Treatment Performed Provided education on role of PT, energy conservation, and abdominal surgery precautions. M7 PT-IP Assessment and Plan Start: 08/11/20 09:30 Freq: NEEDED Status: Active Protocol: Document 08/11/20 12:06 AW (Rec: 08/11/20 12:22 [id number]) PT Summary Assessment and Plan Potential Rehabilitation Potential Good Status of Condition at Evaluation Stable Summary Impairments Pain,Strength,Gait,Activity Tolerance Assessment Summary Duncan is a 80 yo man seen for PT evaluation on post-op day 1 following laparoscopic cholecystectomy. He has had a protracted course following brief hospitalization last month and transfer to [facility] for ERCP. Pt is independent in all regards at baseline. He required SBA for all mobilities on evaluation but demonstrated good attention to abdominal precautions. PT anticipates this will be safe to discharge to home with assist once medically cleared. Frequency of Treatment Frequency Of Treatment Once a Day Treatment Plan Physical Therapy Treatment Plan Bed Mobility Training,Transfer Training,Gait Training, Therapeutic Exercise,Balance Retraining,Discharge Planning, Hot or Cold Pack Recommendations To Nursing Amount of Assist Needed Standby Assistance Discharge Recommendations PT Discharge Recommendations Home with Assistance Transportation Needs at Discharge Private Vehicle
--- NOTE | 2020-08-12 15:11 | P.DS_ITS ---
History of Present Illness History of Present Illness Date Patient Seen: 08/10/20 Time Patient Seen: 15:11 Chief complaint: SDC Narrative: Patient is a gentleman who was brought in for elective cholecystectomy. He had multiple cardiac issues including atrial fibrillation. Discharge Providers Provider Discharge Date: 08/10/20 Primary care physician: Star Blackwell MD Consults: 08/10/20 19:44 Consult to Discharge Planning Routine Comment: Consult to Physical Therapy Evaluate & Treat Comment: Difficulty walking due to groin pain Physician Instructions: Evaluate and Treat Discharge provider: Jamie Valenzuela MD Summary Hospital Course Discharge Diagnosis: Chronic cholecystitis with cholelithiasi Chronic atrial fibrillation Chronic gastroesophageal reflux disease Chronic elevation of his cholesterol treated with medication Obesity with a BMI of 32 History of cardiomyopathy type uncertain Hospital Course: Patient underwent laparoscopic cholecystectomy. However it was late and his did not feel he could ambulate well due to an injury in his right going he had sustained days before the operation of which she had not informed me. He was brought in overnight and was seen by Physical therapy. He was ambulating and felt much better and was discharged home to follow up in the office. Status at Discharge Cognitive/behavioral status at discharge: oriented Functional status at discharge: independent ambulation Overall status at discharge: patient is progressing back to baseline Exam Vital Signs (past 8 hours): Oxygen Delivery Method Room Air Oxygen Flow Rate 0 Narrative Exam Narrative: Lungs clear. Heart irregularly irregular. Abdomen is soft. Appropriately tender near the incisions. They are intact. Objective Labs Result Diagrams: 08/11/20 06:35 08/11/20 06:35 Discharge Plan Discharge Plan Patient Disposition: Home Provider Discharge Comment: Your operation went well. He did have a fair amount of inflammation her gallbladder. Discharge orders & Medications Discharge Orders: Discharge (Order); Ordered 08/11/20 Ordered By: Jamie Valenzuela Prescriptions: New oxycodone-acetaminophen [Percocet] 5-325 mg tablet See Rx Instructions .ROUTE .COMPLEX PRN (Reason: painful procedure) Qty: 12 RF: 0 Continued pravastatin [Pravachol] 20 mg tablet 20 mg PO QDAY Qty: 90 RF: 1 pantoprazole 40 mg Tablet,Delayed Release (Dr/Ec) 40 mg PO DAILY RF: 0 Follow up/Referrals: Star Blackwell MD [Primary Care Provider] - Jamie Valenzuela MD [Physician] - As previously scheduled (If you need to reach a doctor please call our office. If the office is closed listen to the entire message and at the end you will be connected with the page candy rolling machine operator who will call the doctor on-call for our service.) Diet/Activity/Treatments Diet: Diet as Tolerated Activity: Do not operate machinery or drive today. Do not sign important documents today. You may resume normal activity tomorrow. Do not drive until pain-free off medication. Do not lift over 10 lb or strain for the next 4 weeks. You may walk. Skin/Wound/Dressing Care Report to your healthcare provider any signs of infection, such as:: increased pain, unusual drainage and unusual redness Dressing: You may remove the Band-Aids in 2 days and shower. Leave the tape under the Band-Aids fall off on their own. Visit Report/Discharge Packet Instructions: DI for Laparoscopy Stand Alone Forms: Surgery Discharge Discharge Data Primary Care Provider: Star Blackwell Attending Provider: Jamie Valenzuela Discharges patient from system. Discharge Date/Time: 08/11/20 14:31 Quality VTE Deep Vein Thrombosis/Pulmonary Embolism Present on Admission: No
== END 2020-08-11 14:31 | disposition home or self-care (01) ==
LOC: OR 18:48 → AC 19:41
PROVIDERS: PCP Internal Medicine; Referring Provider Specialist; Visit Provider Specialist
PROC: 0FT44ZZ Resection of Gallbladder, Percutaneous Endoscopic Approach (ICD-10-PCS; CPT 47562; principal; 2020-08-10 14:45)
DX: K81.2 Acute cholecystitis with chronic cholecystitis (principal); E78.5 Hyperlipidemia, unspecified; Z86.718 Personal history of other venous thrombosis and embolism; Z79.01 Long term (current) use of anticoagulants; I42.9 Cardiomyopathy, unspecified; K82.8 Other specified diseases of gallbladder
CPT/HCPCS: 47562; 36415; 80053; 85025; 97161; J0690; J1170; J1650; J2704; J3010

== ENCOUNTER → 2021-06-08 15:58 | Outpatient (CLI) | payer MEDICARE, SELFPAY ==
[2020-08-10 22:03] VITALS: BMI 32.0
[2021-06-08 17:03] LABS: Alanine Aminotransferase 24 IU/L (<50); Albumin 4.5 g/dL (3.5-5.0); Albumin Globulin Ratio 1.3 (1.0-2.8); Alkaline Phosphatase 86 U/L (38-126); Aspartate Aminotransferase 29 IU/L (17-59); BUN Creatinine Ratio 15.3 (6-22); Bilirubin Total 1.1 mg/dL (0.2-1.3); Blood Urea Nitrogen 17 mg/dL (9-20); Calcium 9.6 mg/dL (8.4-10.2); Carbon Dioxide 28 mmol/L (22-32); Chloride 105 mmol/L (98-107); Cholesterol 144 mg/dL (140-199); Estimated Glomerular Filt Rate > 60.0 mL/min (>60); Globulin 3.6 g/dL (1.7-4.1); Glucose 92 mg/dL (80-110); HDL Cholesterol 40 mg/dL (40-60); HEMOLYSIS < 15 (0-50); LDL Cholesterol Calculated 69 mg/dL (<100); Potassium 4.5 mmol/L (3.4-5.1); Sodium 141 mmol/L (137-145); Total Protein 8.1 g/dL (6.3-8.2); Triglycerides 175 mg/dL (35-150)
== END ==
PROVIDERS: PCP Internal Medicine; Referring Provider Internal Medicine; Visit Provider Internal Medicine
DX: E78.2 Mixed hyperlipidemia (principal); I42.9 Cardiomyopathy, unspecified
CPT/HCPCS: 36415; 80053; 80061

== ENCOUNTER → 2021-11-22 14:00 | Outpatient (CLI) | payer MEDICARE, SELFPAY ==
[2020-08-10 22:03] VITALS: BMI 32.0
[2021-11-22 15:02] LABS: Alanine Aminotransferase 22 IU/L (<50); Albumin 4.3 g/dL (3.5-5.0); Albumin Globulin Ratio 1.3 (1.0-2.8); Alkaline Phosphatase 78 U/L (38-126); Aspartate Aminotransferase 25 IU/L (17-59); BUN Creatinine Ratio 14.8 (6-22); Bilirubin Total 1.1 mg/dL (0.2-1.3); Blood Urea Nitrogen 16 mg/dL (9-20); Calcium 9.6 mg/dL (8.4-10.2); Carbon Dioxide 29 mmol/L (22-32); Chloride 104 mmol/L (98-107); Estimated Glomerular Filt Rate > 60.0 mL/min (>60); Globulin 3.3 g/dL (1.7-4.1); Glucose 84 mg/dL (80-110); HEMOLYSIS 16 (0-50); Potassium 4.7 mmol/L (3.4-5.1); Sodium 140 mmol/L (137-145); Total Protein 7.6 g/dL (6.3-8.2)
== END ==
PROVIDERS: PCP Internal Medicine; Referring Provider Internal Medicine; Visit Provider Internal Medicine
DX: E78.2 Mixed hyperlipidemia (principal); L82.1 Other seborrheic keratosis
CPT/HCPCS: 36415; 80053

== ENCOUNTER → 2022-03-04 10:53 | Outpatient (CLI) | payer MEDICARE, SELFPAY ==
[2020-08-10 22:03] VITALS: BMI 32.0
--- NOTE | 2022-03-04 10:54 | DI.RAD.S_ITS ---
PROCEDURE: XR FOOT RT MIN 3V INDICATIONS: foot pain TECHNIQUE: 3 views of the foot were acquired. COMPARISON: None. FINDINGS: Bones: No fractures or dislocations. No suspicious bony lesions. Mild midfoot osteoarthritis. Mild tibiotalar joint and subtalar joint osteoarthritis. Soft tissues: No tibiotalar joint effusion. Achilles tendon appears normal. IMPRESSION: Osteoarthritis. Dictated by: Leilani Davies MD, PhD on 03/04/2022 at 14:19 Approved by: Leilani Davies MD, PhD on 03/04/2022 at 14:20
== END ==
PROVIDERS: PCP Internal Medicine; Referring Provider Internal Medicine; Visit Provider Internal Medicine
DX: M79.671 Pain in right foot (principal); M19.071 Primary osteoarthritis, right ankle and foot
CPT/HCPCS: 73630

== ENCOUNTER → 2022-08-31 11:03 | Outpatient (CLI) | payer MEDICARE, SELFPAY ==
[2020-08-10 22:03] VITALS: BMI 32.0
[2022-08-31 12:32] LABS: Add Manual Diff / Slide Review NO; Basophils Absolute Auto 100 /uL (0-100); Basophils Percent Auto 0.7 % (0-2); Eosinophils Absolute Auto 400 /uL (0-450); Eosinophils Percent Auto 3.7 % (2-4); Hematocrit 43.4 % (41-53); Hemoglobin 14.8 g/dL (13.5-17.5); Lymphocytes Absolute Auto 1600 /uL (1100-4500); Lymphocytes Percent Auto 15.8 % (25-40); Mean Corpuscular HGB Conc 34.2 % (30-36); Mean Corpuscular Hemoglobin 30.9 PG (26-34); Mean Corpuscular Volume 90.3 fL (80-100); Monocytes Absolute Auto 700 /uL (0-900); Monocytes Percent Auto 7.3 % (3-14); Neutrophils Absolute Auto 7200 /uL (1500-7000); Neutrophils Percent Auto 72.5 % (50-75); Platelet Count 241 X10^3/uL (150-400); Red Cell Distribution Width 13.3 % (11.6-14.8); White Blood Cell Count 9.9 X10^3/uL (4.5-11.0)
== END ==
PROVIDERS: PCP Internal Medicine; Referring Provider Family Medicine; Visit Provider Family Medicine
DX: M10.9 Gout, unspecified (principal)
CPT/HCPCS: 36415; 84550; 85025

== ENCOUNTER → 2022-12-02 14:28 | Outpatient (CLI) | payer MEDICARE, SELFPAY ==
[2020-08-10 22:03] VITALS: BMI 32.0
[2022-12-02 14:47] LABS: Add Manual Diff / Slide Review NO; Basophils Absolute Auto 100 /uL (0-100); Basophils Percent Auto 1.4 % (0-2); Eosinophils Absolute Auto 400 /uL (0-450); Hematocrit 43.4 % (41-53); Lymphocytes Absolute Auto 2000 /uL (1100-4500); Lymphocytes Percent Auto 22.8 % (25-40); Mean Corpuscular HGB Conc 34.6 % (30-36); Mean Corpuscular Hemoglobin 31.2 PG (26-34); Mean Corpuscular Volume 90.2 fL (80-100); Monocytes Absolute Auto 600 /uL (0-900); Monocytes Percent Auto 7.5 % (3-14); Neutrophils Absolute Auto 5400 /uL (1500-7000); Neutrophils Percent Auto 63.3 % (50-75); Platelet Count 231 X10^3/uL (150-400); Red Blood Cell Count 4.82 X10^6/uL (4.5-5.9); White Blood Cell Count 8.6 X10^3/uL (4.5-11.0)
[2022-12-02 15:02] LABS: Erythrocyte Sedimentation Rate 3 MM/HR (0-15)
[2022-12-02 15:15] LABS: Alanine Aminotransferase 21 IU/L (<50); Albumin 4.2 g/dL (3.5-5.0); Albumin Globulin Ratio 1.3 (1.0-2.8); Alkaline Phosphatase 71 U/L (38-126); Aspartate Aminotransferase 22 IU/L (17-59); BUN Creatinine Ratio 17.8 (6-22); Bilirubin Total 1.2 mg/dL (0.2-1.3); Blood Urea Nitrogen 18 mg/dL (9-20); C-Reactive Protein Quant 0.6 mg/dL (<1.0); Calcium 9.5 mg/dL (8.4-10.2); Carbon Dioxide 28 mmol/L (22-32); Chloride 102 mmol/L (98-107); Estimated Glomerular Filt Rate > 60 mL/min (>60); Globulin 3.2 g/dL (1.7-4.1); Glucose 107 mg/dL (80-110); HEMOLYSIS < 15 (0-50); Potassium 4.4 mmol/L (3.4-5.1); Sodium 140 mmol/L (137-145); Total Protein 7.4 g/dL (6.3-8.2)
== END ==
PROVIDERS: PCP Internal Medicine; Referring Provider Internal Medicine; Visit Provider Internal Medicine
DX: E78.2 Mixed hyperlipidemia (principal); M10.9 Gout, unspecified
CPT/HCPCS: 36415; 80053; 85025; 85651; 86140

== ENCOUNTER → 2024-01-15 09:16 | Outpatient (CLI) | payer MEDICARE, SELFPAY ==
[2020-08-10 22:03] VITALS: BMI 32.0
[2024-01-15 10:51] LABS: Alanine Aminotransferase 18 IU/L (<50); Albumin 3.6 g/dL (3.5-5.0); Alkaline Phosphatase 77 U/L (38-126); Aspartate Aminotransferase 20 IU/L (17-59); BUN Creatinine Ratio 18.4 (6-22); Bilirubin Total 0.7 mg/dL (0.2-1.3); Blood Urea Nitrogen 19 mg/dL (9-20); Calcium 9.5 mg/dL (8.4-10.2); Carbon Dioxide 28 mmol/L (22-32); Chloride 106 mmol/L (98-107); Cholesterol 129 mg/dL (140-199); Estimated Glomerular Filt Rate > 60 mL/min (>60); Globulin 3.7 g/dL (1.7-4.1); Glucose 112 mg/dL (80-110); HDL Cholesterol 34 mg/dL (40-60); HEMOLYSIS < 15 (0-50); LDL Cholesterol Calculated 65 mg/dL (<100); Potassium 4.6 mmol/L (3.4-5.1); Sodium 139 mmol/L (137-145); Total Protein 7.3 g/dL (6.3-8.2); Triglycerides 148 mg/dL (35-150); Uric Acid 6.3 mg/dL (3.5-8.5)
== END ==
PROVIDERS: PCP Internal Medicine; Referring Provider Internal Medicine; Visit Provider Internal Medicine
DX: E78.2 Mixed hyperlipidemia (principal); I42.9 Cardiomyopathy, unspecified; M10.9 Gout, unspecified
CPT/HCPCS: 36415; 80053; 80061; 84550

== ENCOUNTER → 2024-12-11 11:16 | Outpatient (CLI) | payer MEDICARE, SELFPAY ==
[2020-08-10 22:03] VITALS: BMI 32.0
[2024-12-11 11:56] LABS: Add Manual Diff / Slide Review NO; Basophils Absolute Auto 0 /uL (0-100); Basophils Percent Auto 0.5 % (0-2); Eosinophils Absolute Auto 200 /uL (0-450); Eosinophils Percent Auto 2.5 % (2-4); Hematocrit 42.7 % (41-53); Hemoglobin 14.7 g/dL (13.5-17.5); Lymphocytes Absolute Auto 1400 /uL (1100-4500); Lymphocytes Percent Auto 14.2 % (25-40); Mean Corpuscular HGB Conc 34.4 % (30-36); Mean Corpuscular Hemoglobin 31.5 PG (26-34); Mean Corpuscular Volume 91.6 fL (80-100); Monocytes Absolute Auto 800 /uL (0-900); Neutrophils Absolute Auto 7300 /uL (1500-7000); Neutrophils Percent Auto 74.8 % (50-75); Platelet Count 239 X10^3/uL (150-400); Red Blood Cell Count 4.67 X10^6/uL (4.5-5.9); Red Cell Distribution Width 13.1 % (11.6-14.8); White Blood Cell Count 9.8 X10^3/uL (4.5-11.0)
[2024-12-11 12:23] LABS: Alanine Aminotransferase 23 IU/L (<50); Albumin 4.1 g/dL (3.5-5.0); Albumin Globulin Ratio 1.4 (1.0-2.8); Alkaline Phosphatase 60 U/L (38-126); Aspartate Aminotransferase 25 IU/L (17-59); BUN Creatinine Ratio 15.5 (6-22); Bilirubin Total 1.1 mg/dL (0.2-1.3); Blood Urea Nitrogen 17 mg/dL (9-20); C-Reactive Protein Quant 0.7 mg/dL (<1.0); Calcium 9.2 mg/dL (8.4-10.2); Carbon Dioxide 23 mmol/L (22-32); Chloride 105 mmol/L (98-107); Cholesterol 125 mg/dL (140-199); Creatine Kinase 100 U/L (55-170); Estimated Glomerular Filt Rate > 60 mL/min (>60); Glucose 124 mg/dL (80-110); HDL Cholesterol 34 mg/dL (40-60); HEMOLYSIS < 15 (0-50); LDL Cholesterol Calculated 53 mg/dL (<100); Potassium 4.3 mmol/L (3.4-5.1); Sodium 138 mmol/L (137-145); Total Protein 7.1 g/dL (6.3-8.2); Triglycerides 190 mg/dL (35-150); Uric Acid 6.3 mg/dL (3.5-8.5)
[2024-12-11 12:51] LABS: TSH w/ Reflex to FT4 1.62 uIU/mL (0.47-4.68)
== END ==
LOC: LAB 11:18
PROVIDERS: PCP Internal Medicine; Referring Provider Internal Medicine; Visit Provider Internal Medicine
DX: E78.2 Mixed hyperlipidemia (principal); I42.9 Cardiomyopathy, unspecified; M25.50 Pain in unspecified joint; M79.10 Myalgia, unspecified site; M10.9 Gout, unspecified
CPT/HCPCS: 36415; 80053; 80061; 82550; 84443; 84550; 85025; 86140

== ENCOUNTER → 2025-02-04 10:20 | Outpatient (CLI) | payer MEDICARE, SELFPAY ==
[2020-08-10 22:03] VITALS: BMI 32.0
--- NOTE | 2025-02-04 10:21 | DI.RAD.S_ITS ---
PROCEDURE: XR KNEE RT 3V INDICATIONS: knee pain TECHNIQUE: 3 views of the knee were acquired. COMPARISON: None. FINDINGS: Bones: No fractures or dislocations. No suspicious bony lesions. Mild to moderate tricompartmental osteoarthritis with osseous hypertrophy and mild joint space narrowing. Soft tissues: No significant joint effusion. Chondrocalcinosis. IMPRESSION: Mild to moderate tricompartmental osteoarthritis. Dictated by: Leilani Davies MD, PhD on 02/04/2025 at 12:22 Approved by: Leilani Davies MD, PhD on 02/04/2025 at 12:22
== END ==
PROVIDERS: PCP Internal Medicine; Referring Provider Internal Medicine; Visit Provider Internal Medicine
DX: M17.11 Unilateral primary osteoarthritis, right knee (principal); M25.561 Pain in right knee
CPT/HCPCS: 73562

== ENCOUNTER → 2025-03-25 12:06 | Outpatient (CLI) | payer MEDICARE, SELFPAY ==
[2020-08-10 22:03] VITALS: BMI 32.0
[2025-03-25 12:15] LABS: Crystals Body Fluid - IN-HOUSE NONE Present
== END ==
PROVIDERS: PCP Internal Medicine; Visit Provider Orthopaedic Surgery Adult Reconstructive Orthopaedic Surgery
DX: M17.11 Unilateral primary osteoarthritis, right knee (principal)
CPT/HCPCS: 89060

== ENCOUNTER → 2025-04-07 16:41 | Outpatient (CLI) | payer MEDICARE, SELFPAY ==
[2020-08-10 22:03] VITALS: BMI 32.0
[2025-04-07 18:02] LABS: Influenza A - CEPHEID Flu A POSITIVE (NEGATIVE); Influenza B - CEPHEID Flu B NEGATIVE (NEGATIVE); Respiratory Syncytial Virus Negative (Negative)
[2025-04-07 18:03] LABS: COVID-19 CEPHEID 4-PLEX PCR Negative (Negative)
== END ==
PROVIDERS: PCP Internal Medicine; Visit Provider Internal Medicine
DX: B34.9 Viral infection, unspecified (principal); R05.9 Cough, unspecified
CPT/HCPCS: 0241U

== ENCOUNTER → 2025-04-07 16:41 | Outpatient (CLI) | payer MEDICARE, SELFPAY ==
[2020-08-10 22:03] VITALS: BMI 32.0
--- NOTE | 2025-04-07 16:43 | DI.RAD.S_ITS ---
PROCEDURE: XR CHEST 2V INDICATIONS: cough TECHNIQUE: 2 views of the chest were acquired. COMPARISON: [facility], CR, XR CHEST 1V, 07/06/2020, 3:43. FINDINGS: Heart, mediastinum and pulmonary vascular: Heart is equivocally enlarged.. Mediastinum is unremarkable. Pulmonary vascular is normal. Lungs: Minor bibasilar airspace disease likely represents atelectasis Pleural spaces: Normal-no effusions or pneumothorax. IMPRESSION: Minor bibasilar atelectasis Dictated by: Star Ray M.D. on 04/09/2025 at 11:47 Approved by: Star Ray M.D. on 04/09/2025 at 11:48
== END ==
LOC: RAD 16:43
PROVIDERS: PCP Internal Medicine; Referring Provider Internal Medicine; Visit Provider Internal Medicine
DX: B34.9 Viral infection, unspecified (principal); R05.9 Cough, unspecified
CPT/HCPCS: 0241U; 71046

== ENCOUNTER → 2025-07-17 14:50 | Outpatient (CLI) | payer MEDICARE, SELFPAY ==
[2025-04-10 13:28] VITALS: BMI 32.0
[2025-07-17 15:46] LABS: Add Manual Diff / Slide Review NO; Hematocrit 43.1 % (41-53); Hemoglobin 14.9 g/dL (13.5-17.5); Lymphocytes Absolute Auto 1800 /uL (1100-4500); Mean Corpuscular HGB Conc 34.6 % (30-36); Mean Corpuscular Hemoglobin 31.0 PG (26-34); Mean Corpuscular Volume 89.9 fL (80-100); Platelet Count 239 X10^3/uL (150-400)
[2025-07-17 15:48] LABS: Alanine Aminotransferase 15 IU/L (<50); Albumin 4.2 g/dL (3.5-5.0); Albumin Globulin Ratio 1.4 (1.0-2.8); Alkaline Phosphatase 75 U/L (38-126); Blood Urea Nitrogen 18 mg/dL (9-20); Calcium 9.3 mg/dL (8.4-10.2); Carbon Dioxide 27 mmol/L (22-32); Chloride 106 mmol/L (98-107); Estimated Glomerular Filt Rate > 60 mL/min (>60); Globulin 3.0 g/dL (1.7-4.1); Glucose 110 mg/dL (70-99); HEMOLYSIS < 15 (0-50); Potassium 4.9 mmol/L (3.4-5.1); Sodium 142 mmol/L (137-145); Total Protein 7.2 g/dL (6.3-8.2)
[2025-07-17 16:15] LABS: TSH w/ Reflex to FT4 1.81 uIU/mL (0.47-4.68)
== END ==
PROVIDERS: Family Provider Internal Medicine; PCP Internal Medicine; Referring Provider Internal Medicine; Visit Provider Internal Medicine
DX: E78.2 Mixed hyperlipidemia (principal); R42 Dizziness and giddiness; I42.9 Cardiomyopathy, unspecified
CPT/HCPCS: 36415; 80053; 84443; 85025

== ENCOUNTER → 2025-07-31 13:45 | Outpatient (CLI) | payer MEDICARE, SELFPAY ==
[2025-04-10 13:28] VITALS: BMI 32.0
== END ==
LOC: CAR 13:46
PROVIDERS: Family Provider Internal Medicine; PCP Internal Medicine; Referring Provider Internal Medicine; Visit Provider Internal Medicine
DX: R42 Dizziness and giddiness (principal)
CPT/HCPCS: 93246